=== PATIENT | female | born 2000 | race Caucasian/White ===

== ENCOUNTER → 2024-05-08 | Outpatient (CLI) | payer SELFPAY ==
[2024-05-08 12:16] LABS: Absolute Neutrophil Count 4.8 X10^3/uL (2.0-7.7); Basophil# 0.03 X10^3/uL; Basophil% 0.4 % (0-1); Eosinophil# 0.03 X10^3/uL; Eosinophils% 0.4 % (0-5); Hematocrit 41.7 % (37-47); Hemoglobin 13.8 g/dL (12.0-15.0); Mean Corp Hgb Conc 33.1 g/dL (32-36); Mean Corpuscular Hgb 29.1 pg (27.0-32.0); Mean Corpuscular Volume 87.8 fL (81-99); Mean Platelet Vol. 8.8 fl (6.2-12.0); Monocyte# 0.44 X10^3/uL; Monocyte% 6.5 % (0-10); NRBC Flagged by Analyzer 0 % (0-5); Neutrophil % 70.4 % (47-70); Platelet Count 150 K/mm3 (150-450); RBC Distribution Width SD 38.9 fl (35.1-43.9); Red Blood Count 4.75 M/mm3 (4.2-5.4); White Blood Count 6.8 K/mm3 (4.4-11.0)
[2024-05-08 13:12] LABS: HIV - WCH Non-Reactive (Nonreactive); Hepatitis B Surface Antigen Non-Reactive (Nonreactive); Hepatitis C Antibody Non-Reactive (Nonreactive); Rubella IgG Reactive (Nonreactive); Syphilis Antibodies Non-reactive
[2024-05-12 20:07] LABS: Chlamydia By Nucleic Acid AMP Negative (Negative); Gonococcus By Nucleic Acid AMP Negative (Negative)
[2024-05-16 09:33] LABS: HPV Reflexed? NOT INDICATED
== END | disposition home or self-care (01) ==
PROVIDERS: Referring Provider Advanced Practice Midwife; Visit Provider Advanced Practice Midwife
DX: Z34.00 Encounter for supervision of normal first pregnancy, unspecified trimester (principal)
CPT/HCPCS: 36415; 85025; 86703; 86762; 86780; 86803; 86850; 86900; 86901; 87086; 87340; 87491; 87591; 88175; G0145

== ENCOUNTER → 2024-07-28 | Outpatient (CLI) | payer SELFPAY ==
--- NOTE | 2024-07-28 15:29 | US_ITS ---
PROCEDURE: OB ANATOMY W/ TRANSVAGINAL REASON FOR EXAM: Cervical and/anatomy COMPARISON: None. FINDINGS Number: 1 Position: Breech active during the exam Placental Position: Posterior, grade 0, marginal cord insertion 1.8 cm from the edge Placental Abnormalities: None. DIMENSIONS: Biparietal Diameter: 4.95 cm/21 weeks 0 days Head Circumference: 18.94 cm/21 weeks 2 days Abdominal Circumference: 17.16 cm/22 weeks 1 day Femur Length: 3.32 cm/20 weeks 3 days ESTIMATED WEIGHT: 418 g ESTIMATED WEIGHT PERCENTILE (24+ weeks): 89 % ESTIMATED GESTATIONAL AGE: Baseline: 20 weeks 3 days By Ultrasound: 21 weeks 0 days ESTIMATED DATE OF DELIVERY: Baseline: 12/12/2024 By Ultrasound: 12/08/2024 BIOPHYSICAL ASSESSMENT: Amniotic Fluid Volume: Subjectively normal. Amniotic Fluid Index: (8-24 cm normal range) Cardiac Motion: 138 (average) Trunk and Limb Motion: Present. MATERNAL ANATOMY: Adnexa: Both maternal ovaries are visualized and unremarkable. Cervical Length (if measured): 3.1 cm and closed ANATOMY: Spine: Cervical, thoracic, lumbar and sacrum sub visualized Cerebellum: Visualized. Cisterna Magna: Visualized, 0.42 cm. Lateral Ventricles: Visualized, 0.57 cm Choroid Plexus: Visualized. Face/orbits: Visualized Nose/lip: Visualized Profile: Visualized Heart: Normal four-chamber view, visualized. Stomach: Visualized. Diaphragm: Visualized Abdominal wall: Visualized Kidneys: Visualized. Bladder: Visualized. Cord insertion: Visualized Umbilical Cord: Three vessel cord. Visualized Extremities: Upper and lower visualized US/OB Anatomy w/ Transvaginal IMPRESSION: Single live intrauterine corresponding to 21 weeks 0 days. [facility] ANATOMIC SURVEY. Reading Location: [facility]
== END | disposition home or self-care (01) ==
PROVIDERS: Referring Provider Obstetrics & Gynecology; Visit Provider Obstetrics & Gynecology
DX: Z34.00 Encounter for supervision of normal first pregnancy, unspecified trimester (principal)
CPT/HCPCS: 76805; 76817

== ENCOUNTER → 2024-09-19 | Outpatient (CLI) | payer SELFPAY ==
[2024-09-19 12:16] LABS: Absolute Lymphocyte Count 1.57 X10^3/uL (0.83-4.51); Absolute Neutrophil Count 7.9 X10^3/uL (2.0-7.7); Basophil# 0.03 X10^3/uL; Basophil% 0.3 % (0-1); Eosinophil# 0.04 X10^3/uL; Eosinophils% 0.4 % (0-5); Hematocrit 34.5 % (37-47); Hemoglobin 11.8 g/dL (12.0-15.0); Lymphocyte # 1.57 X10^3/ul (0.83-4.51); Lymphocyte % 15.1 % (19-41); Mean Corp Hgb Conc 34.2 g/dL (32-36); Mean Corpuscular Hgb 32.2 pg (27.0-32.0); Mean Platelet Vol. 9.1 fl (6.2-12.0); Monocyte% 5.8 % (0-10); NRBC Flagged by Analyzer 0 % (0-5); Neutrophil % 75.6 % (47-70); Platelet Count 133 K/mm3 (150-450); RBC Distribution Width CV 12.8 % (11.6-14.6); Red Blood Count 3.67 M/mm3 (4.2-5.4); White Blood Count 10.4 K/mm3 (4.4-11.0)
[2024-09-19 12:59] LABS: Glucose Challenge Gest 1H 50g 81 mg/dL (70-140); HIV Nonreactive (Nonreactive); Syphilis Antibodies Nonreactive (Nonreactive)
== END | disposition home or self-care (01) ==
PROVIDERS: Registered Nurse; Referring Provider Advanced Practice Midwife; Visit Provider Advanced Practice Midwife
DX: Z34.02 Encounter for supervision of normal first pregnancy, second trimester (principal)
CPT/HCPCS: 36415; 82950; 85025; 86703; 86780; 86850; 86900; 86901

== ENCOUNTER → 2024-11-14 | Outpatient (CLI) | payer SELFPAY | END | disposition home or self-care (01) | LOC: LABSPEC 11:25 | PROVIDERS: Referring Provider Obstetrics & Gynecology; Visit Provider Obstetrics & Gynecology | DX: Z34.03 Encounter for supervision of normal first pregnancy, third trimester (principal) | CPT/HCPCS: 87077; 87081; 87186 ==

== ENCOUNTER 2024-11-21 15:28 | Outpatient (CLI) | payer SELFPAY ==
--- NOTE | 2024-11-21 15:34 | US_ITS ---
EXAM: US Second or Third Trimester , Transabdominal CLINICAL INDICATION: SIZE LESS THAN DATES TECHNIQUE: Real-time transabdominal obstetrical ultrasound of the maternal pelvis and a second or third trimester with image documentation. COMPARISON: No relevant prior studies available. FINDINGS: FETUS: 1 HEART RATE: heart rate of 140 beats per minute. PRESENTATION: Cephalic presentation. PLACENTA: Placenta posterior. Grade 1. No abruption. AMNIOTIC FLUID: BRITTANY 11.8 cm. BIOMETRICS GESTATIONAL AGE: Gestational age 37 weeks and 0 days. FLORIDALMA: FLORIDALMA 12/12/2024. EFW: Estimated weight 3073 g. BPD: BPD 9.1 cm. HC: HC 33.1 cm. AC: AC 33.4 cm. FL: FL 7.1 cm. MATERNAL: UTERUS: Unremarkable. No myometrial mass. CERVIX: Unremarkable as visualized. Closed. FREE FLUID: No free fluid. OTHER FINDINGS: OFD 11.7 cm. US/OB Limited With Biometrics IMPRESSION: A single live intrauterine as above. Reading Location: [id number]
[2024-11-21 15:39] VITALS: BP 124/71; PULSE 105; RESP 16; TEMP 37
[2024-11-21 15:44] VITALS: BMI 23.8
--- NOTE | 2024-11-21 21:44 | PCM.PN.BLA ---
Progress Note patient presents through L&D for a growth scan only : EXAM: US Second or Third Trimester , Transabdominal CLINICAL INDICATION: SIZE LESS THAN DATES TECHNIQUE: Real-time transabdominal obstetrical ultrasound of the maternal pelvis and a second or third trimester with image documentation. COMPARISON: No relevant prior studies available. FINDINGS: FETUS: 1 HEART RATE: heart rate of 140 beats per minute. PRESENTATION: Cephalic presentation. PLACENTA: Placenta posterior. Grade 1. No abruption. AMNIOTIC FLUID: BRITTANY 11.8 cm. BIOMETRICS GESTATIONAL AGE: Gestational age 37 weeks and 0 days. FLORIDALMA: FLORIDALMA 12/12/2024. EFW: Estimated weight 3073 g. BPD: BPD 9.1 cm. HC: HC 33.1 cm. AC: AC 33.4 cm. FL: FL 7.1 cm. MATERNAL: UTERUS: Unremarkable. No myometrial mass. CERVIX: Unremarkable as visualized. Closed. FREE FLUID: No free fluid. OTHER FINDINGS: OFD 11.7 cm. US/OB Limited With Biometrics IMPRESSION: A single live intrauterine as above. Reading Location: [facility] AC is 71st% overall 56% Assessment & Plan Assessment/Plan (1) Uterine size-date discrepancy, third trimester: PLAN: normal size and BRITTANY per ultrasound 11/22/24 (2) Positive GBS test: (3) Supervision of normal first : QUALIFIERS: Trimester: third trimester Qualified Code(s): Z34.03 - Encounter for supervision of normal first , third trimester (4) : QUALIFIERS: Weeks of gestation: 36 weeks Qualified Code(s): Z3A.36 - 36 weeks gestation of (5) Rh negative state in antepartum period: PLAN: Plan ok to dc to home as growth and fluid is normal.
== END 2024-11-21 16:45 | disposition home or self-care (01) ==
LOC: WPOUT 15:31 → WP 15:32
PROVIDERS: Referring Provider Obstetrics & Gynecology; Visit Provider Obstetrics & Gynecology
DX: O26.843 Uterine size-date discrepancy, third trimester (principal); Z3A.36 36 weeks gestation of pregnancy
CPT/HCPCS: 76816; 99221; G0378

== ENCOUNTER 2024-11-30 09:59 | Inpatient (IN) | payer SELFPAY ==
[2024-11-30] VITALS (36 sets, daily range): BP systolic 106–145; BP diastolic 66–85; PULSE 79–120; RESP 16–20; TEMP 36.1–37.2; O2SAT 97–103; BMI 24.7
--- OUTSIDE RECORDS SUMMARY | 2024-11-30 04:39 | XMS RPT_ITS | CCD ---
Author Organization [facility] CliniSy[facility]v Care Team Providers Care Dean Of Education Name Role Phone Padmini Vasquez CNM Attending Provider [phone] Padmini Vasquez CNM Referring Provider [phone] Dr. Faith Moreland DO Attending Provider Care Physician, No Primary Primary Care Provider Unavailable Care Physician, No Primary Referring Provider Un available Malina Toro Attending Provider [phone] Dr. Faith Moerland DO Referring Provider Dr. Zulay Ruby MD Attending Provider [phone] Care Physician, No Primary Primary Care Provider Unavailable Care Physician, No Primary Referring Provider Un available Dr. Faith Moreland DO Attending Provider Hilda Hall CNM Attending Provider [phone] Padmini Vasquez CNM Attending Provider [phone] Padmini Vasquez CNM Referring Provider [phone] Care Physician, No Primary Primary Care Provider Unavailable Care Physician, No Primary Referring Provider Un available Malina Toro Attending Provider [phone] Dr. Zulay Ruby MD Referring Provider [phone] Care Physician, No Primary Referring Unava ilable Care Physician, No Primary Primary Care Unava ilable [place] INTERNATIONAL LOGISTICS ANALYSTMalina Attending Unavailable Care Physician, No Primary Primary Care Unava ilable [place] INTERNATIONAL LOGISTICS ANALYSTMalina Attending Unavailable Care Physician, No Primary Referring Unava ilable Faith Moreland Referring Unavailabl e Faith Moreland Attending Unavailabl e Care Physician, No Primary Primary Care Unava ilable Faith Moreland Consulting Unavailabl e Care Physician, No Primary Referring Unava ilable Care Physician, No Primary Primary Care Unava ilable Marcanthony, Zulay Attending Unavailable Care Physician, No Primary Referring Unava ilable Care Physician, No Primary Primary Care Unava ilable Marcanthony, Zulay Attending Unavailable Heather VelFaith lam Attending Unavailabl e Care Physician, No Primary Primary Care Unava ilable Care Physician, No Primary Referring Unava ilable Padmini Vasquez Attending Unavailable Care Physician, No Primary Primary Care Unava ilable Marcanthony, Zulay Referring Unavailable Marcanthony, Zulay Attending Unavailable Care Physician, No Primary Primary Care Unava ilable Care Physician, No Primary Referring Unava ilable Marcanthony, Zulay Attending Unavailable Care Physician, No Primary Primary Care Unava ilable Marcanthony, Zulay Attending Unavailable Care Physician, No Primary Referring Unava ilable Care Physician, No Primary Primary Care Unava ilable Marcanthony, Zulay Admitting Unavailable Marcanthony, Zulay Referring Unavailable Marckamron, Zulay Attending Unavailable Faith Moreland Referring Unavailabl e Faith Moreland Attending Unavailabl e Care Physician, No Primary Primary Care Unava ilable Padmini Vasquez Referring Unavailable Padmini Vasquez Attending Unavailable Care Physician, No Primary Primary Care Unava ilable Padmini Vasquez Referring Unavailable Padmini Vasquez Attending Unavailable Faith Moreland Referring Unavailabl e Faith Moreland Attending Unavailabl e Care Physician, No Primary Primary Care Unava ilable Hilda Hall Attending Unavailable Care Physician, No Primary Primary Care Unava ilable Care Physician, No Primary Referring Unava ilable Hilda Hall Attending Unavailable Care Physician, No Primary Primary Care Unava ilable Care Physician, No Primary Referring Unava ilable Care Physician, No Primary Referring Unava ilable Care Physician, No Primary Primary Care Unava ilable Faith Moreland Attending Unavailabl e Care Physician, No Primary Referring Unava ilable Care Physician, No Primary Primary Care Unava ilable Padmini Vasquez Attending Unavailable Care Physician, No Primary Primary Care Provider Unavailable Dr. Faith Moreland DO Attending Provider Dr. Faith Moreland DO Referring Provider Dr. Faith Moreland DO Other Provider [phone] Medications Current Medications Medication Drug Class(es) Dates Sig (Normalized) Sig (Original) Multivit 88-Ucom-Ssujux 1-Dha (Pnv-Dha) 27 mg iron-1 mg -300 mg capsule (7 sources) Start: 05-02-2024 Multivit 03-Cxuq-Ltwhne 1-Dha (Pnv-Dha) 27 mg iron-1 mg -300 mg capsule Active 1 NMA PO May 02, 2024 1:00am Start: 05-02-2024 Multivit 47-Ir on-Folate 1-Dha (Pnv-Dha) 27 mg iron-1 mg -300 mg capsule Active NMA PO May 02, 2024 1:00am Problems Active Problems Problem Classification Problem Date Documented Da te Episodic/Chronic Bacterial infection; unspecified site (11 sources) Bacteria present; Translations: [Streptococcus, group B, as the cause of diseases classified elsewhere] Onset: 11-21-2024 11-17-2024 Episodic Comment on above: PCN in labor Other complications of (20 sources) RhD negative; Translations: [Other specified related conditions, unspecified trimester] 05-02-2024 Episodic Comment on above: needs rhogam at 28 w eeks and PRN Other complications of (8 sources) Uterine size for dates discrepancy; Translations: [Uterine size-date discrepancy, third trimester] 11-20-2024 Episodic Comment on above: growth US ordered Other complications of (2 sources) Uterine size-date discrepancy, third trimester; Translations: [Uterine size-date discrepancy, third trimester] Onset: 11-25-2024 Episodic Other complications of (2 sources) Other specified related conditions, unspecified trimester; Translations: [Other specified related conditions, unspecified trimester] Onset: 11-21-2024 Episodic Other and delivery including normal (20 sources) Normal ; Translations: [Encounter for supervision of normal first , unspecified trimester] Onset: 08-08-2024 07-09-2024 Episodic Comment on above: PRR , FLORIDALMA 5, Tenzin NIPT & Carrier testi ng - declines. nl anatomy PRR , FLORIDALMA 5, boy Tenzin NIPT, ntd, & Carrier testing - declines. nl anatomy, nl glucose Residual codes; unclassified (2 sources) 36 weeks gestation of ; Translations: [36 weeks gestation of ] Onset: 11-21-2024 Episodic Residual codes; unclassified (2 sources) Unspecified blood type, Rh negative; Translations: [Unspecified blood type, Rh negative] Onset: 11-21-2024 Episodic Residual codes; unclassified (1 source) 32 weeks gestation of ; Translations: [32 weeks gestation of ] Onset: 10-17-2024 Episodic Past or Other Problems Problem Classification Problem Date Documented Da te Episodic/Chronic Residual codes; unclassified (1 source) 22 weeks gestation of ; Translations: [22 weeks gestation of ] Onset: 08-08-2024 Episodic Residual codes; unclassified (1 source) 8 weeks gestation of ; Translations: [8 weeks gestation of ] Onset: 05-08-2024 Episodic Results Test Name Value Interpretation Reference Range Facility OB Limited With Biometricson 11-21-2024 OB Limited With Biometrics [facility] Imaging Services [address] [place] [address] [id number] OB Limited With Biometrics MR#: [id number] Acct: [id number] Name: SEAN MATOS Rep #: [id number] : 2000 F 24 From: Jaime Brantley MD PCP: Care Physician,No Primary Status: DEP CLI Study: OB Limited With Biometrics Date of Exam: 11/21 Exam# [id number] Ordering Dr: Zulay Ruby EXAM: US Second or Third Trimester , Transabdominal CLINICAL INDICATION: SIZE LESS THAN DATES TECHNIQUE: Real-time transabdominal obstetrical ultrasound of the maternal pelvis and a second or third trimester with image documentation. COMPARISON: No relevant prior studies available. FINDINGS: FETUS: 1 HEART RATE: heart rate of 140 beats per minute. PRESENTATION: Cephalic presentation. PLACENTA: Placenta posterior. Grade 1. No abruption. AMNIOTIC FLUID: BRITTANY 11.8 cm. BIOMETRICS GESTATIONAL AGE: Gestational age 37 weeks and 0 days. FLORIDALMA: FLORIDALMA 12/12/2024. EFW: Estimated weight 3073 g. BPD: BPD 9.1 cm. HC: HC 33.1 cm. AC: AC 33.4 cm. FL: FL 7.1 cm. MATERNAL: UTERUS: Unremarkable. No myometrial mass. CERVIX: Unremarkable as visualized. Closed. FREE FLUID: No free fluid. OTHER FINDINGS: OFD 11.7 cm. US/OB Limited With Biometrics IMPRESSION: A single live intrauterine as above. Reading Location: [facility] CC: Dr. Zulay Ruby MD; No Primary Care Physician Clerical Clerk: Signed Normal [facility] - Chemistry and C hemistry - challengeOrdered By: Zulay Ruby on 11-20-2024 Glucose Ql (U) Negative [facility] - UrinalysisOrder ed By: Zulay Ruby on 11-20-2024 Protein Ql (U) Negative [facility] [employer] Office Visit Reporton 11-20-2024 Maritime [facility] Office Visit Report [facility] [address], [address] [place] [address] OFFICE VISIT Date of Service: 11/20/24 MR#: [id number] Acct: [id number] Name: SEAN MATOS Rep #: [id number] : 2000 Provider: Dr. Zulay lehman MD Age/Sex: 24/F [place] [facility] [place] Status: Signed Intake Vital Signs 10/03/24 10:16 11/14/24 08:55 11/20/24 15:37 Height 5 ft 7 in 5 ft 7 in 5 ft 7 in Weight: 156 lb 6 oz BMI 24.5 BP 125/79 H Intake Visit Reasons: 37 wk ob Solution Lead Required: No Is patient in pain?: No Allergies No Known Allergies Allergy (Verified 11/20/24 15:35) Medications ???Medication ???Instructions ???Recorded ???Confirmed ???Type multivitamin no.47-iron fum 27 cap PO 05/02/24 11/20/24 History mg-folate no.1 1 mg-dha 300 mg capsule (PNV-DHA) Last Menstrual Period: 03/07/24 Zika: Zika virus screening: Negative : No PFSH PFSH Family History Father Heart disease, Onset Age: 51 Open heart surgery Sister Seizures, Onset Age: 18 2 seizures- unknown cause Social History adopted: No household members: spouse current occupational status: employed current occupation: [employer] current occupational exposures/hazards: No pets and animals: Yes (Avoid litterbox) pets and animals: cat(s) and dog(s) history of recent travel: Yes ( - February) out of state: Yes out of country: No sexually active: Yes Smoking Status: Never smoker alcohol intake: current alcohol intake frequency: a few times a week details: Not while . substance use type: does not use well-balanced diet: daily or most days caffeine: No eating out: rarely or never during the past year weight has: remained stable what type of physical activity do you participate in: walking and aerobics frequency: 1-2 times per week duration: 15-30 minutes/day vernon/confucianist: Mandaen seatbelt use: always do you feel safe at home: Yes additional social history: [employer]enzin- [employer] History 1 Elective abortions Hx Para 0 Spontaneous abortions Hx # Term Pregnancies Ectopic pregnancies Hx # Pregnancies Multiple births # of living children HPI 37 wk ob Details: SEAN MATOS is a 24 year old who presents for routine OB visit. OB Visit FLORIDALMA Calculator Estimated Delivery Date Method Current WG Current Estimate 12/12/24 LMP (Certain) 36w 6d Other Estimates 12/09/24 Ultrasound #1 37w 2d Expected Delivery Route/Plan Labor Preferences- CB/BF classes: yes labor support person: Tenzin labor intervention preferences: [] pain management options preferred: prefers minimal intervention. open to epidural if medically needed cut cord/dad catch: yes : yes PP control planned: [] discussed possible routes of delivery and associated risks: [] special requests: [] Specific Issue/Plans Covid status: [] Flu vaccine: [] Tdap vaccine: declined Rhogam: obtained 09/19/2024 LARC form signed: done Problem list reviewed and updated with the most current plan of care details and appropriate orders placed. Relevant counseling for the gestational age provided. Continue routine care and follow up unless otherwise noted in visit notes/problem list details Initial Weight: 135 lb Date -???-???-???-???-??? -???-???-???-???-??? -???-???- EGA Weight BP Urine Prot -???-???-???-???-??? -???-???-???-???-??? -???-???- Glucose FHR FuHt Pres Dilation -???-???-???-???-??? -???-???-???-???-??? -???-???- Effaced St Visit Note 05/08/24 -???-???-???-???-??? -???-???-???-???-??? -???-???- 8w 6d 135 lb (+0 oz) 133/80 -???-???-???-???-??? -???-???-???-???-??? -???-???- 176 -???-???-???-???-??? -???-???-???-???-??? -???-???- KW- CRL cons with dates. declines NIPT at this time. 06/11/24 -???-???-???-???-??? -???-???-???-???-??? -???-???- 13w 5d 133 lb 6 oz (-1 lb 10 oz) 129/83 Negative -???-???-???-???-??? -???-???-???-???-??? -???-???- Negative 155 -???-???-???-???-??? -???-???-???-???-??? -???-???- JV- CRL cons istent with dates still. No complaints today. anatomy scan ordered. 07/09/24 -???-???-???-???-??? -???-???-???-???-??? -???-???- 17w 5d 138 lb 4 oz (+3 lb 4 oz) 116/78 Negative -???-???-???-???-??? -???-???-???-???-??? -???-???- Negative 151 -???-???-???-???-??? -???-???-???-???-??? -???-???- MH-No VB. Fe eling movement. US anatomy next week 08/08/24 -???-???-???-???-??? -???-???-???-???-??? -???-???- 22w 0d 141 lb (+6 lb) 110/70 Negative -???-???-???-???-??? -???-???-???-???-??? -???-???- Negative 140 22 -???-???-???-???-??? -???-???-???-???-??? -???-???- SM- no vb lo f good fm no reuglar ctx 04 (more content not included)... Normal [facility] Rule out Beta Strep (Grp. B) on 11-18-2024 QUE Rule out Beta Strep (Grp. B) 11/16 SUB CAMP. Streptococcus group B Amount Growth Growth Streptococcus group B: REACTION Ampicillin Islt HONORIO <=0.25 Cefotaxime Islt HONORIO <=0.12 S cefTRIAXone Islt HONORIO <=0.12 S Clindamycin Islt HONORIO >=1 R Erythromycin Islt HONORIO >=8 R Linezolid Islt HONORIO <=2 S Vancomycin Islt HONORIO 0.5 S Normal [facility] Comment on above: Performed By: #### L 3890.6005, L3890.6300, L3890.6100, L100.0100, BTS, L509.4005, L509.8000 #### [facility] [address] [place], [address] Laboratory - Chemistry and C hemistry - challengeOrdered By: Zulay Ruby on 2024 Glucose Ql (U) Negative [facility] - UrinalysisOrder ed By: Zulay Ruby on 2024 Protein Ql (U) Negative [facility] [employer] Office Visit Reporton 2024 Mar[employer] Office Visit Report [facility] [address], [address] [place] [address] OFFICE VISIT Date of Service: 11/14/24 MR#: [id number] Acct: [id number] Name: SEAN MATOS Rep #: [id number] : 2000 Provider: Dr. Zulay lehman MD Age/Sex: 24/F [place] [facility] [place] Status: Signed Intake Vital Signs 10/03/24 10:16 10/29/24 08:30 11/14/24 08:50 11/14/24 08:55 Height 5 ft 7 in 5 ft 7 in 5 ft 7 in 5 ft 7 in Weight: 155 lb 8 oz BMI 24.3 BP 123/82 H Intake Visit Reasons: 36 wk ob Solution Lead Required: No Is patient in pain?: No Feel stressed/tense/nervo us/anxious/difficult y sleeping: not at all Allergies No Known Allergies Allergy (Verified 11/14/24 08:50) Medications ???Medication ???Instructions ???Recorded ???Confirmed ???Type multivitamin no.47-iron fum 27 cap PO 05/02/24 11/14/24 History mg-folate no.1 1 mg-dha 300 mg capsule (PNV-DHA) Last Menstrual Period: 03/07/24 Zika: Zika virus screening: Negative : No PFSH PFSH Family History Father Heart disease, Onset Age: 51 Open heart surgery Sister Seizures, Onset Age: 18 2 seizures- unknown cause Social History adopted: No household members: spouse current occupational status: employed current occupation: [employer] current occupational exposures/hazards: No pets and animals: Yes (Avoid litterbox) pets and animals: cat(s) and dog(s) history of recent travel: Yes ( - February) out of state: Yes out of country: No sexually active: Yes Smoking Status: Never smoker alcohol intake: current alcohol intake frequency: a few times a week details: Not while . substance use type: does not use well-balanced diet: daily or most days caffeine: No eating out: rarely or never during the past year weight has: remained stable what type of physical activity do you participate in: walking and aerobics frequency: 1-2 times per week duration: 15-30 minutes/day vernon/confucianist: Mandaen seatbelt use: always do you feel safe at home: Yes additional social history: [employer]enzin- [employer] History 1 Elective abortions Hx Para 0 Spontaneous abortions Hx # Term Pregnancies Ectopic pregnancies Hx # Pregnancies Multiple births # of living children HPI 36 wk ob Details: SEAN MATOS is a 24 year old who presents for routine OB visit. OB Visit FLORIDALMA Calculator Estimated Delivery Date Method Current WG Current Estimate 12/12/24 LMP (Certain) 36w 0d Other Estimates 12/09/24 Ultrasound #1 36w 3d Expected Delivery Route/Plan Labor Preferences- CB/BF classes: yes labor support person: Tenzin labor intervention preferences: [] pain management options preferred: prefers minimal intervention. open to epidural if medically needed cut cord/dad catch: yes : yes PP control planned: [] discussed possible routes of delivery and associated risks: [] special requests: [] Specific Issue/Plans Covid status: [] Flu vaccine: [] Tdap vaccine: declined Rhogam: obtained 09/19/2024 LARC form signed: done Problem list reviewed and updated with the most current plan of care details and appropriate orders placed. Relevant counseling for the gestational age provided. Continue routine care and follow up unless otherwise noted in visit notes/problem list details Initial Weight: 135 lb Date -???-???-???-???-??? -???-???-???-???-??? -???-???- EGA Weight BP Urine Prot -???-???-???-???-??? -???-???-???-???-??? -???-???- Glucose FHR FuHt Pres Dilation -???-???-???-???-??? -???-???-???-???-??? -???-???- Effaced St Visit Note 05/08/24 -???-???-???-???-??? -???-???-???-???-??? -???-???- 8w 6d 135 lb (+0 oz) 133/80 -???-???-???-???-??? -???-???-???-???-??? -???-???- 176 -???-???-???-???-??? -???-???-???-???-??? -???-???- KW- CRL cons with dates. declines NIPT at this time. 06/11/24 -???-???-???-???-??? -???-???-???-???-??? -???-???- 13w 5d 133 lb 6 oz (-1 lb 10 oz) 129/83 Negative -???-???-???-???-??? -???-???-???-???-??? -???-???- Negative 155 -???-???-???-???-??? -???-???-???-???-??? -???-???- JV- CRL cons istent with dates still. No complaints today. anatomy scan ordered. 07/09/24 -???-???-???-???-??? -???-???-???-???-??? -???-???- 17w 5d 138 lb 4 oz (+3 lb 4 oz) 116/78 Negative -???-???-???-???-??? -???-???-???-???-??? -???-???- Negative 151 -???-???-???-???-??? -???-???-???-???-??? -???-???- -No VB. Fe eling movement. US anatomy next week 08/08/24 -???-???-???-???-??? -???-???-???-???-??? -???-???- 22w 0d 141 lb (+6 lb) 110/70 Negative -???-???-???-???-??? -???-???-???-???-??? -???-???- Negative 140 22 - (more content not included)... Normal [facility] - Chemistry and C hemistry - challengeOrdered By: Malina Antunez on 10-29-2024 Glucose Ql (U) Negative [facility] - UrinalysisOrder ed By: Malina Antunez on 10-29-2024 Protein Ql (U) Negative [facility] Office Visit Reporton 10-29-2024 Mar[facility] Office Visit Report [address], [address] [place] [address] OFFICE VISIT Date of Service: 10/29/24 MR#: [id number] Acct: [id number] Name: SEAN MATOS Rep #: [id number] : 2000 Provider: JULIAN campos Age/Sex: 23/F [place] [facility] [place] Status: Signed Intake Vital Signs 09/19/24 08:31 10/17/24 10:03 10/29/24 08:30 Height 5 ft 7 in 5 ft 7 in 5 ft 7 in Weight: 151 lb 6 oz BMI 23.7 BP 124/80 H Intake Visit Reasons: 34 wk ob Chief Complaint: 34 Week OB Solution Lead Required: No Is patient in pain?: No Allergies No Known Allergies Allergy (Verified 10/29/24 08:31) Medications ???Medication ???Instructions ???Recorded ???Confirmed ???Type multivitamin no.47-iron fum 27 cap PO 05/02/24 10/29/24 History mg-folate no.1 1 mg-dha 300 mg capsule (PNV-DHA) Last Menstrual Period: 03/07/24 Zika: Zika virus screening: Negative : Yes PFSH PFSH Family History Father Heart disease, Onset Age: 51 Open heart surgery Sister Seizures, Onset Age: 18 2 seizures- unknown cause Social History adopted: No household members: spouse current occupational status: employed current occupation: [employer] current occupational exposures/hazards: No pets and animals: Yes (Avoid litterbox) pets and animals: cat(s) and dog(s) history of recent travel: Yes ( - February) out of state: Yes out of country: No sexually active: Yes Smoking Status: Never smoker alcohol intake: current alcohol intake frequency: a few times a week details: Not while . substance use type: does not use well-balanced diet: daily or most days caffeine: No eating out: rarely or never during the past year weight has: remained stable what type of physical activity do you participate in: walking and aerobics frequency: 1-2 times per week duration: 15-30 minutes/day vernon/confucianist: Mandaen seatbelt use: always do you feel safe at home: Yes additional social history: [employer]enzin- [employer] History 1 Elective abortions Hx Para 0 Spontaneous abortions Hx # Term Pregnancies Ectopic pregnancies Hx # Pregnancies Multiple births # of living children HPI 34 wk ob Details: SEAN MATOS is a 23 year old who presents for routine OB visit. OB Visit FLORIDALMA Calculator Estimated Delivery Date Method Current WG Current Estimate 12/12/24 LMP (Certain) 33w 5d Other Estimates 12/09/24 Ultrasound #1 34w 1d Expected Delivery Route/Plan Labor Preferences- CB/BF classes: yes labor support person: Tenzin labor intervention preferences: [] pain management options preferred: limited cut cord/dad catch: yes : yes PP control planned: [] discussed possible routes of delivery and associated risks: [] special requests: [] Specific Issue/Plans Covid status: [] Flu vaccine: [] Tdap vaccine: declined Rhogam: obtained 09/19/2024 LARC form signed: done Problem list reviewed and updated with the most current plan of care details and appropriate orders placed. Relevant counseling for the gestational age provided. Continue routine care and follow up unless otherwise noted in visit notes/problem list details Initial Weight: 135 lb Date -???-???-???-???-??? -???-???-???-???-??? -???-???- EGA Weight BP Urine Prot -???-???-???-???-??? -???-???-???-???-??? -???-???- Glucose FHR FuHt Pres Dilation -???-???-???-???-??? -???-???-???-???-??? -???-???- Effaced St Visit Note 05/08/24 -???-???-???-???-??? -???-???-???-???-??? -???-???- 8w 6d 135 lb (+0 oz) 133/80 -???-???-???-???-??? -???-???-???-???-??? -???-???- 176 -???-???-???-???-??? -???-???-???-???-??? -???-???- KW- CRL cons with dates. declines NIPT at this time. 06/11/24 -???-???-???-???-??? -???-???-???-???-??? -???-???- 13w 5d 133 lb 6 oz (-1 lb 10 oz) 129/83 Negative -???-???-???-???-??? -???-???-???-???-??? -???-???- Negative 155 -???-???-???-???-??? -???-???-???-???-??? -???-???- JV- CRL cons istent with dates still. No complaints today. anatomy scan ordered. 07/09/24 -???-???-???-???-??? -???-???-???-???-??? -???-???- 17w 5d 138 lb 4 oz (+3 lb 4 oz) 116/78 Negative -???-???-???-???-??? -???-???-???-???-??? -???-???- Negative 151 -???-???-???-???-??? -???-???-???-???-??? -???-???- -No VB. Fe eling movement. US anatomy next week 08/08/24 -???-???-???-???-??? -???-???-???-???-??? -???-???- 22w 0d 141 lb (+6 lb) 110/70 Negative -???-???-???-???-??? -???-???-???-???-??? -???-???- Negative 140 22 -???-???-???-???-??? -???-???-???-???-??? -???-???- SM- no vb lo f good fm no reuglar ctx 09/05/24 -???-???-???-???-??? -? (more content not included)... Normal [facility] - Chemistry and C hemistry - challengeOrdered By: Padmini Vasquez on 10-17-2024 Glucose Ql (U) Negative [facility] - UrinalysisOrder ed By: Padmini Vasquez on 10-17-2024 Protein Ql (U) Negative [facility] [employer] Office Visit Reporton 10-17-2024 Mar[facility] Office Visit Report [facility], [facility] [address] [place] [address] OFFICE VISIT Date of Service: 10/17/24 MR#: [id number] Acct: [id number] Name: SEAN MATOS Rep #: [id number] : 2000 Provider: CRISS Awad [facility] Age/Sex: 23/F [place] [facility] [place] Status: Signed Intake Vital Signs 10/03/24 10:16 10/17/24 10:03 Height 5 ft 7 in 5 ft 7 in Weight: 151 lb 8 oz BMI 23.7 BP 128/77 H Intake Visit Reasons: 32 wk ob Chief Complaint: 32wk OB Solution Lead Required: No Is patient in pain?: No Allergies No Known Allergies Allergy (Verified 10/17/24 10:01) Medications ???Medication ???Instructions ???Recorded ???Confirmed ???Type multivitamin no.47-iron fum 27 cap PO 05/02/24 10/17/24 History mg-folate no.1 1 mg-dha 300 mg capsule (PNV-DHA) Last Menstrual Period: 03/07/24 : No Have you fallen in the past year?: No PFSH PFSH Family History Father Heart disease, Onset Age: 51 Open heart surgery Sister Seizures, Onset Age: 18 2 seizures- unknown cause Social History adopted: No household members: spouse current occupational status: employed current occupation: [employer] current occupational exposures/hazards: No pets and animals: Yes (Avoid litterbox) pets and animals: cat(s) and dog(s) history of recent travel: Yes (February) out of state: Yes out of country: No sexually active: Yes Smoking Status: Never smoker alcohol intake: current alcohol intake frequency: a few times a week details: Not while . substance use type: does not use well-balanced diet: daily or most days caffeine: No eating out: rarely or never during the past year weight has: remained stable what type of physical activity do you participate in: walking and aerobics frequency: 1-2 times per week duration: 15-30 minutes/day vernon/confucianist: Mandaen seatbelt use: always do you feel safe at home: Yes additional social history: Tenzin- [employer] History 1 Elective abortions Hx Para 0 Spontaneous abortions Hx # Term Pregnancies Ectopic pregnancies Hx # Pregnancies Multiple births # of living children HPI 32 wk ob Details: SEAN MATOS is a 23 year old who presents for routine OB visit. OB Visit FLORIDALMA Calculator Estimated Delivery Date Method Current WG Current Estimate 12/12/24 LMP (Certain) 32w 0d Other Estimates 12/09/24 Ultrasound #1 32w 3d Expected Delivery Route/Plan Labor Preferences- CB/BF classes: yes labor support person: Tenzin, potentially having a auto suspension and steering mechanic labor intervention preferences: [] pain management options preferred: [] cut cord/dad catch: [] : yes PP control planned: [] discussed possible routes of delivery and associated risks: [] special requests: [] Specific Issue/Plans Covid status: [] Flu vaccine: [] Tdap vaccine: [] Rhogam: obtained 09/19/2024 LAR form signed: done Problem list reviewed and updated with the most current plan of care details and appropriate orders placed. Relevant counseling for the gestational age provided. Continue routine care and follow up unless otherwise noted in visit notes/problem list details Initial Weight: 135 lb Date -???-???-???-???-??? -???-???-???-???-??? -???-???- EGA Weight BP Urine Prot -???-???-???-???-??? -???-???-???-???-??? -???-???- Glucose FHR FuHt Pres Dilation -???-???-???-???-??? -???-???-???-???-??? -???-???- Effaced St Visit Note 05/08/24 -???-???-???-???-??? -???-???-???-???-??? -???-???- 8w 6d 135 lb (+0 oz) 133/80 -???-???-???-???-??? -???-???-???-???-??? -???-???- 176 -???-???-???-???-??? -???-???-???-???-??? -???-???- KW- CRL cons with dates. declines NIPT at this time. 06/11/24 -???-???-???-???-??? -???-???-???-???-??? -???-???- 13w 5d 133 lb 6 oz (-1 lb 10 oz) 129/83 Negative -???-???-???-???-??? -???-???-???-???-??? -???-???- Negative 155 -???-???-???-???-??? -???-???-???-???-??? -???-???- JV- CRL cons istent with dates still. No complaints today. anatomy scan ordered. 07/09/24 -???-???-???-???-??? -???-???-???-???-??? -???-???- 17w 5d 138 lb 4 oz (+3 lb 4 oz) 116/78 Negative -???-???-???-???-??? -???-???-???-???-??? -???-???- Negative 151 -???-???-???-???-??? -???-???-???-???-??? -???-???- MH-No VB. Fe eling movement. US anatomy next week 08/08/24 -???-???-???-???-??? -???-???-???-???-??? -???-???- 22w 0d 141 lb (+6 lb) 110/70 Negative -???-???-???-???-??? -???-???-???-???-??? -???-???- Negative 140 22 -???-???-???-???-??? -???-???-???-???-??? -???-???- SM- no vb lo f good fm no reuglar ctx 09/05/24 -???-???-???-???-??? -???-???-???-???-??? -???-???- (more content not included)... Normal [facility] - Chemistry and C hemistry - challengeOrdered By: Faith Pagan on 10-03-2024 Glucose Ql (U) Negative [facility] - UrinalysisOrder ed By: Faith Pagan on 10-03-2024 Protein Ql (U) Negative [facility] [employer] Office Visit Reporton 10-03-2024 [facility] Office Visit Report [facility] [address], [address] [place] [address] OFFICE VISIT Date of Service: 10/03/24 MR#: [id number] Acct: [id number] Name: SEAN MATOS Rep #: [id number] : 2000 Provider: Dr. Faith Wood DO Age/Sex: 23/F Location[place] [facility] [place] Status: Signed Intake Vital Signs 09/19/24 08:31 10/03/24 10:16 10/03/24 10:16 Height 5 ft 7 in 5 ft 7 in 5 ft 7 in Weight: 152 lb 6 oz BMI 23.8 BP 131/80 H Intake Visit Reasons: 30 wk ob Solution Lead Required: No Is patient in pain?: No Allergies No Known Allergies Allergy (Verified 10/03/24 10:15) Medications ???Medication ???Instructions ???Recorded ???Confirmed ???Type multivitamin no.47-iron fum 27 cap PO 05/02/24 10/03/24 History mg-folate no.1 1 mg-dha 300 mg capsule (PNV-DHA) Last Menstrual Period: 03/07/24 Zika: Zika virus screening: Negative : No PFSH PFSH Family History Father Heart disease, Onset Age: 51 Open heart surgery Sister Seizures, Onset Age: 18 2 seizures- unknown cause Social History adopted: No household members: spouse current occupational status: employed current occupation: [employer] current occupational exposures/hazards: No pets and animals: Yes (Avoid litterbox) pets and animals: cat(s) and dog(s) history of recent travel: Yes ( - February) out of state: Yes out of country: No sexually active: Yes Smoking Status: Never smoker alcohol intake: current alcohol intake frequency: a few times a week details: Not while . substance use type: does not use well-balanced diet: daily or most days caffeine: No eating out: rarely or never during the past year weight has: remained stable what type of physical activity do you participate in: walking and aerobics frequency: 1-2 times per week duration: 15-30 minutes/day vernon/confucianist: Mandaen seatbelt use: always do you feel safe at home: Yes additional social history: Tenzin- [employer] History 1 Elective abortions Hx Para 0 Spontaneous abortions Hx # Term Pregnancies Ectopic pregnancies Hx # Pregnancies Multiple births # of living children HPI 30 wk ob Details: SEAN MATOS is a 23 year old who presents for routine OB visit. OB Visit FLORIDALMA Calculator Estimated Delivery Date Method Current WG Current Estimate 12/12/24 LMP (Certain) 30w 0d Other Estimates 12/09/24 Ultrasound #1 30w 3d Expected Delivery Route/Plan Labor Preferences- CB/BF classes: yes labor support person: Tenzin, potentially having a hannah labor intervention preferences: [] pain management options preferred: [] cut cord/dad catch: [] : yes PP control planned: [] discussed possible routes of delivery and associated risks: [] special requests: [] Specific Issue/Plans Covid status: [] Flu vaccine: [] Tdap vaccine: [] Rhogam: obtained 09/19/2024 LARC form signed: done Problem list reviewed and updated with the most current plan of care details and appropriate orders placed. Relevant counseling for the gestational age provided. Continue routine care and follow up unless otherwise noted in visit notes/problem list details Initial Weight: 135 lb Date -???-???-???-???-??? -???-???-???-???-??? -???-???- EGA Weight BP Urine Prot -???-???-???-???-??? -???-???-???-???-??? -???-???- Glucose FHR FuHt Pres Dilation -???-???-???-???-??? -???-???-???-???-??? -???-???- Effaced St Visit Note 05/08/24 -???-???-???-???-??? -???-???-???-???-??? -???-???- 8w 6d 135 lb (+0 oz) 133/80 -???-???-???-???-??? -???-???-???-???-??? -???-???- 176 -???-???-???-???-??? -???-???-???-???-??? -???-???- KW- CRL cons with dates. declines NIPT at this time. 06/11/24 -???-???-???-???-??? -???-???-???-???-??? -???-???- 13w 5d 133 lb 6 oz (-1 lb 10 oz) 129/83 Negative -???-???-???-???-??? -???-???-???-???-??? -???-???- Negative 155 -???-???-???-???-??? -???-???-???-???-??? -???-???- JV- CRL cons istent with dates still. No complaints today. anatomy scan ordered. 07/09/24 -???-???-???-???-??? -???-???-???-???-??? -???-???- 17w 5d 138 lb 4 oz (+3 lb 4 oz) 116/78 Negative -???-???-???-???-??? -???-???-???-???-??? -???-???- Negative 151 -???-???-???-???-??? -???-???-???-???-??? -???-???- -No VB. Fe eling movement. US anatomy next week 08/08/24 -???-???-???-???-??? -???-???-???-???-??? -???-???- 22w 0d 141 lb (+6 lb) 110/70 Negative -???-???-???-???-??? -???-???-???-???-??? -???-???- Negative 140 22 -???-???-???-???-??? -???-???-???-???-??? -???-???- SM- no vb lo f good fm no reuglar ctx 09/05/24 -???-???-???-???-??? -???-???-? (more content not included)... Normal [facility] Absolute lymphocyte countOrd ered By: Hilda Hall on 09-19-2024 Lymphocytes Auto (Unsp spec) [#/Vol] 1.57 10*3/uL 0.83-4.51 [facility] Absolute neutrophil countOrd ered By: Hilda Hall on 09-19-2024 Neutrophils (Bld) [#/Vol] 7.9 10*3/uL High 2.0-7.7 [facility] Automated lymphocyte count a s percentage of total leukocytesOrdered By: Hilda Hall on 09-19-2024 Lymphocytes/100 WBC Auto (Unsp spec) 15.1 % Low 19-41 [facility] Basophil percentageOrdered B y: Hilda Hall on 09-19-2024 Basophils/100 WBC (Bld) 0.3 % 0-1 [facility] CBC W/Diff, Automatedon 08-27 Absolute Lymph 1.57 X10 3/uL Normal 0.83-4.51 [facility] Comment on above: Performed By: #### L 501.0250, BTS, L100.0100, L3890.6006, L509.8002 #### [facility] [address] [place], [address] Absolute Neut 7.9 X10 3/uL High 2.0-7.7 [facility] Comment on above: Performed By: #### L 501.0250, BTS, L100.0100, L3890.6006, L509.8002 #### [facility] [address] [place], [address] Basophils/100 WBC (Bld) 0.3 % Normal 0-1 [facility] Comment on above: Performed By: #### L 501.0250, BTS, L100.0100, L3890.6006, L509.8002 #### [facility] [address] [place], [address] Eosinophils/100 WBC (Bld) 0.4 % Normal 0-5 [facility] Comment on above: Performed By: #### L 501.0250, BTS, L100.0100, L3890.6006, L509.8002 #### [facility] [address] [place], [address] Erythrocyte distribution width (RBC) [Ratio] 12.8 % Normal 11.6-14.6 [facility] Comment on above: Performed By: #### L 501.0250, BTS, L100.0100, L3890.6006, L509.8002 #### [facility] [address] [place], [address] Hematocrit (Bld) [Volume fraction] 34.5 % Low 37-47 [facility] Comment on above: Performed By: #### L 501.0250, BTS, L100.0100, L3890.6006, L509.8002 #### [facility] [address] [place], [address] Hemoglobin (Bld) [Mass/Vol] 11.8 g/dL Low 12.0-15.0 [facility] Comment on above: Performed By: #### L 501.0250, BTS, L100.0100, L3890.6006, L509.8002 #### [facility] [address] [place], [address] IG% 2.800 High 0.0-0.9 [facility] Comment on above: Result Comment: IG% - Immature Granulocytes (promyelocytes, myelocytes and metamyelocytes) > 1% indicates that a LEFT SHIFT is Present. Performed By: #### L 501.0250, BTS, L100.0100, L3890.6006, L509.8002 #### [facility] [address] [place], [address] Lymphocytes/100 WBC (Bld) 15.1 % Low 19-41 [facility] Comment on above: Performed By: #### L 501.0250, BTS, L100.0100, L3890.6006, L509.8002 #### [facility] [address] [place], [address] MCH (RBC) [Entitic mass] 32.2 pg High 27.0-32.0 [facility] Comment on above: Performed By: #### L 501.0250, BTS, L100.0100, L3890.6006, L509.8002 #### [facility] [address] [place], [address] MCHC (RBC) [Mass/Vol] 34.2 g/dL Normal 32-36 [facility] Comment on above: Performed By: #### L 501.0250, BTS, L100.0100, L3890.6006, L509.8002 #### [facility] [address] [place], [address] MCV (RBC) [Entitic vol] 94.0 fL Normal 81-99 [facility] Comment on above: Performed By: #### L 501.0250, BTS, L100.0100, L3890.6006, L509.8002 #### [facility] [address] [place], [address] Monocytes/100 WBC (Bld) 5.8 % Normal 0-10 [facility] Comment on above: Performed By: #### L 501.0250, BTS, L100.0100, L3890.6006, L509.8002 #### [facility] [address] [place], [address] Neutrophils/100 WBC (Bld) 75.6 % High 47-70 [facility] Comment on above: Performed By: #### L 501.0250, BTS, L100.0100, L3890.6006, L509.8002 #### [facility] [address] [place], [address] Nucleated RBC (Bld) [#/Vol] 0 10*3/uL Normal 0-5 [facility] Comment on above: Performed By: #### L 501.0250, BTS, L100.0100, L3890.6006, L509.8002 #### [facility] [address] [place], [address] Platelet mean volume (Bld) [Entitic vol] 9.1 fL Normal 6.2-12.0 [facility] Comment on above: Performed By: #### L 501.0250, BTS, L100.0100, L3890.6006, L509.8002 #### [facility] [address] [place], [address] Platelets (Bld) [#/Vol] 133 10*3/uL Low 150-450 [facility] Comment on above: Performed By: #### L 501.0250, BTS, L100.0100, L3890.6006, L509.8002 #### [facility] [address] [place], [address] RBC (Bld) [#/Vol] 3.67 10*6/uL Low 4.2-5.4 [facility] Comment on above: Performed By: #### L 501.0250, BTS, L100.0100, L3890.6006, L509.8002 #### [facility] [address] [place], [address] RDW SD 44.0 fl High 35.1-43.9 [facility] Comment on above: Performed By: #### L 501.0250, BTS, L100.0100, L3890.6006, L509.8002 #### [facility] [address] [place], [address] WBC (Bld) [#/Vol] 10.4 10*3/uL Normal 4.4-11.0 [facility] Comment on above: Performed By: #### L 501.0250, BTS, L100.0100, L3890.6006, L509.8002 #### [facility] [address] [place], [address] Eosinophil percentageOrdered By: Hilda Hall on 09-19-2024 Eosinophils/100 WBC (Bld) 0.4 % 0-5 [facility] Erythrocyte distribution wid th ratioOrdered By: Hilda Hall on 09-19-2024 Erythrocyte distribution width (RBC) [Ratio] 12.8 % 11.6-14.6 [facility] Erythrocyte distribution wid th standard deviationOrdered By: Hilda Hall on 09-19-2024 Erythrocyte distribution width (RBC) [Ratio] 44.0 fl High 35.1-43.9 [facility] Glucose Challenge Gest 1H 50 bessie 09-19-2024 GLU GEST 50g 1H 81 mg/dL Normal 70-140 [facility] Comment on above: Performed By: #### L 501.0250, BTS, L100.0100, L3890.6006, L509.8002 #### [facility] [address] [facility] [place], [address] Glucose measurement at 2 giovany rs post-dose gestational glucose tolerance testOrdered By: Hilda Hall on 09-19-2024 Glucose [Mass/Vol] 81 mg/dL 70-140 [facility] HIVon 09-19-2024 HIV Non-Reactive Normal Nonreactive [facility] Comment on above: Result Comment: Non- Reactive Reactive Repeatedly reactive samples must be confirmed according to CDC recommended confirmatory algorithms. The subresults for either HIVAG or AHIV can be used as an aid in the selection of the confirmation algorithm for reactive samples. Send out specimens with Reactive results to [facility] for confirmation. Order the HIV antibody detection and differentiation: #[id number] Performed By: #### L 3890.6005, L3890.6300, L3890.6100, L100.0100, BTS, L509.4005, L509.8000 #### [facility] [address] [place], [place], [id number] Hematocrit Auto (Bld) [Volum e fraction]Ordered By: Hilda Hall on 09-19-2024 Hematocrit (Bld) [Volume fraction] 34.5 % Low 37-47 [facility] Hemoglobin measurementOrdere d By: Hilda Hall on 09-19-2024 Hemoglobin (Bld) [Mass/Vol] 11.8 g/dL Low 12.0-15.0 [facility] Immature granulocytes/100 WB C Auto (Bld)Ordered By: Hilda Hall on 09-19-2024 Immature granulocytes/100 WBC (Bld) 2.800 % High 0.0-0.9 [facility] Comment on above: IG% - Immature Granu locytes (promyelocytes, myelocytes and metamyelocytes) > 1% indicates that a LEFT SHIFT is Present. Laboratory - Chemistry and C hemistry - challengeOrdered By: Hilda Hall on 09-19-2024 Glucose Ql (U) 100 g/dL [facility] Comment on above: did glucose test thi s morning Laboratory - UrinalysisOrder ed By: Hilda Hall on 09-19-2024 Protein Ql (U) Negative [facility] MCV (mean corpuscular volume ) determinationOrdered By: Hilda Hall on 09-19-2024 MCV (RBC) [Entitic vol] 94.0 fL 81-99 [facility] Mean corpuscular hemoglobin (MCH) determinationOrdered By: Hilda Hall on 09-19-2024 MCH (RBC) [Entitic mass] 32.2 pg High 27.0-32.0 [facility] Mean corpuscular hemoglobin concentration (MCHC) determinationOrdered By: Hlida Hall on 09-19-2024 MCHC (RBC) [Mass/Vol] 34.2 g/dL 32-36 [facility] Mean platelet volume determi nationOrdered By: Hilda Hall on 09-19-2024 Platelet mean volume (Bld) [Entitic vol] 9.1 fL 6.2-12.0 [facility] Monocyte percentageOrdered B y: Hilda Hall on 09-19-2024 Monocytes/100 WBC (Bld) 5.8 % 0-10 [facility] Neutrophil percentageOrdered By: Hilda Hall on 09-19-2024 Neutrophils/100 WBC (Bld) 75.6 % High 47-70 [facility] No Panel InformationOrdered By: Hilda Hall on 09-19-2024 HIV (1&2) Antibody Non-Reactive Nonreactive [facility] Comment on above: Non-ReactiveReactive Repeatedly reactive samples must be confirmed according to CDC recommended confirmatory algorithms. The subresults for either HIVAG or AHIV can be used as an aid in the selection of the confirmation algorithm for reactive samples.Send out specimens with Reactive results to [facility] for confirmation.Order the HIV antibody detection and differentiation: #[id number] Nucleated red blood cell per centageOrdered By: Hilda Hall on 09-19-2024 Nucleated RBC/100 WBC (Bld) [Ratio] 0 % 0-5 [facility] [facility] Visit Reporton 09-19-2024 [facility] Office Visit Report [address], [address] [place] [address] OFFICE VISIT Date of Service: 09/19/24 MR#: [id number] Acct: [id number] Name: SEAN MATOS Rep #: [id number] : 2000 Provider: CRISS fox Age/Sex: 23/F [place] [facility] [place] Status: Signed with Addenda ADDENDUM by Michelle Winslow on 09/19/24 at 0926 Office Procedure Documentation entered by Michelle Winslow 09/19/24 09:26: Injections Is this a patient provided medication?: No Office Meds RhoGAM Ultra-Filtered PLUS 1,500 unit (300 mcg) intramuscular syringe Performing Provider: Hilda Hall CNM Performing Location: [facility] Administered by: Michelle Winslow on 09/19/24 09:24 Dose Route Admin Location Dispensed Lot Number Expiration Date NDC Man ufacturer 1,500 unit IM rt gluteus 1,500 ea [id number] 10/31/26 41903-228-39 [facility] Date cc: * Signed Intake Vital Signs 06/11/24 08:59 09/05/24 15:19 09/19/24 08:31 Height 5 ft 7 in 5 ft 7 in 5 ft 7 in Weight: 148 lb 6 oz BMI 23.2 BP 119/78 Intake Visit Reasons: 28 wk ob/glucose Solution Lead Required: No Is patient in pain?: No Allergies No Known Allergies Allergy (Verified 09/19/24 08:31) Medications ???Medication ???Instructions ???Recorded ???Confirmed ???Type multivitamin no.47-iron fum 27 cap PO 05/02/24 09/19/24 History mg-folate no.1 1 mg-dha 300 mg capsule (PNV-DHA) Last Menstrual Period: 03/07/24 Zika: Zika virus screening: Negative : No Have you fallen in the past year?: No PFSH PFSH Family History Father Heart disease, Onset Age: 51 Open heart surgery Sister Seizures, Onset Age: 18 2 seizures- unknown cause Social History adopted: No household members: spouse current occupational status: employed current occupation: [employer] current occupational exposures/hazards: No pets and animals: Yes (Avoid litterbox) pets and animals: cat(s) and dog(s) history of recent travel: Yes ( - February) out of state: Yes out of country: No sexually active: Yes Smoking Status: Never smoker alcohol intake: current alcohol intake frequency: a few times a week details: Not while . substance use type: does not use well-balanced diet: daily or most days caffeine: No eating out: rarely or never during the past year weight has: remained stable what type of physical activity do you participate in: walking and aerobics frequency: 1-2 times per week duration: 15-30 minutes/day vernon/confucianist: Mandaen seatbelt use: always do you feel safe at home: Yes additional social history: Tenzin- [employer] History 1 Elective abortions Hx Para 0 Spontaneous abortions Hx # Term Pregnancies Ectopic pregnancies Hx # Pregnancies Multiple births # of living children HPI 28 wk ob/glucose Details: SEAN MATOS is a 23 year old who presents for routine OB visit. OB Visit FLORIDALMA Calculator Estimated Delivery Date Method Current WG Current Estimate 12/12/24 LMP (Certain) 28w 0d Other Estimates 12/09/24 Ultrasound #1 28w 3d Expected Delivery Route/Plan Labor Preferences- CB/BF classes: yes labor support person: Tenzin, potentially having a auto suspension and steering mechanic labor intervention preferences: [] pain management options preferred: [] cut cord/dad catch: [] : yes PP control planned: [] discussed possible routes of delivery and associated risks: [] special requests: [] Specific Issue/Plans Covid status: [] Flu vaccine: [] Tdap vaccine: [] Rhogam: obtained 09/19/2024 [facility] form signed: done Problem list reviewed and updated with the most current plan of care details and appropriate orders placed. Relevant counseling for the gestational age provided. Continue routine care and follow up unless otherwise noted in visit notes/problem list details Initial Weight: 135 lb Date -???-???-???-???-??? -???-???-???-???-??? -???-???- EGA Weight BP Urine Prot -???-???-???-???-??? -???-???-???-???-??? -???-???- Glucose FHR FuHt Pres Dilation -???-???-???-???-??? -???-???-???-???-??? -???-???- Effaced St Visit Note 05/08/24 -???-???-???-???-??? -???-???-???-???-??? -???-???- 8w 6d 135 lb (+0 oz) 133/80 -???-???-???-???-??? -???-???-???-???-??? -???-???- 176 -???-???-???-???-??? -???-???-???-???-??? -???-???- KW- CRL cons with dates. declines NIPT at this time. 06/11/24 -???-???-???-???-??? -???-???-???-???-??? -???-???- 13w 5d 133 lb 6 oz (-1 lb 10 oz) 129/83 Negative -???-???-???-???-??? -???-???-???-???-??? -???-???- Negative 155 -???-??? (more content not included)... Normal [facility] Platelet countOrdered By: Ana Hall on 09-19-2024 Platelets (Bld) [#/Vol] 133 10*3/uL Low 150-450 [facility] RBC Auto (Bld) [#/Vol]Ordere d By: Hilda Hall on 09-19-2024 RBC (Bld) [#/Vol] 3.67 10*6/uL Low 4.2-5.4 [facility] Syphilis Antibodieson 2024 Syphilis Abs Non-Reactive Normal Nonreactive [facility] Comment on above: Performed By: #### L 3890.6005, L3890.6300, L3890.6100, L100.0100, BTS, L509.4005, L509.8000 #### [facility] [address] [place], [place], [id number] Type AND Screenon 09-19-2024 Ab SCREEN GEL Negative Normal [facility] Comment on above: Order Comment: PN Performed By: #### L 3890.6005, L3890.6300, L3890.6100, L100.0100, BTS, L509.4005, L509.8000 #### [facility] [address] [place], [address] ABO and Rh group Nom (Bld) Blood group O Rh(D) negative Normal [facility] Comment on above: Order Comment: PN Performed By: #### L 3890.6005, L3890.6300, L3890.6100, L100.0100, BTS, L509.4005, L509.8000 #### [facility] [address] [place], [address] White blood cell (WBC) count Ordered By: Hilda Hall on 09-19-2024 WBC (Bld) [#/Vol] 10.4 10*3/uL 4.4-11.0 [facility] - Chemistry and C hemistry - challengeOrdered By: Hilda Hall on 09-05-2024 Glucose Ql (U) Negative [facility] - UrinalysisOrder ed By: Hilda Hall on 09-05-2024 Protein Ql (U) Negative [facility] Office Visit Reporton 09-05-2024 [facility] [facility] [address], [address] [place] [address] OFFICE VISIT Date of Service: 09/05/24 MR#: [id number] Acct: [id number] Name: SEAN MATOS Rep #: [id number] : 2000 Provider: CRISS fox Age/Sex: 23/F [place] [facility] [place]: Signed Intake Vital Signs 08/08/24 11:03 09/05/24 15:14 09/05/24 15:19 Height 5 ft 7 in 5 ft 7 in 5 ft 7 in Weight: 136 lb 4 oz BMI 21.3 BP 131/81 H Intake Visit Reasons: 26 wk ob Solution Lead Required: No Is patient in pain?: No Allergies No Known Allergies Allergy (Verified 09/05/24 15:14) Medications ???Medication ???Instructions ???Recorded ???Confirmed ???Type multivitamin no.47-iron fum 27 cap PO 05/02/24 09/05/24 History mg-folate no.1 1 mg-dha 300 mg capsule (PNV-DHA) Last Menstrual Period: 03/07/24 : No PFSH PFSH Family History Father Heart disease, Onset Age: 51 Open heart surgery Sister Seizures, Onset Age: 18 2 seizures- unknown cause Social History adopted: No household members: spouse current occupational status: employed current occupation: [employer] current occupational exposures/hazards: No pets and animals: Yes (Avoid litterbox) pets and animals: cat(s) and dog(s) history of recent travel: Yes (February) out of state: Yes out of country: No sexually active: Yes Smoking Status: Never smoker alcohol intake: current alcohol intake frequency: a few times a week details: Not while . substance use type: does not use well-balanced diet: daily or most days caffeine: No eating out: rarely or never during the past year weight has: remained stable what type of physical activity do you participate in: walking and aerobics frequency: 1-2 times per week duration: 15-30 minutes/day vernon/confucianist: Mandaen seatbelt use: always do you feel safe at home: Yes additional social history: [employer]in- [employer] History 1 Elective abortions Hx Para 0 Spontaneous abortions Hx # Term Pregnancies Ectopic pregnancies Hx # Pregnancies Multiple births # of living children HPI 26 wk ob Details: SEAN MATOS is a 23 year old who presents for routine OB visit. OB Visit FLORIDALMA Calculator Estimated Delivery Date Method Current WG Current Estimate 12/12/24 LMP (Certain) 26w 0d Other Estimates 12/09/24 Ultrasound #1 26w 3d Expected Delivery Route/Plan Labor Preferences- CB/BF classes: [] labor support person: [] labor intervention preferences: [] pain management options preferred: [] cut cord/dad catch: [] : [] PP control planned: [] discussed possible routes of delivery and associated risks: [] special requests: [] Specific Issue/Plans Covid status: [] Flu vaccine: [] Tdap vaccine: [] Rhogam: [] LARC form signed: [] Problem list reviewed and updated with the most current plan of care details and appropriate orders placed. Relevant counseling for the gestational age provided. Continue routine care and follow up unless otherwise noted in visit notes/problem list details Initial Weight: 135 lb Date -???-???-???-???-??? -???-???-???-???-??? -???-???- EGA Weight BP Urine Prot -???-???-???-???-??? -???-???-???-???-??? -???-???- Glucose FHR FuHt Pres Dilation -???-???-???-???-??? -???-???-???-???-??? -???-???- Effaced St Visit Note 05/08/24 -???-???-???-???-??? -???-???-???-???-??? -???-???- 8w 6d 135 lb (+0 oz) 133/80 -???-???-???-???-??? -???-???-???-???-??? -???-???- 176 -???-???-???-???-??? -???-???-???-???-??? -???-???- KW- CRL cons with dates. declines NIPT at this time. 06/11/24 -???-???-???-???-??? -???-???-???-???-??? -???-???- 13w 5d 133 lb 6 oz (-1 lb 10 oz) 129/83 Negative -???-???-???-???-??? -???-???-???-???-??? -???-???- Negative 155 -???-???-???-???-??? -???-???-???-???-??? -???-???- JV- CRL cons istent with dates still. No complaints today. anatomy scan ordered. 07/09/24 -???-???-???-???-??? -???-???-???-???-??? -???-???- 17w 5d 138 lb 4 oz (+3 lb 4 oz) 116/78 Negative -???-???-???-???-??? -???-???-???-???-??? -???-???- Negative 151 -???-???-???-???-??? -???-???-???-???-??? -???-???- MH-No VB. Fe eling movement. US anatomy next week 08/08/24 -???-???-???-???-??? -???-???-???-???-??? -???-???- 22w 0d 141 lb (+6 lb) 110/70 Negative -???-???-???-???-??? -???-???-???-???-??? -???-???- Negative 140 22 -???-???-???-???-??? -???-???-???-???-??? -???-???- SM- no vb lo f good fm no reuglar ctx 09/05/24 -???-???-???-???-??? -???-???-???-???-??? -???-???- 26w 0d 136 lb 4 oz (+1 lb 4 oz) 131/81 Negative -???-???-???-???-??? -???-???-???-? (more content not included)... Normal [facility] - Chemistry and C hemistry - challengeOrdered By: Zulay Ruby on 08-08-2024 Glucose Ql (U) Negative [facility] - UrinalysisOrder ed By: Zulay Ruby on 08-08-2024 Protein Ql (U) Negative [facility] Office Visit Reporton 08-08-2024 [facility] Office Visit Report [facility] [address], [address] [place] [address] OFFICE VISIT Date of Service: 08/08/24 MR#: [id number] Acct: [id number] Name: SEAN MATOS Rep #: [id number] : 2000 Provider: Dr. Zulay lehman MD Age/Sex: 23/F [place] [facility] [place] Status: Signed Intake Vital Signs 07/09/24 08:29 08/08/24 10:59 08/08/24 11:03 Height 5 ft 7 in 5 ft 7 in 5 ft 7 in Weight: 141 lb BMI 22.1 BP 110/70 Intake Visit Reasons: 21 wk ob Solution Lead Required: No Is patient in pain?: No Feel stressed/tense/nervo us/anxious/difficult y sleeping: not at all Allergies No Known Allergies Allergy (Verified 08/08/24 10:59) Medications ???Medication ???Instructions ???Recorded ???Confirmed ???Type multivitamin no.47-iron fum 27 cap PO 05/02/24 08/08/24 History mg-folate no.1 1 mg-dha 300 mg capsule (PNV-DHA) Last Menstrual Period: 03/07/24 Zika: Zika virus screening: Negative : No PFSH PFSH Family History Father Heart disease, Onset Age: 51 Open heart surgery Sister Seizures, Onset Age: 18 2 seizures- unknown cause Social History adopted: No household members: spouse current occupational status: employed current occupation: [employer] current occupational exposures/hazards: No pets and animals: Yes (Avoid litterbox) pets and animals: cat(s) and dog(s) history of recent travel: Yes ( - February) out of state: Yes out of country: No sexually active: Yes Smoking Status: Never smoker alcohol intake: current alcohol intake frequency: a few times a week details: Not while . substance use type: does not use well-balanced diet: daily or most days caffeine: No eating out: rarely or never during the past year weight has: remained stable what type of physical activity do you participate in: walking and aerobics frequency: 1-2 times per week duration: 15-30 minutes/day vernon/confucianist: Mandaen seatbelt use: always do you feel safe at home: Yes additional social history: [employer]enzin- [employer] History 1 Elective abortions Hx Para 0 Spontaneous abortions Hx # Term Pregnancies Ectopic pregnancies Hx # Pregnancies Multiple births # of living children HPI 21 wk ob Details: SEAN MATOS is a 23 year old who presents for routine OB visit. OB Visit FLORIDALMA Calculator Estimated Delivery Date Method Current WG Current Estimate 12/12/24 LMP (Certain) 22w 0d Other Estimates 12/09/24 Ultrasound #1 22w 3d Expected Delivery Route/Plan Labor Preferences- CB/BF classes: [] labor support person: [] labor intervention preferences: [] pain management options preferred: [] cut cord/dad catch: [] : [] PP control planned: [] discussed possible routes of delivery and associated risks: [] special requests: [] Specific Issue/Plans Covid status: [] Flu vaccine: [] Tdap vaccine: [] Rhogam: [] LARC form signed: [] Problem list reviewed and updated with the most current plan of care details and appropriate orders placed. Relevant counseling for the gestational age provided. Continue routine care and follow up unless otherwise noted in visit notes/problem list details Initial Weight: 135 lb Date -???-???-???-???-??? -???-???-???-???-??? -???-???- EGA Weight BP Urine Prot -???-???-???-???-??? -???-???-???-???-??? -???-???- Glucose FHR FuHt Pres Dilation -???-???-???-???-??? -???-???-???-???-??? -???-???- Effaced St Visit Note 05/08/24 -???-???-???-???-??? -???-???-???-???-??? -???-???- 8w 6d 135 lb (+0 oz) 133/80 -???-???-???-???-??? -???-???-???-???-??? -???-???- 176 -???-???-???-???-??? -???-???-???-???-??? -???-???- KW- CRL cons with dates. declines NIPT at this time. 06/11/24 -???-???-???-???-??? -???-???-???-???-??? -???-???- 13w 5d 133 lb 6 oz (-1 lb 10 oz) 129/83 Negative -???-???-???-???-??? -???-???-???-???-??? -???-???- Negative 155 -???-???-???-???-??? -???-???-???-???-??? -???-???- JV- CRL cons istent with dates still. No complaints today. anatomy scan ordered. 07/09/24 -???-???-???-???-??? -???-???-???-???-??? -???-???- 17w 5d 138 lb 4 oz (+3 lb 4 oz) 116/78 Negative -???-???-???-???-??? -???-???-???-???-??? -???-???- Negative 151 -???-???-???-???-??? -???-???-???-???-??? -???-???- MH-No VB. Fe eling movement. US anatomy next week 08/08/24 -???-???-???-???-??? -???-???-???-???-??? -???-???- 22w 0d 141 lb (+6 lb) 110/70 Negative -???-???-???-???-??? -???-???-???-???-??? -???-???- Negative 140 22 -???-???-???-???-??? -???-???-???-???-??? -???-???- SM- no vb lo f good fm no reuglar ctx ACOG First Trimester First T (more content not included)... Normal [facility] OB Anatomy w/ Transvaginalon 07-28-2024 OB Anatomy w/ Transvaginal [facility] [address] [place] [address] OB Anatomy w/ Transvaginal MR#: [id number] Acct: [id number] Name: SEAN MATOS Rep #: [id number] : 2000 F 23 From: oRn Madsen MD PCP: Care Physician,No Primary Status: [facility] Study: OB Anatomy w/ Transvaginal Date of Exam: 07/28 Exam# [id number] Ordering Dr: Faith Moreland DO PROCEDURE: OB ANATOMY W/ TRANSVAGINAL REASON FOR EXAM: Cervical and/anatomy COMPARISON: None. FINDINGS Number: 1 Position: Breech active during the exam Placental Position: Posterior, grade 0, marginal cord insertion 1.8 cm from the edge Placental Abnormalities: None. DIMENSIONS: Biparietal Diameter: 4.95 cm/21 weeks 0 days Head Circumference: 18.94 cm/21 weeks 2 days Abdominal Circumference: 17.16 cm/22 weeks 1 day Femur Length: 3.32 cm/20 weeks 3 days ESTIMATED WEIGHT: 418 g ESTIMATED WEIGHT PERCENTILE (24+ weeks): 89 % ESTIMATED GESTATIONAL AGE: Baseline: 20 weeks 3 days By Ultrasound: 21 weeks 0 days ESTIMATED DATE OF DELIVERY: Baseline: 12/12/2024 By Ultrasound: 12/08/2024 BIOPHYSICAL ASSESSMENT: Amniotic Fluid Volume: Subjectively normal. Amniotic Fluid Index: (8-24 cm normal range) Cardiac Motion: 138 (average) Trunk and Limb Motion: Present. MATERNAL ANATOMY: Adnexa: Both maternal ovaries are visualized and unremarkable. Cervical Length (if measured): 3.1 cm and closed ANATOMY: Spine: Cervical, thoracic, lumbar and sacrum sub visualized Cerebellum: Visualized. Cisterna Magna: Visualized, 0.42 cm. Lateral Ventricles: Visualized, 0.57 cm Choroid Plexus: Visualized. Face/orbits: Visualized Nose/lip: Visualized Profile: Visualized Heart: Normal four-chamber view, visualized. Stomach: Visualized. Diaphragm: Visualized Abdominal wall: Visualized Kidneys: Visualized. Bladder: Visualized. Cord insertion: Visualized Umbilical Cord: Three vessel cord. Visualized Extremities: Upper and lower visualized US/OB Anatomy w/ Transvaginal IMPRESSION: Single live intrauterine corresponding to 21 weeks 0 days. UNREMARKABLE ANATOMIC SURVEY. Reading Location: [facility] CC: Dr. Faith Moreland, DO; No Primary Care Physician Clerical Clerk: Signed Normal [facility] - Chemistry and C hemistry - challengeOrdered By: Malina Antunez on 07-09-2024 Glucose Ql (U) Negative [facility] - UrinalysisOrder ed By: Malina Antunez on 07-09-2024 Protein Ql (U) Negative [facility] Office Visit Reporton 07-09-2024 [facility] Office Visit Report [facility] [address], [address] [place] [address] OFFICE VISIT Date of Service: 07/09/24 MR#: [id number] Acct: [id number] Name: SEAN MATOS Rep #: [id number] : 2000 Provider: JULIAN campos Age/Sex: 23/F [place] [facility] [place] Status: Signed Intake Vital Signs 06/11/24 08:59 07/09/24 08:29 Height 5 ft 7 in 5 ft 7 in Weight: 138 lb 4 oz BMI 21.6 BP 116/78 Intake Visit Reasons: 17 wk ob Chief Complaint: 17 Week OB Solution Lead Required: No Is patient in pain?: No Allergies No Known Allergies Allergy (Verified 07/09/24 08:28) Medications ???Medication ???Instructions ???Recorded ???Confirmed ???Type multivitamin no.47-iron fum 27 cap PO 05/02/24 07/09/24 History mg-folate no.1 1 mg-dha 300 mg capsule (PNV-DHA) Last Menstrual Period: 03/07/24 Zika: Zika virus screening: Negative : No PFSH PFSH Family History Father Heart disease, Onset Age: 51 Open heart surgery Sister Seizures, Onset Age: 18 2 seizures- unknown cause Social History adopted: No household members: spouse current occupational status: employed current occupation: [employer] current occupational exposures/hazards: No pets and animals: Yes (Avoid litterbox) pets and animals: cat(s) and dog(s) history of recent travel: Yes ( - February) out of state: Yes out of country: No sexually active: Yes Smoking Status: Never smoker alcohol intake: current alcohol intake frequency: a few times a week details: Not while . substance use type: does not use well-balanced diet: daily or most days caffeine: No eating out: rarely or never during the past year weight has: remained stable what type of physical activity do you participate in: walking and aerobics frequency: 1-2 times per week duration: 15-30 minutes/day vernon/confucianist: Mandaen seatbelt use: always do you feel safe at home: Yes additional social history: [employer]enzin- [employer] History 1 Elective abortions Hx Para 0 Spontaneous abortions Hx # Term Pregnancies Ectopic pregnancies Hx # Pregnancies Multiple births # of living children HPI 17 wk ob Details: SEAN KILDUFF is a 23 year old who presents for routine OB visit. OB Visit FLORIDALMA Calculator Estimated Delivery Date Method Current WG Current Estimate 12/12/24 LMP (Certain) 17w 5d Other Estimates 12/09/24 Ultrasound #1 18w 1d Expected Delivery Route/Plan Labor Preferences- CB/BF classes: [] labor support person: [] labor intervention preferences: [] pain management options preferred: [] cut cord/dad catch: [] : [] PP control planned: [] discussed possible routes of delivery and associated risks: [] special requests: [] Specific Issue/Plans Covid status: [] Flu vaccine: [] Tdap vaccine: [] Rhogam: [] LARC form signed: [] Problem list reviewed and updated with the most current plan of care details and appropriate orders placed. Relevant counseling for the gestational age provided. Continue routine care and follow up unless otherwise noted in visit notes/problem list details Initial Weight: 135 lb Date -???-???-???-???-??? -???-???-???-???-??? -???-???- EGA Weight BP Urine Prot -???-???-???-???-??? -???-???-???-???-??? -???-???- Glucose FHR FuHt Pres Dilation -???-???-???-???-??? -???-???-???-???-??? -???-???- Effaced St Visit Note 05/08/24 -???-???-???-???-??? -???-???-???-???-??? -???-???- 8w 6d 135 lb (+0 oz) 133/80 -???-???-???-???-??? -???-???-???-???-??? -???-???- 176 -???-???-???-???-??? -???-???-???-???-??? -???-???- KW- CRL cons with dates. declines NIPT at this time. 06/11/24 -???-???-???-???-??? -???-???-???-???-??? -???-???- 13w 5d 133 lb 6 oz (-1 lb 10 oz) 129/83 Negative -???-???-???-???-??? -???-???-???-???-??? -???-???- Negative 155 -???-???-???-???-??? -???-???-???-???-??? -???-???- JV- CRL cons istent with dates still. No complaints today. anatomy scan ordered. 07/09/24 -???-???-???-???-??? -???-???-???-???-??? -???-???- 17w 5d 138 lb 4 oz (+3 lb 4 oz) 116/78 Negative -???-???-???-???-??? -???-???-???-???-??? -???-???- Negative 151 -???-???-???-???-??? -???-???-???-???-??? -???-???- -No ROMY. Kamille jacques. US anatomy next week ACOG First Trimester First Trimester: Discussed Second Trimester Second Trimester: Signs and Symptoms of Labor, Selecting a care provider, Reproductive Life Planning Contreception, Care Planning, Depression/Anxiety and Intimate Partner Violence; Discussed Tobacco Cessation Third Trimester Third Trimester: Pain M (more content not included)... Normal [facility] - Chemistry and C hemistry - challengeon 06-11-2024 Glucose Ql (U) Negative [facility] - Urinalysison Protein Ql (U) Negative [facility] Office Visit Reporton 06-11-2024 Mar[facility] Office Visit Report [facility] [address], [address] [place] [address] OFFICE VISIT Date of Service: 06/11/24 MR#: [id number] Acct: [id number] Name: SEAN MATOS Rep #: [id number] : 2000 Provider: Dr. Faith Wood DO Age/Sex: 23/F [place] [facility] [place] Status: Signed Intake Vital Signs 06/11/24 08:59 Height 5 ft 7 in Weight: 133 lb 6 oz BMI 20.9 BP 129/83 H Intake Visit Reasons: 13wk OB Solution Lead Required: No Is patient in pain?: No Allergies No Known Allergies Allergy (Verified 06/11/24 08:51) Medications ???Medication ???Instructions ???Recorded ???Confirmed ???Type multivitamin no.47-iron fum 27 cap PO 05/02/24 06/11/24 History mg-folate no.1 1 mg-dha 300 mg capsule (PNV-DHA) Last Menstrual Period: 03/07/24 Zika: Zika virus screening: Negative : No PFSH PFSH Family History Father Heart disease, Onset Age: 51 Open heart surgery Sister Seizures, Onset Age: 18 2 seizures- unknown cause Social History adopted: No household members: spouse current occupational status: employed current occupation: [employer] current occupational exposures/hazards: No pets and animals: Yes (Avoid litterbox) pets and animals: cat(s) and dog(s) history of recent travel: Yes ( - February) out of state: Yes out of country: No sexually active: Yes Smoking Status: Never smoker alcohol intake: current alcohol intake frequency: a few times a week details: Not while . substance use type: does not use well-balanced diet: daily or most days caffeine: No eating out: rarely or never during the past year weight has: remained stable what type of physical activity do you participate in: walking and aerobics frequency: 1-2 times per week duration: 15-30 minutes/day vernon/confucianist: Mandaen seatbelt use: always do you feel safe at home: Yes additional social history: [employer]enzin- [employer] History 1 Elective abortions Hx Para 0 Spontaneous abortions Hx # Term Pregnancies Ectopic pregnancies Hx # Pregnancies Multiple births # of living children HPI 13wk OB Details: SEAN MATOS is a 23 year old who presents for routine OB visit. OB Visit FLORIDALMA Calculator Estimated Delivery Date Method Current WG Current Estimate 12/12/24 LMP (Certain) 13w 5d Other Estimates 12/09/24 Ultrasound #1 14w 1d Expected Delivery Route/Plan Labor Preferences- CB/BF classes: [] labor support person: [] labor intervention preferences: [] pain management options preferred: [] cut cord/dad catch: [] : [] PP control planned: [] discussed possible routes of delivery and associated risks: [] special requests: [] Specific Issue/Plans Covid status: [] Flu vaccine: [] Tdap vaccine: [] Rhogam: [] LARC form signed: [] Problem list reviewed and updated with the most current plan of care details and appropriate orders placed. Relevant counseling for the gestational age provided. Continue routine care and follow up unless otherwise noted in visit notes/problem list details Initial Weight: 135 lb Date -???-???-???-???-??? -???-???-???-???-??? -???-???- EGA Weight BP Urine Prot -???-???-???-???-??? -???-???-???-???-??? -???-???- Glucose FHR FuHt Pres Dilation -???-???-???-???-??? -???-???-???-???-??? -???-???- Effaced St Visit Note 05/08/24 -???-???-???-???-??? -???-???-???-???-??? -???-???- 8w 6d 135 lb (+0 oz) 133/80 -???-???-???-???-??? -???-???-???-???-??? -???-???- 176 -???-???-???-???-??? -???-???-???-???-??? -???-???- KW- CRL cons with dates. declines NIPT at this time. 06/11/24 -???-???-???-???-??? -???-???-???-???-??? -???-???- 13w 5d 133 lb 6 oz (-1 lb 10 oz) 129/83 Negative -???-???-???-???-??? -???-???-???-???-??? -???-???- Negative 155 -???-???-???-???-??? -???-???-???-???-??? -???-???- JV- CRL cons istent with dates still. No complaints today. anatomy scan ordered. ACOG First Trimester First Trimester: Discussed Second Trimester Second Trimester: Signs and Symptoms of Labor, Selecting a care provider, Reproductive Life Planning Contreception, Care Planning, Depression/Anxiety and Intimate Partner Violence; Discussed Tobacco Cessation Third Trimester Third Trimester: Pain Management Plans, Labor support person(s), Immediate Larc, Signs and Symptoms of Preeclampsia, Feeding No , Education and Family Medical Leave or Disability Forms Results POC Urinalysis 2 Dip (Clinic) Office Urine Glucose Negative Last Edit by Rosana Escobar on 06/11/24 09:03 O (more content not included)... Normal [facility] PAP I-G w/rfx hrHPV-Aptimaon 05-15-2024 ADEQ Comment Normal . [facility] Comment on above: Order Comment: Reaso n for Exam: Result Comment: Sati sfactory for evaluation. No endocervical component is identified. An endocervical component is not commonly seen in the patient. Performed By: #### L 3890.6005, L3890.6300, L3890.6100, L100.0100, BTS, L509.4005, L509.8000 #### [facility] [address] [place], [place], [id number] COMM . Normal . [facility] Comment on above: Order Comment: Reaso n for Exam: Performed By: #### L 3890.6005, L3890.6300, L3890.6100, L100.0100, BTS, L509.4005, L509.8000 #### [facility] [address] [place], [place], [id number] COMMENT Comment Normal . [facility] Comment on above: Order Comment: Reaso n for Exam: Result Comment: This liquid based ThinPrep(R) pap test was screened with the use of an image guided system. Performed By: #### L 3890.6005, L3890.6300, L3890.6100, L100.0100, BTS, L509.4005, L509.8000 #### [facility] [address] [place], [address] DIAG Comment Normal . [facility] Comment on above: Order Comment: Reaso n for Exam: Result Comment: NEGA TIVE FOR INTRAEPITHELIAL LESION OR MALIGNANCY. Performed By: #### L 3890.6005, L3890.6300, L3890.6100, L100.0100, BTS, L509.4005, L509.8000 #### [facility] [address] [place], [address] HPV RFLX Comment Normal . [facility] Comment on above: Order Comment: Reaso n for Exam: Result Comment: The HPV DNA reflex criteria were not met with this specimen result therefore, no HPV testing was performed. Performed at: [address] [place] [id number] Scroll Machine Operator: Lisandra Crews MD, Phone: [phone] Performed By: #### L 3890.6005, L3890.6300, L3890.6100, L100.0100, BTS, L509.4005, L509.8000 #### [facility] [address] [place], [address] PAPSMR Comment Normal . [facility] Comment on above: Order Comment: Reaso n for Exam: Result Comment: The Pap smear is a screening test designed to aid in the detection of premalignant and malignant conditions of the uterine cervix. It is not a diagnostic procedure and should not be used as the sole means of detecting cervical cancer. Both false-positive and false-negative reports do occur. Performed By: #### L 3890.6005, L3890.6300, L3890.6100, L100.0100, BTS, L509.4005, L509.8000 #### [facility] [address] [place], [address] PERFORM Comment Normal . [facility] Comment on above: Order Comment: Reaso n for Exam: Result Comment: Carmen Castellanos, National Park Ranger (ASCP) Performed By: #### L 3890.6005, L3890.6300, L3890.6100, L100.0100, BTS, L509.4005, L509.8000 #### [facility] [address] [place], [address] Chlamydia/GC SYED aptimaon CHLAMY,NUC ACID Negative Normal Negative [facility] Comment on above: Performed By: #### L 3890.6005, L3890.6300, L3890.6100, L100.0100, BTS, L509.4005, L509.8000 #### [facility] [address] [place], [place], [id number] GC BY NUC ACID Negative Normal Negative [facility] Comment on above: Result Comment: Perf ormed at: =G - [facility] [address] [place], [place] [id number] Scroll Machine Operator: Lisandra Crews MD, Phone: [phone] Performed By: #### L 3890.6005, L3890.6300, L3890.6100, L100.0100, BTS, L509.4005, L509.8000 #### [facility] [address] [place], [place], [id number] Urine Cultureon 05-09-2024 URC Culture exhibits no growth. Normal [facility] Comment on above: Performed By: #### L 3890.6005, L3890.6300, L3890.6100, L100.0100, BTS, L509.4005, L509.8000 #### [facility] [address] [place], [place], [id number] Absolute neutrophil countOrd ered By: Padmini Vasquez on 05-08-2024 Neutrophils (Bld) [#/Vol] 4.8 10*3/uL 2.0-7.7 [facility] Basophil percentageOrdered B y: Padmini Vasquez on 05-08-2024 Basophils/100 WBC (Bld) 0.4 % 0-1 [facility] C. trachomatis rRNA SYED+prob e Ql (Unsp spec)Ordered By: Padmini Vasquez on 05-08-2024 Chlamydia DNA (SYED) Negative Negative [facility] CBC W/Diff, Automatedon 04-27 Absolute Lymph 1.50 X10 3/uL Normal 0.83-4.51 [facility] Comment on above: Performed By: #### L 3890.6005, L3890.6300, L3890.6100, L100.0100, BTS, L509.4005, L509.8000 #### [facility] [address] [place], [address] Absolute Neut 4.8 X10 3/uL Normal 2.0-7.7 [facility] Comment on above: Performed By: #### L 3890.6005, L3890.6300, L3890.6100, L100.0100, BTS, L509.4005, L509.8000 #### [facility] [address] [place], [address] Basophils/100 WBC (Bld) 0.4 % Normal 0-1 [facility] Comment on above: Performed By: #### L 3890.6005, L3890.6300, L3890.6100, L100.0100, BTS, L509.4005, L509.8000 #### [facility] [address] [place], [address] Eosinophils/100 WBC (Bld) 0.4 % Normal 0-5 [facility] Comment on above: Performed By: #### L 3890.6005, L3890.6300, L3890.6100, L100.0100, BTS, L509.4005, L509.8000 #### [facility] [address] [place], [address] Erythrocyte distribution width (RBC) [Ratio] 12.0 % Normal 11.6-14.6 [facility] Comment on above: Performed By: #### L 3890.6005, L3890.6300, L3890.6100, L100.0100, BTS, L509.4005, L509.8000 #### [facility] [address] [place], [address] Hematocrit (Bld) [Volume fraction] 41.7 % Normal 37-47 [facility] Comment on above: Performed By: #### L 3890.6005, L3890.6300, L3890.6100, L100.0100, BTS, L509.4005, L509.8000 #### [facility] [address] [place], [address] Hemoglobin (Bld) [Mass/Vol] 13.8 g/dL Normal 12.0-15.0 [facility] Comment on above: Performed By: #### L 3890.6005, L3890.6300, L3890.6100, L100.0100, BTS, L509.4005, L509.8000 #### [facility] [address] [place], [address] IG% 0.300 Normal 0.0-0.9 [facility] Comment on above: Result Comment: IG% - Immature Granulocytes (promyelocytes, myelocytes and metamyelocytes) > 1% indicates that a LEFT SHIFT is Present. Performed By: #### L 3890.6005, L3890.6300, L3890.6100, L100.0100, BTS, L509.4005, L509.8000 #### [facility] [address] [place], [address] Lymphocytes/100 WBC (Bld) 22.0 % Normal 19-41 [facility] Comment on above: Performed By: #### L 3890.6005, L3890.6300, L3890.6100, L100.0100, BTS, L509.4005, L509.8000 #### [facility] [address] [place], [address] MCH (RBC) [Entitic mass] 29.1 pg Normal 27.0-32.0 [facility] Comment on above: Performed By: #### L 3890.6005, L3890.6300, L3890.6100, L100.0100, BTS, L509.4005, L509.8000 #### [facility] [address] [place], [address] MCHC (RBC) [Mass/Vol] 33.1 g/dL Normal 32-36 [facility] Comment on above: Performed By: #### L 3890.6005, L3890.6300, L3890.6100, L100.0100, BTS, L509.4005, L509.8000 #### [facility] [address] [place], [address] MCV (RBC) [Entitic vol] 87.8 fL Normal 81-99 [facility] Comment on above: Performed By: #### L 3890.6005, L3890.6300, L3890.6100, L100.0100, BTS, L509.4005, L509.8000 #### [facility] [address] [place], [address] Monocytes/100 WBC (Bld) 6.5 % Normal 0-10 [facility] Comment on above: Performed By: #### L 3890.6005, L3890.6300, L3890.6100, L100.0100, BTS, L509.4005, L509.8000 #### [facility] [address] [place], [address] Neutrophils/100 WBC (Bld) 70.4 % High 47-70 [facility] Comment on above: Performed By: #### L 3890.6005, L3890.6300, L3890.6100, L100.0100, BTS, L509.4005, L509.8000 #### [facility] [address] [place], [address] Nucleated RBC (Bld) [#/Vol] 0 10*3/uL Normal 0-5 [facility] Comment on above: Performed By: #### L 3890.6005, L3890.6300, L3890.6100, L100.0100, BTS, L509.4005, L509.8000 #### [facility] [address] [place], [address] Platelet mean volume (Bld) [Entitic vol] 8.8 fL Normal 6.2-12.0 [facility] Comment on above: Performed By: #### L 3890.6005, L3890.6300, L3890.6100, L100.0100, BTS, L509.4005, L509.8000 #### [facility] [address] [place], [address] Platelets (Bld) [#/Vol] 150 10*3/uL Normal 150-450 [facility] Comment on above: Performed By: #### L 3890.6005, L3890.6300, L3890.6100, L100.0100, BTS, L509.4005, L509.8000 #### [facility] [address] [place], [address] RBC (Bld) [#/Vol] 4.75 10*6/uL Normal 4.2-5.4 [facility] Comment on above: Performed By: #### L 3890.6005, L3890.6300, L3890.6100, L100.0100, BTS, L509.4005, L509.8000 #### [facility] [address] [place], [address] RDW SD 38.9 fl Normal 35.1-43.9 [facility] Comment on above: Performed By: #### L 3890.6005, L3890.6300, L3890.6100, L100.0100, BTS, L509.4005, L509.8000 #### [facility] [address] [place], [address] WBC (Bld) [#/Vol] 6.8 10*3/uL Normal 4.4-11.0 [facility] Comment on above: Performed By: #### L 3890.6005, L3890.6300, L3890.6100, L100.0100, BTS, L509.4005, L509.8000 #### [facility] [address] [place], [address] Hand Ornament Maker Cyto stain Nom (C vx/Vag) [ID]Ordered By: Padmini Vasquez on 05-08-2024 Pap Smear Performed By Comment . [facility] Comment on above: Joslyn Castellanos, Cytot echnologist (ASCP) Cytology report Cyto stain D oc (Cvx/Vag)Ordered By: Padmini Vasquez on 05-08-2024 Thin Prep Pap Smear Comment . [facility] Comment on above: The Pap smear is a s creening test designed to aid in thedetection of premalignant and malignant conditions of theuterine cervix. It is not a diagnostic procedure andshould not be used as the sole means of detecting cervicalcancer. Both false-positive and false-negative reports dooccur. Eosinophil percentageOrdered By: Padmini Vasquez on 05-08-2024 Eosinophils/100 WBC (Bld) 0.4 % 0-5 [facility] Erythrocyte distribution wid th ratioOrdered By: Padmini Vasquez on 05-08-2024 Erythrocyte distribution width (RBC) [Ratio] 12.0 % 11.6-14.6 [facility] Erythrocyte distribution wid th standard deviationOrdered By: Padmini Vasquez on 05-08-2024 Erythrocyte distribution width (RBC) [Entitic vol] 38.9 fL 35.1-43.9 [facility] HIV - WCHon 05-08-2024 HIV Non-Reactive Normal Nonreactive [facility] Comment on above: Order Comment: Reaso n for Exam: Performed By: #### L 3890.6005, L3890.6300, L3890.6100, L100.0100, BTS, L509.4005, L509.8000 #### [facility] [address] [place], [address] HIV 1+2 Ab+HIV1 p24 Ag IA Ql Ordered By: Padmini Vasquez on 05-08-2024 HIV (1&2) Antibody Non-Reactive Nonreactive [facility] Hematocrit Auto (Bld) [Volum e fraction]Ordered By: Padmini Vasquez on 05-08-2024 Hematocrit (Bld) [Volume fraction] 41.7 % 37-47 [facility] Hemoglobin measurementOrdere d By: Padmini Vasquez on 05-08-2024 Hemoglobin (Bld) [Mass/Vol] 13.8 g/dL 12.0-15.0 [facility] Hepatitis B Surface Antigeno n 05-08-2024 HEP B Surf Ag Non-Reactive Normal Nonreactive [facility] Comment on above: Order Comment: Reaso n for Exam: Performed By: #### L 3890.6005, L3890.6300, L3890.6100, L100.0100, BTS, L509.4005, L509.8000 #### [facility] [address] [facility] [place], [place], [id number] Hepatitis B surface antigen detectionOrdered By: Padmini Vasquez on 05-08-2024 Hepatitis B Surface Antigen Non-Reactive Nonreactive [facility] Hepatitis C Antibodyon 05-08 Hepatitis C AB [facility]-Reactive [facility] Comment on above: Order Comment: Reaso n for Exam: Result Comment: Non Reactive: < 0.8 Equivocal: >/= 0.8 to < 1.0 Reactive: >/= 1.0 The [facility] requires that a reactive/equivocal HCV antibody result be sent out for confirmation. HCV Quant by PCR testing. Performed By: #### L 3890.6005, L3890.6300, L3890.6100, L100.0100, BTS, L509.4005, L509.8000 #### [facility] [address] [place], [address] Hepatitis C virus antibody a ssayOrdered By: Padmini Vasquez on 05-08-2024 Hepatitis C Antibody Non-Reactive Nonreactive [facility] Comment on above: Non Reactive: < 0.8 Equivocal: >/= 0.8 to < 1.0 Reactive: >/= 1.0The CDC requires that a reactive/equivocal HCV antibody result be sent out for confirmation. HCV Quant by PCR testing. Image-guided ThinPrep PapOrd ered By: Padmini Vasquez on 05-08-2024 Pap Smear Note Comment . [facility] Comment on above: This liquid based Th inPrep(R) pap test was screened withthe use of an image guided system. Image-guided liquid-based Pa pOrdered By: Padmini Vasquez on 05-08-2024 Pap Smear Diagnosis Comment . [facility] Comment on above: NEGATIVE FOR INTRAEP ITHELIAL LESION OR MALIGNANCY. Image-guided liquid-based ce rvical Pap w high-risk HPV+reflex to HPV 16+18Ordered By: Padmini Vasquez on 05-08-2024 Human Papillomavirus Screen Comment . [facility] Comment on above: The HPV DNA reflex c riteria were not met with this specimenresult therefore, no HPV testing was performed.Performed at: [facility] - [facility] [id number] Director: Lisandra Crews MD, Phone: [phone] Immature granulocytes/100 WB C Auto (Bld)Ordered By: Padmini Vasquez on 05-08-2024 Immature granulocytes/100 WBC (Bld) 0.300 % 0.0-0.9 [facility] Comment on above: IG% - Immature Granu locytes (promyelocytes, myelocytes and metamyelocytes) > 1% indicates that a LEFT SHIFT is Present. L509.8000on 05-08-2024 Syphilis Abs Non-Reactive Normal [facility] Comment on above: Order Comment: Reaso n for Exam: Performed By: #### L 3890.6005, L3890.6300, L3890.6100, L100.0100, BTS, L509.4005, L509.8000 #### [facility] [address] [place], [place], [id number] Lymphocytes Auto (Unsp spec) [#/Vol]Ordered By: Padmini Vasquez on 05-08-2024 Lymphocytes (Bld) [#/Vol] 1.50 10*3/uL 0.83-4.51 [facility] Lymphocytes/100 WBC Auto (Un sp spec)Ordered By: Padmini Vasquez on 05-08-2024 Lymphocytes/100 WBC (Bld) 22.0 % 19-41 [facility] MCV (mean corpuscular volume ) determinationOrdered By: Padmini Vasquez on 05-08-2024 MCV (RBC) [Entitic vol] 87.8 fL 81-99 [facility] Mean corpuscular hemoglobin (MCH) determinationOrdered By: Padmini Vasquez on 05-08-2024 MCH (RBC) [Entitic mass] 29.1 pg 27.0-32.0 [facility] Mean corpuscular hemoglobin concentration (MCHC) determinationOrdered By: Padmini Vasquez on 05-08-2024 MCHC (RBC) [Mass/Vol] 33.1 g/dL 32-36 [facility] Mean platelet volume determi nationOrdered By: Padmini Vasquez on 05-08-2024 Platelet mean volume (Bld) [Entitic vol] 8.8 fL 6.2-12.0 [facility] Monocyte percentageOrdered B y: Padmini Vasquez on 05-08-2024 Monocytes/100 WBC (Bld) 6.5 % 0-10 [facility] Neisseria gonorrhoeae nuclei c acid detection by amplified probe techniqueOrdered By: Padmini Vasquez on 05-08-2024 N. gonorrhoeae DNA SYED+probe Ql (Unsp spec) Negative Negative [facility] Comment on above: Performed at: =[address] [id number] Director: Lisandra Crews MD, Phone: [phone] Neutrophil percentageOrdered By: Padmini Vasquez on 05-08-2024 Neutrophils/100 WBC (Bld) 70.4 % High 47-70 [facility] Nucleated red blood cell per centageOrdered By: Padmini Vasquez on 05-08-2024 Nucleated RBC/100 WBC (Bld) [Ratio] 0 % 0-5 [facility] [employer] Office Visit Reporton 05-08-2024 [employer] Office Visit Report [facility], [address] [place] [address] OFFICE VISIT Date of Service: 05/08/24 MR#: [id number] Acct: [id number] Name: SEAN MATOS Rep #: [id number] : 2000 Provider: CRISS Awad [facility] Age/Sex: 23/F [place] [facility] [place] Status: Signed Intake Vital Signs 05/08/24 11:31 05/08/24 11:39 Weight: 135 lb BP 133/80 H Intake Visit Reasons: NEW OB Solution Lead Required: No Is patient in pain?: No Allergies No Known Allergies Allergy (Unverified 05/08/24 11:08) Medications ???Medication ???Instructions ???Recorded ???Confirmed ???Type multivitamin no.47-iron fum 27 cap PO 05/02/24 05/08/24 History mg-folate no.1 1 mg-dha 300 mg capsule (PNV-DHA) Last Menstrual Period: 03/07/24 Zika: Zika virus screening: Negative : Yes Have you fallen in the past year?: No PFSH PFSH Family History Father Heart disease, Onset Age: 51 Open heart surgery Sister Seizures, Onset Age: 18 2 seizures- unknown cause Social History adopted: No household members: spouse service: No current occupational status: employed current occupation: [employer] current occupational exposures/hazards: No pets and animals: Yes (Avoid litterbox) pets and animals: cat(s) and dog(s) history of recent travel: Yes (February) out of state: Yes out of country: No sexually active: Yes Smoking Status: Never smoker alcohol intake: current alcohol intake frequency: a few times a week details: Not while . substance use type: does not use well-balanced diet: daily or most days caffeine: No eating out: rarely or never during the past year weight has: remained stable what type of physical activity do you participate in: walking and aerobics frequency: 1-2 times per week duration: 15-30 minutes/day vernon/confucianist: Mandaen seatbelt use: always do you feel safe at home: Yes additional social history: [employer] History 1 Elective abortions Hx Para 0 Spontaneous abortions Hx # Term Pregnancies Ectopic pregnancies Hx # Pregnancies Multiple births # of living children HPI NEW OB Details: SEAN MATOS is a 23 year old who presents for New OB visit. OB Visit FLORIDALMA Calculator Estimated Delivery Date Method Current WG Current Estimate 12/12/24 LMP (Certain) 8w 6d Other Estimates 12/09/24 Ultrasound #1 9w 2d Comments: HIV: Urine Culture: Sequential Screen: NIPT Screen: Estimated Due Date: 12/12/24 Expected Delivery Route/Plan Labor Preferences- CB/BF classes: [] labor support person: [] labor intervention preferences: [] pain management options preferred: [] cut cord/dad catch: [] : [] PP control planned: [] discussed possible routes of delivery and associated risks: [] special requests: [] Specific Issue/Plans Covid status: [] Flu vaccine: [] Tdap vaccine: [] Rhogam: [] LARC form signed: [] Problem list reviewed and updated with the most current plan of care details and appropriate orders placed. Relevant counseling for the gestational age provided. Continue routine care and follow up unless otherwise noted in visit notes/problem list details Initial Weight: 135 lb Date -???-???-???-???-??? -???-???-???-???-??? -???-???- EGA Weight BP Urine Prot -???-???-???-???-??? -???-???-???-???-??? -???-???- Glucose FHR FuHt Pres Dilation -???-???-???-???-??? -???-???-???-???-??? -???-???- Effaced St Visit Note 05/08/24 -???-???-???-???-??? -???-???-???-???-??? -???-???- 8w 6d 135 lb (+0 oz) 133/80 -???-???-???-???-??? -???-???-???-???-??? -???-???- 176 -???-???-???-???-??? -???-???-???-???-??? -???-???- KW- CRL cons with dates. declines NIPT at this time. Menstrual History Last Menstrual Period: 03/07/24 Reported LMP: definite Normal amount/duration: Yes Frequency in days: 27-31 On hormonal BC at conception: No hCG+: 04/02/24 Antepartum Record Genetic Screening: Congenital Heart Defect: Other, Neural Tube Defect: Other, Hemoglobinopathy Or Carrier: Other, Cystic Fibrosis: Other, Chromosome Abnormality: Other, Alphonse-Sachs: Other, Hemophilia: Other, Intellectual Disability/Autism: Other, Recurrent Loss/Stillbirth: Other, Other Structural Defect: Other, Other Genetic Disease: Other and Maternal Metabolic Disorder: Other Infection History: Live with someone with TB or Exposed to TB: No, Patient or Partner has history of Genital Herpes: No, Rash or Viral illness since last mentrual period: No, Prior GBS-Infected child: No, History of STD: No, HIV Infection: No, History of Hepatitis: No, Recent travel outside of [place]: No, (more content not included)... Normal [facility] Platelet countOrdered By: Osmany Vasquez on 05-08-2024 Platelets (Bld) [#/Vol] 150 10*3/uL 150-450 [facility] RBC Auto (Bld) [#/Vol]Ordere d By: Padmini Vasquez on 05-08-2024 RBC (Bld) [#/Vol] 4.75 10*6/uL 4.2-5.4 [facility] Rubella IgGon 05-08-2024 Rubella IgG Reactive Normal Nonreactive [facility] Comment on above: Order Comment: Reaso n for Exam: Result Comment: Anti body Results Interpretation of Immune Status Non Reactive Presumed Non-Immune Equivocal Equivocal Reactive Presumed Immune Performed By: #### L 3890.6005, L3890.6300, L3890.6100, L100.0100, BTS, L509.4005, L509.8000 #### [facility] [address] [place], [address] Rubella immune status IgGOrd ered By: Padmini Vasquez on 05-08-2024 Rubella IgG Antibody Reactive Nonreactive [facility] Comment on above: Antibody Results Int erpretation of Immune Status Non Reactive Presumed Non-Immune Equivocal Equivocal Reactive Presumed Immune Service comment (Unsp spec) [Interp]Ordered By: Padmini Vasquez on 05-08-2024 Pap Smear Comment (3) . . [facility] Treponema sp Ab Ql (S)Ordere d By: Padmini Vasquez on 05-08-2024 Syphilis Total Antibody Non-Reactive [facility] Type AND Screenon 05-08-2024 Ab SCREEN GEL Negative Normal [facility] Comment on above: Order Comment: PN Performed By: #### L 3890.6005, L3890.6300, L3890.6100, L100.0100, BTS, L509.4005, L509.8000 #### [facility] [address] [place], [address] Urine cultureOrdered By: Peter Vasquez on 05-08-2024 Bacteria identified Cx Nom (U) Culture exhibits no growth. [facility] White blood cell (WBC) count Ordered By: Padmini Vasquez on 05-08-2024 WBC (Bld) [#/Vol] 6.8 10*3/uL 4.4-11.0 [facility] Vital Signs Date Time Vital Sign Value Performing Clinician Nicholei omega 11-27-2024 14:49-0400 Body height 172.72 cm No Primary Care Physician [facility] 11-27-2024 14:46-0400 Body mass index (BMI) [Ratio] 23.8 kg/m2 No Primary Care Physician [facility] 11-27-2024 14:46-0400 Body weight 71.21 kg No Primary Care Physician [facility] 11-27-2024 14:46-0400 Diastolic blood pressure 76 mm[Hg] No Primary Care Physician [facility] 11-27-2024 14:46-0400 Systolic blood pressure 108 mm[Hg] No Primary Care Physician [facility] 11-21-2024 15:44-0400 Body height 172.72 cm No Primary Care Physician [facility] 11-21-2024 15:44-0400 Body mass index (BMI) [Ratio] 23.8 kg/m2 No Primary Care Physician [facility] 11-21-2024 15:44-0400 Body weight 71.21 kg No Primary Care Physician [facility] 11-21-2024 15:39-0400 Body temperature 98.6 [degF] No Primary Care Physician [facility] 11-21-2024 15:39-0400 Diastolic blood pressure 71 mm[Hg] No Primary Care Physician [facility] 11-21-2024 15:39-0400 Heart rate 105 /min No Primary Care Physician [facility] 11-21-2024 15:39-0400 Respiratory rate 16 /min No Primary Care Physician [facility] 11-21-2024 15:39-0400 Systolic blood pressure 124 mm[Hg] No Primary Care Physician [facility] 11-20-2024 15:37-0400 Body height 170.18 cm No Primary Care Physician [facility] 11-20-2024 15:37-0400 Body mass index (BMI) [Ratio] 24.5 kg/m2 No Primary Care Physician [facility] 11-20-2024 15:37-0400 Body weight 70.93 kg No Primary Care Physician [facility] 11-20-2024 15:37-0400 Diastolic blood pressure 79 mm[Hg] No Primary Care Physician [facility] 11-20-2024 15:37-0400 Systolic blood pressure 125 mm[Hg] No Primary Care Physician [facility] 2024 08:55-0400 Body height 170.18 cm No Primary Care Physician [facility] 2024 08:50-0400 Body mass index (BMI) [Ratio] 24.3 kg/m2 No Primary Care Physician [facility] 2024 08:50-0400 Body weight 70.53 kg No Primary Care Physician [facility] 2024 08:50-0400 Diastolic blood pressure 82 mm[Hg] No Primary Care Physician [facility] 2024 08:50-0400 Systolic blood pressure 123 mm[Hg] No Primary Care Physician [facility] 10-29-2024 08:30-0400 Body height 170.18 cm No Primary Care Physician [facility] 10-29-2024 08:30-0400 Body mass index (BMI) [Ratio] 23.7 kg/m2 No Primary Care Physician [facility] 10-29-2024 08:30-0400 Body weight 68.66 kg No Primary Care Physician [facility] 10-29-2024 08:30-0400 Diastolic blood pressure 80 mm[Hg] No Primary Care Physician [facility] 10-29-2024 08:30-0400 Systolic blood pressure 124 mm[Hg] No Primary Care Physician [facility] 10-17-2024 10:03-0400 Body mass index (BMI) [Ratio] 23.7 kg/m2 No Primary Care Physician [facility] 10-17-2024 10:03-0400 Body weight 68.71 kg No Primary Care Physician [facility] 10-17-2024 10:03-0400 Diastolic blood pressure 77 mm[Hg] No Primary Care Physician [facility] 10-17-2024 10:03-0400 Systolic blood pressure 128 mm[Hg] No Primary Care Physician [facility] 10-03-2024 10:16-0400 Body mass index (BMI) [Ratio] 23.8 kg/m2 No Primary Care Physician [facility] 10-03-2024 10:16-0400 Body weight 69.11 kg No Primary Care Physician [facility] 10-03-2024 10:16-0400 Diastolic blood pressure 80 mm[Hg] No Primary Care Physician [facility] 10-03-2024 10:16-0400 Systolic blood pressure 131 mm[Hg] No Primary Care Physician [facility] 09-19-2024 08:31-0400 Body mass index (BMI) [Ratio] 23.2 kg/m2 No Primary Care Physician [facility] 09-19-2024 08:31-0400 Body weight 67.3 kg No Primary Care Physician [facility] 09-19-2024 08:31-0400 Diastolic blood pressure 78 mm[Hg] No Primary Care Physician [facility] 09-19-2024 08:31-0400 Systolic blood pressure 119 mm[Hg] No Primary Care Physician [facility] 09-05-2024 15:14-0400 Body mass index (BMI) [Ratio] 21.3 kg/m2 No Primary Care Physician [facility] 09-05-2024 15:14-0400 Body weight 61.8 kg No Primary Care Physician [facility] 09-05-2024 15:14-0400 Diastolic blood pressure 81 mm[Hg] No Primary Care Physician [facility] 09-05-2024 15:14-0400 Systolic blood pressure 131 mm[Hg] No Primary Care Physician [facility] 08-08-2024 11:03-0400 Body height 170.18 cm Padmini OAKESM Work Phone: [facility] 08-08-2024 10:59-0400 Body mass index (BMI) [Ratio] 22.1 kg/m2 Padmini Vasquez CNM Work Phone: [facility] 08-08-2024 10:59-0400 Body weight 63.95 kg Padmini Vasquez CNM Work Phone: [facility] 08-08-2024 10:59-0400 Diastolic blood pressure 70 mm[Hg] Padmini Vasquez CNM Work Phone: [facility] 08-08-2024 10:59-0400 Systolic blood pressure 110 mm[Hg] Padmini Vasquez CNM Work Phone: [facility] 07-09-2024 08:29-0500 Body mass index (BMI) [Ratio] 21.6 kg/m2 Padmini OAKESM Work Phone: [facility] 07-09-2024 08:29-0500 Body weight 62.7 kg Padmini Vasquez CNM Work Phone: [facility] 07-09-2024 08:29-0500 Diastolic blood pressure 78 mm[Hg] Padmini Vasquez CNM Work Phone: [facility] 07-09-2024 08:29-0500 Systolic blood pressure 116 mm[Hg] Padmini OAKESM Work Phone: [facility] 06-11-2024 08:59-0500 Body mass index (BMI) [Ratio] 20.9 kg/m2 Padmini OAKESM Work Phone: [facility] 06-11-2024 08:59-0500 Body weight 60.49 kg Padmini Vasquez CNM Work Phone: [facility] 06-11-2024 08:59-0500 Diastolic blood pressure 83 mm[Hg] Padmini Vasquez CNM Work Phone: [facility] 06-11-2024 08:59-0500 Systolic blood pressure 129 mm[Hg] Padmini Vasquez CNM Work Phone: [facility] 05-08-2024 11:39-0500 Body weight 61.23 kg Padmini Vasquez CNM Work Phone: [facility] 05-08-2024 11:31-0500 Diastolic blood pressure 80 mm[Hg] Padmini Vasquez CNM Work Phone: [facility] 05-08-2024 11:31-0500 Systolic blood pressure 133 mm[Hg] Padmini Vasquez CNM Work Phone: [facility] Encounters Encounter Date Encounter Type Care Provider Facility Start: 12-12-2024 ambulatory No Primary Car e Physician Facility:[facility] Start: 11-27-2024 End: 11-27-[address] Zulay Ruby MD -[facility] Work Phone: Start: 11-27-2024 End: 11-27-2024 ambulatory No [place] Care Phys[place] [place]: 11-21-2024 ambulatory Faith Dias cility:[facility] Start: 11-21-2024 Non-patient / Non-visit Dr. Faith Moreland DO -[facility] Start: 11-21-2024 End: 11-21-2024 ambulatory No Primary Care Physician -[facility] Start: 11-21-2024 End: 11-21-[address] Faith Moreland DO -[facility] Work Phone: Start: 11-20-2024 End: 11-20-[address] Zulay Ruby MD -[facility] Work Phone: Start: 11-20-2024 End: 11-20-2024 ambulatory No Primary Care Physician [facility] Work Phone: Start: 2024 End: 2024 ambulatory No Primary Care Physician [facility] Work Phone: Start: 2024 End: [address] Zulay Ruby MD -[facility] Work Phone: Start: 2024 End: [address] Zulay Ruby MD -[facility] Work Phone: Start: 2024 End: 2024 ambulatory No Primary Care Physician [facility] Work Phone: Start: 2024 End: 2024 ambulatory No Primary Care Physician Facility:[facility] Start: 10-29-2024 End: 10-29-2024 Patient encounter procedure Malina JORDAN -[facility] Work Phone: Start: 10-29-2024 End: 10-29-2024 ambulatory No Primary Care Physician [facility] Work Phone: Start: 10-17-2024 End: 10-17-2024 Patient encounter procedure Padmini OAKES -[facility] Work Phone: Start: 10-17-2024 End: 10-17-2024 ambulatory No Primary Care Physician Facility[place] Start: 10-03-2024 End: 10-03-[address] Faith Moreland DO -[facility] Work Phone: Start: 10-03-2024 End: 10-03-2024 ambulatory No Primary Care Physician Facility[place] Start: 09-19-2024 End: 09-19-2024 Patient encounter procedure Hilda Hall CNM -[facility] Work Phone: Start: 09-19-2024 End: 09-19-2024 ambulatory Hilda Hall Facility[place] Start: 09-19-2024 End: 09-19-2024 ambulatory No Primary Care Physician Facility:[facility] Start: 09-05-2024 End: 09-05-2024 Patient encounter procedure Hilda Hall VIOLETTEM -[facility] Work Phone: Start: 09-05-2024 End: 09-05-2024 ambulatory Hilda Hall Facility:[facility] Start: 08-08-2024 End: 08-08-[address] Zulay Ruby MD -[facility] Work Phone: Start: 08-08-2024 End: 08-08-2024 ambulatory No Primary Care Physician Facility:[facility] Start: 07-28-2024 End: 07-28-2024 ambulatory Padmini Vasquez CNM Work Phone: [facility] Work Phone: Start: 07-28-2024 End: 07-28-[address] Faith Moreland DO -[facility] Work Phone: Start: 07-28-2024 End: 07-28-2024 ambulatory Faith Moreland Facility:[facility] Start: 07-09-2024 End: 07-09-2024 Patient encounter procedure Malina JORDAN -[facility] Work Phone: Start: 07-09-2024 End: 07-09-2024 ambulatory No Primary Care Physician Facility:[facility] Start: 06-11-2024 End: 06-11-[address] Faith Moreland DO -[facility] Work Phone: Start: 06-11-2024 End: 06-11-2024 ambulatory Faith Moreland Facility:[facility] Start: 05-08-2024 End: 05-08-2024 Patient encounter procedure Padmini Vasquez CNM -Lab, [facility] Start: 05-08-2024 End: 05-08-2024 Patient encounter procedure Padmini Vasquez CNM -[facility] Work Phone: Start: 05-08-2024 End: 05-08-2024 ambulatory Padmini Vasquez Facility:[facility] Start: 05-08-2024 End: 05-08-2024 ambulatory Padmini Vasquez Facility:[facility] Procedures Date Procedure Procedure Detail Performing Clinician Start: 11-21-2024 Ultrasound scan for growth No Primary Care Physician Start: 2024 End: 2024 Beta-hemolytic Streptococcus culture No Primary Care Physician Start: 09-19-2024 Serologic test for syphilis No Primary Care Physician Start: 07-28-2024 Ultrasonography in f irst trimester Padmini Vasquez CNM Work Phone: Start: 05-08-2024 Urine culture Padmini daly CNM Work Phone: Plan of Treatment Date Care Activity Detail Author Start: 11-21-2024 Ultrasound scan for growth [facility] Start: 11-21-2024 [facility] Start: 11-21-2024 Vital signs measurements [facility] Start: 11-21-2024 Patient discharge [facility] Patient Education [facility] ED False Labor OB Triage: Return to Hospital or Notify Physician if you Experience: [facility] Work Phone: Streptococcus agalac tiae [Presence] in Unspecified specimen by Organism specific culture [facility] Ultrasound scan for growth [facility] Payers Date Payer Category Payer Unknown 0 [id number] 2024 Unknown [id number] 2024 Self-pay Unknown [id number] 2.16.8 [id number] Unknown [id number] 2.16.8 [id number] Unknown [id number] 2.16.8 40.1.679965.3.579.2.462 Unknown [id number] 2.16.8 40.1.046270.3.579.2.462 Unknown [id number] 2.16.8 40.1.132787.3.579.2.462 Unknown [id number] 2.16.8 40.1.984588.3.579.2.462 Unknown [id number] 2.16.8 40.1.694816.3.579.2.462 Unknown [id number] 2.16.8 40.1.272631.3.579.2.462 Unknown [id number] 2.16.8 40.1.192736.3.579.2.462 Unknown [id number] 2.16.8 40.1.296588.3.579.2.462 Unknown [id number] 2.16.8 40.1.323345.3.579.2.462 Unknown [id number] 2.16.8 40.1.449871.3.579.2.462 Unknown [id number] 2.16.8 40.1.588498.3.579.2.462 Unknown [id number] 2.16.8 40.1.340721.3.579.2.462 Unknown [id number] 2.16.8 40.1.070592.3.579.2.462 Unknown [id number] 2.16.8 40.1.092515.3.579.2.462 Unknown [id number] 2.16.8 40.1.246118.3.579.2.462 Unknown [id number] 2.16.8 40.1.600109.3.579.2.462 Unknown [id number] 2.16.8 40.1.184233.3.579.2.462 Social History Date Type Detail Facility Start: [facility]-02-[facility]24 [facility] Start: 08-08-2024 Sex Female (finding) [facility] Start: 2000 Sex Assigned At Female W [facility] Clinical Notes 05-08-2024 to 11-27-2024 Note Date & Type Note Facility 11-27-2024 Progress note [facility] 11-27-2024 Progress note Note Date/Time November 27, 2024 3:10pm [facility] [address] [place] [address], [address] [place] [address] OFFICE VISIT Date of Service: 11/27/24 MR#: [id number] Acct: [id number] Name: SEAN MATOS Rep #: [id number] : 2000 Provider: Dr. Narayan Ruby MD Age/Sex: 24/F Location[place] [facility] [place] Status: Signed Intake Vital Signs 10/17/24 10:03 11/21/24 15:44 11/27/24 14:46 11/27/24 14:49 Height 5 ft 7 in 5 ft 8 in 5 ft 8 in 5 ft 8 in Weight: 157 lb BMI 23.8 BP 108/76 Intake Visit Reasons: 38 wk ob Solution Lead Required: No Is patient in pain?: No Feel stressed/tense/nervous/anxious/difficul ty sleeping: not at all Allergies No Known Allergies Allergy (Verified 11/27/24 14:45) Medications ?Medication ?Instructions ?Recorded ?Confirmed ?Type multivitamin no.47-iron fum 27 1 cap PO 05/02/2411/27 History mg-folate no.1 1 mg-dha 300 mg capsule (PNV-DHA) Last Menstrual Period: 03/07/24 Zika: Zika virus screening: Negative : No PFSH PFSH Family History Father Heart disease, Onset Age: 51 Open heart surgery Sister Seizures, Onset Age: 18 2 seizures- unknown cause Social History adopted: No household members: spouse current occupational status: employed current occupation: [employer] current occupational exposures/hazards: No pets and animals: Yes (Avoid litterbox) pets and animals: cat(s) and dog(s) history of recent travel: Yes ( - February) out of state: Yes out of country: No sexually active: Yes Smoking Status: Never smoker alcohol intake: current alcohol intake frequency: a few times a week details: Not while . substance use type: does not use well-balanced diet: daily or most days caffeine: No eating out: rarely or never during the past year weight has: remained stable what type of physical activity do you participate in: walking and aerobics frequency: 1-2 times per week duration: 15-30 minutes/day vernon/confucianist: Mandaen seatbelt use: always do you feel safe at home: Yes additional social history: Tenzin- [employer] History 1 Elective abortions Hx Para 0 Spontaneous abortions Hx # Term Pregnancies Ectopic pregnancies Hx # Pregnancies Multiple births # of living children HPI 38 wk ob Details: SEAN MATOS is a 24 year old who presents for routine OB visit. OB Visit FLORIDALMA Calculator Estimated Delivery Date Method Current WG Current Estimate 12/12/24 LMP (Certain) 37w 6d Other Estimates 12/09/24 Ultrasound #1 38w 2d Expected Delivery Route/Plan Labor Preferences- CB/BF classes: yes labor support person: Tenzin labor intervention preferences: [] pain management options preferred: prefers minimal intervention. open to epidural if medically needed cut cord/dad catch: yes : yes PP control planned: [] discussed possible routes of delivery and associated risks: [] special requests: [] Specific Issue/Plans Covid status: [] Flu vaccine: [] Tdap vaccine: declined Rhogam: obtained 09/19/2024 LARC form signed: done Problem list reviewed and updated with the most current plan of care details and appropriate orders placed. Relevant counseling for the gestational age provided. Continue routine care and follow up unless otherwise noted in visit notes/problem list details Initial Weight: 135 lb Date -?-?-?-?-?-?-?-?-?-?-?-?- EGA Weight BP Urine Prot -?-?-?-?-?-?-?-?-?-?-?-?- Glucose FHR FuHt Pres Dilation -?-?-?-?-?-?-?-?-?-?-?-?- Effaced St Visit Note 05/08/24 -?-?-?-?-?-?-?-?-?-?-?-?- 8w 6d 135 lb (+0 oz) 133/80 -?-?--?-?-?-?-?-?-?-?-?-?- 176 -?-?-?-?-?-?-?-?-?-?-?-?- KW- CRL cons wit h dates. declines NIPT at this time. 06/11/24 -?-?-?-?-?-?-?-?-?-?-?-?- 13w 5d 133 lb 6 oz (-1 lb 10 oz) 129/83 Negative -?-?-?-?-?-?-?-?-?-?-?-?- Negative 155 -?-?-?-?-?-?-?-?-?-?-?-?- JV- CRL consiste nt with dates still. No complaints today. anatomy scan ordered. 07/09/24 -?-?-?-?-?-?-?-?-?-?-?-?- 17w 5d 138 lb 4 oz (+3 lb 4 oz) 116/78 Negative -?-?-?-?-?-?-?-?-?-?-?-?- Negative 151 -?-?-?-?-?-?-?-?-?-?-?-?- MH-No VB. Greg ag movement. US anatomy next week 08/08/24 -?-?--?-?-?-?-?-?-?-?-?-?- 22w 0d 141 lb (+6 lb) 110/70 Negative -?-?-?-?-?-?-?-?-?-?-?-?- Negative 140 22 -?-?-?-?-?-?-?-?-?-?-?-?- SM- no vb lof go od fm no reuglar ctx 09/05/24 -?-?-?-?-?-?-?-?-?-?-?-?- 26w 0d 136 lb 4 oz (+1 lb 4 oz) 131/81 Negative -?-?--?-?-?-?-?-?-?-?-?-?- Negative 145 26 -?-?-?-?-?-?-?-?-?-?-?-?- LC- no vb/ctx/lo f. good fm. 28 week labs ordered. 09/19/24 -?-?-?-?-?-?-?-?-?-?-?-?- 28w 0d 148 lb 6 oz (+13 lb 6 oz) 119/78 Negative -?-?-?-?-?-?-?-?-?-?-?-?- 100 g/dL 135 27 -?-?-?-?-?-?-?-?-?-?-?-?- LC- no vb/ctx/lo f. good fm. labs pending. questions answered on CBE, pedi, labor standards 10/03/24 -?-?-?-?-?-?-?-?-?-?-?-?- 30w 0d 152 lb 6 oz (+17 lb 6 oz) 131/80 Negative -?-?-?-?-?-?-?-?-?-?-?-?- Negative 141 29 -?-?-?-?-?-?-?-?-?-?-?-?- JV- no lof, vagi nal bleeding, or dec fm. no complaints today. no proteinuria. asymptomatic. JV- no lof, vaginal bleeding , or dec fm. no complaints today. no proteinuria. asymptomatic. undecided about tdap. 10/17/24 -?-?-?-?-?-?-?-?-?-?-?-?- 32w 0d 151 lb 8 oz (+16 lb 8 oz) 128/77 Negative -?-?-?-?-?-?-?-?-?-?-?-?- Negative 145 31 -?-?-?-?-?-?-?-?-?-?-?-?- KW- no vb/lof/ct x. good fm. 10/29/24 -?-?-?-?-?-?-?-?-?-?-?-?- 33w 5d 151 lb 6 oz (+16 lb 6 oz) 124/80 Negative -?-?-?-?-?-?-?-?-?-?-?-?- Negative 142 32 -?-?-?-?-?-?-?-?-?-?-?-?- MH-No VB, LOF. G ood FM 11/14/24 -?-?-?-?-?-?-?-?-?-?-?-?- 36w 0d 155 lb 8 oz (+20 lb 8 oz) 123/82 Negative -?-?-?-?-?-?-?-?-?-?-?-?- Negative 140 35 Cephalic -?-?-?-?-?-?-?-?-?-?-?-?- SM- no vb lof go od fm no regular ctx gbs today laborprefereences reviewed 11/20/24 -?-?-?-?-?-?-?-?-?-?-?-?- 36w 6d 156 lb 6 oz (+21 lb 6 oz) 125/79 Negative -?-?-?-?--?-?-?-?-?-?-?-?- Negative 140 34 Cephalic -?-?-?-?-?-?-?-?-?-?-?-?- SM- gbs discusse d no vb lof good fm no regular ctx uter size date discrepancy US ordered. 11/27/24 -?-?-?-?-?-?-?-?-?-?-?-?- 37w 6d 157 lb (+22 lb) 108/76 Negative -?-?-?-?-?-?-?-?-?-?-?-?- Negative 140 36 Cephalic 1 .5 -?-?-?-?-?-?-?-?-?-?-?-?- 70 -2 SM- no vb lof good fm no reuglar ctx ACOG First Trimester First Trimester: Discussed Second Trimester Second Trimester: Signs and Symptoms of Labor, Selecting a care provider, Reproductive Life Planning & Contreception, Care Planning, Depression/Anxiety and Intimate Partner Violence; Discussed Tobacco Cessation Third Trimester Third Trimester: Pain Management Plans, Labor support person(s), Immediate Larc, Circumcision preference, Signs and Symptoms of Preeclampsia, Infant Feeding No , Education, Family Medical Leave or Disability Forms and Intimate Partner Violence Results POC Urinalysis 2 Dip (Clinic) Office Urine Glucose Negative Last Edit by Malina Harrell on 11/27/24 14:51 Office Urine Protein Negative Last Edit by Malina Harrell on 11/27/24 14:51 Coding Level of Care Code OB Routine Diagnoses Uterine size-date discrepancy, third trimester O26.843 Positive GBS test B95.1 Encounter for supervision of normal first in third trimester Z34.03 Trimester: third trimester Rh negative state in antepartum period O26.899; Z67.91 37 weeks gestation of Z3A.37 Weeks of gestation: 37 weeks Assessment and Plan Assessment and Plan (1) Uterine size-date discrepancy, third trimester: Status: Acute Comment: growth US ordered (2) Positive GBS test: Status: Acute Comment: PCN in labor (3) Supervision of normal first : Status: Acute Qualifiers: Trimester: third trimester Qualified Code(s): Z34.03 - Encounter for supervision of normal first , third trimester Comment: PRR , FLORIDALMA 12/12/24, boy Tenzin (4) Rh negative state in antepartum period: Status: Acute Comment: needs rhogam at 28 weeks and PRN (5) : Status: Acute Qualifiers: Weeks of gestation: 37 weeks Qualified Code(s): Z3A.37 - 37 weeks gestation of Comment: NIPT, ntd, & Carrier testing - declines. nl anatomy, nl glucose Orders: Orders POC Urinalysis 2 Dip (Clinic) Today 11/27/24 1510 <Electronically signed by Zulay haile MD> Date _ Zulay Ruby MD Cosigner Signature: Date (if applicable) CC: ~ [facility] Work Phone: 1(398) 512-659006-26-2025 Progress [facility] [address] [place] [address], [address] [place] [address] OFFICE VISIT Date of Service: 11/20/24 MR#: [id number] Acct: [id number] Name: CARLOSEAN Rep #: [id number] : 2000 Provider: Dr. Narayan Ruby MD Age/Sex: 24/F [place] [facility] [place] Status: Signed Intake Vital Signs 10/03/24 10:16 11/14/24 08:55 11/20/24 15:37 Height 5 ft 7 in 5 ft 7 in 5 ft 7 in Weight: 156 lb 6 oz BMI 24.5 BP 125/79 H Intake Visit Reasons: 37 wk ob Solution Lead Required: No Is patient in pain?: No Allergies No Known Allergies Allergy (Verified 11/20/24 15:35) Medications ?Medication ?Instructions ?Recorded ?Confirmed ?Type multivitamin no.47-iron fum 27 cap PO 05/02/24 5 History mg-folate no.1 1 mg-dha 300 mg capsule (PNV-DHA) Last Menstrual Period: 03/07/24 Zika: Zika virus screening: Negative : No PFSH PFSH Family History Father Heart disease, Onset Age: 51 Open heart surgery Sister Seizures, Onset Age: 18 2 seizures- unknown cause Social History adopted: No household members: spouse current occupational status: employed current occupation: [employer] current occupational exposures/hazards: No pets and animals: Yes (Avoid litterbox) pets and animals: cat(s) and dog(s) history of recent travel: Yes ( - February) out of state: Yes out of country: No sexually active: Yes Smoking Status: Never smoker alcohol intake: current alcohol intake frequency: a few times a week details: Not while . substance use type: does not use well-balanced diet: daily or most days caffeine: No eating out: rarely or never during the past year weight has: remained stable what type of physical activity do you participate in: walking and aerobics frequency: 1-2 times per week duration: 15-30 minutes/day vernon/confucianist: Mandaen seatbelt use: always do you feel safe at home: Yes additional social history: Tenzin- [employer] History 1 Elective abortions Hx Para 0 Spontaneous abortions Hx # Term Pregnancies Ectopic pregnancies Hx # Pregnancies Multiple births # of living children HPI 37 wk ob Details: SEAN MATOS is a 24 year old who presents for routine OB visit. OB Visit FLORIDALMA Calculator Estimated Delivery Date Method Current WG Current Estimate 12/12/24 LMP (Certain) 36w 6d Other Estimates 12/09/24 Ultrasound #1 37w 2d Expected Delivery Route/Plan Labor Preferences- CB/BF classes: yes labor support person: Tenzin labor intervention preferences: [] pain management options preferred: prefers minimal intervention. open to epidural if medically needed cut cord/dad catch: yes : yes PP control planned: [] discussed possible routes of delivery and associated risks: [] special requests: [] Specific Issue/Plans Covid status: [] Flu vaccine: [] Tdap vaccine: declined Rhogam: obtained 09/19/2024 LARC form signed: done Problem list reviewed and updated with the most current plan of care details and appropriate ordersplaced. Relevant counseling for the gestational age provided. Continue routine care and follow up unless otherwise noted in visit notes/problem list details Initial Weight: 135 lb Date -?-?-?-?-?-?-?-?-?-?-?-?- EGA Weight BP Urine Prot -?-?-?-?-?-?-?-?-?-?-?-?- Glucose FHR FuHt Pres Dilation -?-?-?-?-?-?-?-?-?-?-?-?- Effaced St Visit Note 05/08/24 -?-?-?-?-?-?-?-?-?-?-?-?- 8w 6d 135 lb (+0 oz) 133/80 -?-?-?-?-?-?-?-?-?-?-?-?- 176 -?-?-?-?-?-?-?-?-?-?-?-?- KW- CRL cons wit h dates. declines NIPT at this time. 06/11/24 -?-?-?-?-?-?-?-?-?-?-?-?- 13w 5d 133 lb 6 oz (-1 lb 10 oz) 129/83 Negative -?-?-?-?-?-?-?-?-?-?-?-?- Negative 155 -?-?-?-?-?-?-?-?-?-?-?-?- JV- CRL consiste nt with dates still. No complaints today. anatomy scan ordered. 07/09/24 -?-?-?-?-?-?-?-?-?-?-?-?- 17w 5d 138 lb 4 oz (+3 lb 4 oz) 116/78 Negative -?-?-?-?-?-?-?-?-?-?-?-?- Negative 151 -?-?-?-?-?-?-?-?-?-?-?-?- MH-No VB. Greg g movement. anatomy next week 08/08/24 -?-?-?-?-?-?-?-?-?-?-?-?- 22w 0d 141 lb (+6 lb) 110/70 Negative -?-?-?-?-?-?-?-?-?-?-?-?- Negative 140 22 -?-?-?-?-?-?-?-?-?-?-?-?- SM- no vb lof go od fm no reuglar ctx 09/05/24 -?-?-?-?-?-?-?-?-?-?-?-?- 26w 0d 136 lb 4 oz (+1 lb 4 oz) 131/81 Negative -?-?-?-?-?-?-?-?-?-?-?-?- Negative 145 26 -?-?-?-?-?-?-?-?-?-?-?-?- LC- no vb/ctx/lo f. good fm. 28 week labs ordered. 09/19/24 -?-?-?-?-?-?-?-?-?-?-?-?- 28w 0d 148 lb 6 oz (+13 lb 6 oz) 119/78 Negative -?-?-?-?-?-?-?-?-?-?-?-?- 100 g/dL 135 27 -?-?-?-?-?-?-?-?-?-?-?-?- LC- no vb/ctx/lo f. good fm. labs pending. questions answered on CBE, pedi, labor standards 10/03/24 -?-?-?-?-?-?-?-?-?-?--?-?- 30w 0d 152 lb 6 oz (+17 lb 6 oz) 131/80 Negative -?-?-?-?-?-?-?-?-?-?-?-?- Negative 141 29 -?-?-?-?-?-?-?-?-?-?-?-?- JV- no lof, vagi nal bleeding, or dec fm. no complaints today. no proteinuria. asymptomatic. JV- no lof, vaginal bleeding , or dec fm. no complaints today. no proteinuria. asymptomatic. undecided about tdap. 10/17/24 -?-?-?-?-?-?-?-?-?-?-?-?- 32w 0d 151 lb 8 oz (+16 lb 8 oz) 128/77 Negative -?-?-?-?-?-?-?-?-?-?-?-?- Negative 145 31 -?-?-?-?-?-?-?-?-?-?-?-?- KW- no vb/lof/ct x. good fm. 10/29/24 -?-?-?-?-?-?-?-?-?-?-?-?- 33w 5d 151 lb 6 oz (+16 lb 6 oz) 124/80 Negative -?-?-?-?-?-?-?-?-?-?-?-?- Negative 142 32 -?-?-?-?-?-?-?-?-?-?-?-?- MH-No VB, LOF. G ood FM 11/14/24 -?-?-?-?-?-?-?-?-?-?-?-?- 36w 0d 155 lb 8 oz (+20 lb 8 oz) 123/82 Negative -?-?-?-?-?-?-?-?-?-?-?-?- Negative 140 35 Cephalic -?-?-?-?-?-?-?-?-?-?-?-?- SM- no vb lof go od fm no regular ctx gbs today laborprefereences reviewed 11/20/24 -?-?-?-?-?-?-?-?-?-?-?-?- 36w 6d 156 lb 6 oz (+21 lb 6 oz) 125/79 Negative -?-?-?-?-?-?-?-?-?-?-?-?- Negative 140 34 Cephalic -?-?-?-?-?-?-?-?-?-?-?-?- SM- gbs discusse d no vb lof good fm no regular ctx uter size date discrepancy US ordered. ACOG First Trimester First Trimester: Discussed Second Trimester Second Trimester: Signs and Symptoms of Labor, Selecting a care provider, Reproductive Life Planning & Contreception, Care Planning, Depression/Anxiety and Intimate Partner Violence; Discussed Tobacco Cessation Third Trimester Third Trimester: Pain Management Plans, Labor support person(s), Immediate Larc, Circumcision preference, Signs and Symptoms of Preeclampsia, Feeding No , [place] Education, Family Medical Leave or Disability Forms and Intimate Partner Violence Results POC Urinalysis 2 Dip (Clinic) Office Urine Glucose Negative Last Edit by Malina Harrell on 11/20/24 15:39 Office Urine Protein Negative Last Edit by Malina Harrell on 11/20/24 15:39 Coding Level of Care Code OB Routine Diagnoses Positive GBS test B95.1 Encounter for supervision of normal first in third trimester Z34.03 Trimester: third trimester 36 weeks gestation of Z3A.36 Weeks of gestation: 36 weeks Rh negative state in antepartum period O26.899; Z67.91 Uterine size-date discrepancy, third trimester O26.843 Assessment and Plan Assessment and Plan (1) Positive GBS test: Status: Acute Comment: PCN in labor (2) Supervision of normal first : Status: Acute Qualifiers: Trimester: third trimester Qualified Code(s): Z34.03 - Encounter for supervision of normal first , third trimester Comment: PRR , FLORIDALMA 12/12/24, boy Tenzin (3) : Status: Acute Qualifiers: Weeks of gestation: 36 weeks Qualified Code(s): Z3A.36 - 36 weeks gestation of Comment: NIPT, ntd, & Carrier testing - declines. nl anatomy, nl glucose (4) Rh negative state in antepartum period: Status: Acute Comment: needs rhogam at 28 weeks and PRN (5) Uterine size-date discrepancy, third trimester: Status: Acute Comment: growth US ordered Orders: Orders POC Urinalysis 2 Dip (Clinic) Today 11/20/24 1610 mic BULL> Date _ Zulay Ruby MD Cosigner Signature: Date (if applicable) CC: ~ [place] [facility]06-26-2025 Progress note Author Zulay Ruby [facility] Note Date/Time November 20, 2024 4:10 pm [facility] [address] [place] [address], [address] [place] [address] OFFICE VISIT Date of Service: 11/20/24 MR#: [id number] Acct: [id number] Name: SEAN MATOS Rep #: [id number] : 2000 Provider: Dr. Narayan Ruby MD Age/Sex: 24/F Location[place] [facility] [place] Status: Signed Intake Vital Signs 10/03/24 10:16 11/14/24 08:55 11/20/24 15:37 Height 5 ft 7 in 5 ft 7 in 5 ft 7 in Weight: 156 lb 6 oz BMI 24.5 BP 125/79 H Intake Visit Reasons: 37 wk ob Solution Lead Required: No Is patient in pain?: No Allergies No Known Allergies Allergy (Verified 11/20/24 15:35) Medications ?Medication ?Instructions ?Recorded ?Confirmed ?Type multivitamin no.47-iron fum 27 cap PO 05/02/24 5 History mg-folate no.1 1 mg-dha 300 mg capsule (PNV-DHA) Last Menstrual Period: 03/07/24 Zika: Zika virus screening: Negative : No PFSH PFSH Family History Father Heart disease, Onset Age: 51 Open heart surgery Sister Seizures, Onset Age: 18 2 seizures- unknown cause Social History adopted: No household members: spouse current occupational status: employed current occupation: [employer] current occupational exposures/hazards: No pets and animals: Yes (Avoid litterbox) pets and animals: cat(s) and dog(s) history of recent travel: Yes ( - February) out of state: Yes out of country: No sexually active: Yes Smoking Status: Never smoker alcohol intake: current alcohol intake frequency: a few times a week details: Not while . substance use type: does not use well-balanced diet: daily or most days caffeine: No eating out: rarely or never during the past year weight has: remained stable what type of physical activity do you participate in: walking and aerobics frequency: 1-2 times per week duration: 15-30 minutes/day vernon/confucianist: Mandaen seatbelt use: always do you feel safe at home: Yes additional social history: Tenzin- [employer] History 1 Elective abortions Hx Para 0 Spontaneous abortions Hx # Term Pregnancies Ectopic pregnancies Hx # Pregnancies Multiple births # of living children HPI 37 wk ob Details: SEAN MATOS is a 24 year old who presents for routine OB visit. OB Visit FLORIDALMA Calculator Estimated Delivery Date Method Current WG Current Estimate 12/12/24 LMP (Certain) 36w 6d Other Estimates 12/09/24 Ultrasound #1 37w 2d Expected Delivery Route/Plan Labor Preferences- CB/BF classes: yes labor support person: Tenzin labor intervention preferences: [] pain management options preferred: prefers minimal intervention. open to epidural if medically needed cut cord/dad catch: yes : yes PP control planned: [] discussed possible routes of delivery and associated risks: [] special requests: [] Specific Issue/Plans Covid status: [] Flu vaccine: [] Tdap vaccine: declined Rhogam: obtained 09/19/2024 LARC form signed: done Problem list reviewed and updated with the most current plan of care details and appropriate orders placed. Relevant counseling for the gestational age provided. Continue routine care and follow up unless otherwise noted in visit notes/problem list details Initial Weight: 135 lb Date -?-?-?-?-?-?-?-?-?-?-?-?- EGA Weight BP Urine Prot -?-?-?-?-?-?-?-?-?-?-?-?- Glucose FHR FuHt Pres Dilation -?-?-?-?-?-?-?-?-?-?-?-?- Effaced St Visit Note 05/08/24 -?-?-?-?-?-?-?-?-?-?-?-?- 8w 6d 135 lb (+0 oz) 133/80 -?-?-?-?-?-?-?-?-?-?-?-?- 176 -?-?-?-?-?-?-?-?-?-?-?-?- KW- CRL cons wit h dates. declines NIPT at this time. 06/11/24 -?-?-?-?-?-?-?-?-?-?-?-?- 13w 5d 133 lb 6 oz (-1 lb 10 oz) 129/83 Negative -?-?-?-?-?-?-?-?-?-?-?-?- Negative 155 -?-?-?-?-?-?-?-?-?-?-?-?- JV- CRL consiste nt with dates still. No complaints today. anatomy scan ordered. 07/09/24 -?-?-?-?-?-?-?-?-?-?-?-?- 17w 5d 138 lb 4 oz (+3 lb 4 oz) 116/78 Negative -?-?-?-?-?-?-?-?-?-?-?-?- Negative 151 -?-?-?-?-?-?-?-?-?-?-?-?- MH-No VB. Greg ag movement. US anatomy next week 08/08/24 -?-?-?-?-?-?-?-?-?-?-?-?- 22w 0d 141 lb (+6 lb) 110/70 Negative -?-?-?-?-?-?-?-?-?-?-?-?- Negative 140 22 -?-?-?-?-?-?-?-?-?-?-?-?- SM- no vb lof go od fm no reuglar ctx 09/05/24 -?-?-?-?-?-?-?-?-?-?-?-?- 26w 0d 136 lb 4 oz (+1 lb 4 oz) 131/81 Negative -?-?-?-?-?-?-?-?-?-?-?-?- Negative 145 26 -?-?-?-?-?-?-?-?-?-?-?-?- LC- no vb/ctx/lo f. good fm. 28 week labs ordered. 09/19/24 -?-?-?-?-?-?-?-?-?-?-?-?- 28w 0d 148 lb 6 oz (+13 lb 6 oz) 119/78 Negative -?-?-?-?-?-?-?-?-?-?-?-?- 100 g/dL 135 27 -?-?-?-?-?-?-?-?-?-?-?-?- LC- no vb/ctx/lo f. good fm. labs pending. questions answered on CBE, pedi, labor standards 10/03/24 -?-?-?-?-?-?-?-?-?-?--?-?- 30w 0d 152 lb 6 oz (+17 lb 6 oz) 131/80 Negative -?-?-?-?-?-?-?-?-?-?-?-?- Negative 141 29 -?-?-?-?-?-?-?-?-?-?-?-?- JV- no lof, vagi nal bleeding, or dec fm. no complaints today. no proteinuria. asymptomatic. JV- no lof, vaginal bleeding , or dec fm. no complaints today. no proteinuria. asymptomatic. undecided about tdap. 10/17/24 -?-?-?-?-?-?-?-?-?-?-?-?- 32w 0d 151 lb 8 oz (+16 lb 8 oz) 128/77 Negative -?-?-?-?-?-?-?-?-?-?-?-?- Negative 145 31 -?-?-?-?-?-?-?-?-?-?-?-?- KW- no vb/lof/ct x. good fm. 10/29/24 -?-?-?-?-?-?-?-?-?-?-?-?- 33w 5d 151 lb 6 oz (+16 lb 6 oz) 124/80 Negative -?-?-?-?-?-?-?-?-?-?-?-?- Negative 142 32 -?-?-?-?-?-?-?-?-?-?-?-?- MH-No VB, LOF. G ood FM 11/14/24 -?-?-?-?-?-?-?-?-?-?-?-?- 36w 0d 155 lb 8 oz (+20 lb 8 oz) 123/82 Negative -?-?-?-?-?-?-?-?-?-?-?-?- Negative 140 35 Cephalic -?-?-?-?-?-?-?-?-?-?-?-?- SM- no vb lof go od fm no regular ctx gbs today laborprefereences reviewed 11/20/24 -?-?-?-?-?-?-?-?-?-?-?-?- 36w 6d 156 lb 6 oz (+21 lb 6 oz) 125/79 Negative -?-?-?-?-?-?-?-?-?-?-?-?- Negative 140 34 Cephalic -?-?-?-?-?-?-?-?-?-?-?-?- SM- gbs discusse d no vb lof good fm no regular ctx uter size date discrepancy US ordered. ACOG First Trimester First Trimester: Discussed Second Trimester Second Trimester: Signs and Symptoms of Labor, Selecting a care provider, Reproductive Life Planning & Contreception, Care Planning, Depression/Anxiety and Intimate Partner Violence; Discussed Tobacco Cessation Third Trimester Third Trimester: Pain Management Plans, Labor support person(s), Immediate Larc, Circumcision preference, Signs and Symptoms of Preeclampsia, Infant Feeding No , Education, Family Medical Leave or Disability Forms and Intimate Partner Violence Results POC Urinalysis 2 Dip (Clinic) Office Urine Glucose Negative Last Edit by Malina Harrell on 11/20/24 15:39 Office Urine Protein Negative Last Edit by Malina Harrell on 11/20/24 15:39 Coding Level of Care Code OB Routine Diagnoses Positive GBS test B95.1 Encounter for supervision of normal first in third trimester Z34.03 Trimester: third trimester 36 weeks gestation of Z3A.36 Weeks of gestation: 36 weeks Rh negative state in antepartum period O26.899; Z67.91 Uterine size-date discrepancy, third trimester O26.843 Assessment and Plan Assessment and Plan (1) Positive GBS test: Status: Acute Comment: PCN in labor (2) Supervision of normal first : Status: Acute Qualifiers: Trimester: third trimester Qualified Code(s): Z34.03 - Encounter for supervision of normal first , third trimester Comment: PRR , FLORIDALMA 12/12/24, boy Tenzin (3) : Status: Acute Qualifiers: Weeks of gestation: 36 weeks Qualified Code(s): Z3A.36 - 36 weeks gestation of Comment: NIPT, ntd, & Carrier testing - declines. nl anatomy, nl glucose (4) Rh negative state in antepartum period: Status: Acute Comment: needs rhogam at 28 weeks and PRN (5) Uterine size-date discrepancy, third trimester: Status: Acute Comment: growth US ordered Orders: Orders POC Urinalysis 2 Dip (Clinic) Today 11/20/24 1610 <Electronically signed by Zulay haile MD> Date _ Zulay Ruby MD Cosigner Signature: Date (if applicable) CC: ~ [facility] Work Phone: 1(421) 367-983806-20-2025 [facility] [address] [place] [address], [address] [place] [address] OFFICE VISIT Date of Service: 11/14/24 MR#: [id number] Acct: [id number] Name: SEAN MATOS Rep #: [id number] : 2000 Provider: Dr. Narayan Ruby MD Age/Sex: 24/F [place] [facility] [place] Status: Signed Intake Vital Signs 10/03/24 10:16 10/29/24 08:30 11/14/24 08:50 11/14/24 08:55 Height 5 ft 7 in 5 ft 7 in 5 ft 7 in 5 ft 7 in Weight: 155 lb 8 oz BMI 24.3 BP 123/82 H Intake Visit Reasons: 36 wk ob Solution Lead Required: No Is patient in pain?: No Feel stressed/tense/nervous/anxious/difficulty sleeping: not at all Allergies No Known Allergies Allergy (Verified 11/14/24 08:50) Medications ?Medication ?Instructions ?Recorded ?Confirmed ?Type multivitamin no.47-iron fum 27 cap PO 05/02/24 5 History mg-folate no.1 1 mg-dha 300 mg capsule (PNV-DHA) Last Menstrual Period: 03/07/24 Zika: Zika virus screening: Negative : No PFSH PFSH Family History Father Heart disease, Onset Age: 51 Open heart surgery Sister Seizures, Onset Age: 18 2 seizures- unknown cause Social History adopted: No household members: spouse current occupational status: employed current occupation: [employer] current occupational exposures/hazards: No pets and animals: Yes (Avoid litterbox) pets and animals: cat(s) and dog(s) history of recent travel: Yes ( - February) out of state: Yes out of country: No sexually active: Yes Smoking Status: Never smoker alcohol intake: current alcohol intake frequency: a few times a week details: Not while . substance use type: does not use well-balanced diet: daily or most days caffeine: No eating out: rarely or never during the past year weight has: remained stable what type of physical activity do you participate in: walking and aerobics frequency: 1-2 times per week duration: 15-30 minutes/day vernon/confucianist: Mandaen seatbelt use: always do you feel safe at home: Yes additional social history: Tenzin- [employer] History 1 Elective abortions Hx Para 0 Spontaneous abortions Hx # Term Pregnancies Ectopic pregnancies Hx # Pregnancies Multiple births # of living children HPI 36 wk ob Details: SEAN MATOS is a 24 year old who presents for routine OB visit. OB Visit FLORIDALMA Calculator Estimated Delivery Date Method Current WG Current Estimate 12/12/24 LMP (Certain) 36w 0d Other Estimates 12/09/24 Ultrasound #1 36w 3d Expected Delivery Route/Plan Labor Preferences- CB/BF classes: yes labor support person: Tenzin labor intervention preferences: [] pain management options preferred: prefers minimal intervention. open to epidural if medically needed cut cord/dad catch: yes : yes PP control planned: [] discussed possible routes of delivery and associated risks: [] special requests: [] Specific Issue/Plans Covid status: [] Flu vaccine: [] Tdap vaccine: declined Rhogam: obtained 09/19/2024 LARC form signed: done Problem list reviewed and updated with the most current plan of care details and appropriate ordersplaced. Relevant counseling for the gestational age provided. Continue routine care and follow up unless otherwise noted in visit notes/problem list details Initial Weight: 135 lb Date -?-?-?-?-?-?-?-?-?--?-?-?- EGA Weight BP Urine Prot -?-?-?-?-?-?-?-?-?-?-?-?- Glucose FHR FuHt Pres Dilation -?-?-?-?-?-?-?-?-?-?-?-?- Effaced St Visit Note 05/08/24 -?-?-?-?-?-?-?-?-?-?-?-?- 8w 6d 135 lb (+0 oz) 133/80 -?-?-?-?-?-?-?-?-?-?-?-?- 176 -?-?-?-?-?-?-?-?-?-?-?-?- KW- CRL cons wit h dates. declines NIPT at this time. 06/11/24 -?-?-?-?-?-?-?-?-?-?-?-?- 13w 5d 133 lb 6 oz (-1 lb 10 oz) 129/83 Negative -?-?-?-?-?-?-?-?-?-?-?-?- Negative 155 -?-?-?-?-?-?-?-?-?-?-?-?- JV- CRL consiste nt with dates still. No complaints today. anatomy scan ordered. 07/09/24 -?-?-?-?-?-?-?-?-?-?-?-?- 17w 5d 138 lb 4 oz (+3 lb 4 oz) 116/78 Negative -?-?-?-?-?-?-?-?-?-?-?-?- Negative 151 -?-?-?-?-?-?-?-?-?-?-?-?- MH-No VB. Greg jacques. US anatomy next week 08/08/24 -?-?-?-?-?-?-?-?-?-?-?-?- 22w 0d 141 lb (+6 lb) 110/70 Negative -?-?-?-?-?-?-?-?-?-?-?-?- Negative 140 22 -?-?-?-?-?-?-?-?-?-?-?-?- SM- no vb lof go od fm no reuglar ctx 09/05/24 -?-?-?-?-?-?-?-?-?-?-?-?- 26w 0d 136 lb 4 oz (+1 lb 4 oz) 131/81 Negative -?-?-?-?-?-?-?-?-?-?-?-?- Negative 145 26 -?-?-?-?-?-?-?-?-?-?-?-?- LC- no vb/ctx/lo f. good fm. 28 week labs ordered. 09/19/24 -?-?-?-?-?-?-?-?-?-?-?-?- 28w 0d 148 lb 6 oz (+13 lb 6 oz) 119/78 Negative -?-?-?-?-?-?-?-?-?-?-?-?- 100 g/dL 135 27 -?-?-?-?-?-?-?-?-?-?-?-?- LC- no vb/ctx/lo f. good fm. labs pending. questions answered on CBE, pedi, labor standards 10/03/24 -?-?-?-?-?-?-?-?-?-?-?-?- 30w 0d 152 lb 6 oz (+17 lb 6 oz) 131/80 Negative -?-?-?-?-?-?-?-?-?-?-?-?- Negative 141 29 -?-?-?-?-?-?-?-?-?-?-?-?- JV- no lof, vagi nal bleeding, or dec fm. no complaints today. no proteinuria. asymptomatic. JV- no lof, vaginal bleeding , or dec fm. no complaints today. no proteinuria. asymptomatic. undecided about tdap. 10/17/24 -?-?-?-?-?-?-?-?-?-?-?-?- 32w 0d 151 lb 8 oz (+16 lb 8 oz) 128/77 Negative -?-?-?-?-?-?-?-?-?-?-?-?- Negative 145 31 -?-?-?-?-?-?-?-?-?-?-?-?- KW- no vb/lof/ct x. good fm. 10/29/24 -?-?-?-?-?-?-?-?-?-?-?-?- 33w 5d 151 lb 6 oz (+16 lb 6 oz) 124/80 Negative -?-?-?-?-?-?-?-?-?--?-?-?- Negative 142 32 -?-?-?-?-?-?-?-?-?-?-?-?- MH-No VB, LOF. G ood FM 11/14/24 -?-?-?-?-?-?-?-?-?-?-?-?- 36w 0d 155 lb 8 oz (+20 lb 8 oz) 123/82 Negative -?-?-?-?-?-?-?-?-?-?-?-?- Negative 140 35 Cephalic -?-?-?-?-?-?-?-?-?-?-?-?- SM- no vb lof go od fm no regular ctx gbs today laborprefereences reviewed ACOG First Trimester First Trimester: Discussed Second Trimester Second Trimester: Signs and Symptoms of Labor, Selecting a care provider, Reproductive Life Planning & Contreception, Care Planning, Depression/Anxiety and Intimate Partner Violence; Discussed Tobacco Cessation Third Trimester Third Trimester: Pain Management Plans, Labor support person(s), Immediate Larc, Circumcision preference, Signs and Symptoms of Preeclampsia, Feeding No , [place] Education, Family Medical Leave or Disability Forms and Intimate Partner Violence Results POC Urinalysis 2 Dip (Clinic) Office Urine Glucose Negative Last Edit by Malina Harrell on 11/14/24 09:07 Office Urine Protein Negative Last Edit by Malina Harrell on 11/14/24 09:07 Coding Level of Care Code OB Routine Diagnoses Encounter for supervision of normal first in third trimester Z34.03 Trimester: third trimester 36 weeks gestation of Z3A.36 Weeks of gestation: 36 weeks Rh negative state in antepartum period O26.899; Z67.91 Assessment and Plan Assessment and Plan (1) Supervision of normal first : Status: Acute Qualifiers: Trimester: third trimester Qualified Code(s): Z34.03 - Encounter for supervision of normal first , third trimester Comment: PRR , FLORIDALMA 12/12/24, boy Tenzin (2) : Status: Acute Qualifiers: Weeks of gestation: 36 weeks Qualified Code(s): Z3A.36 - 36 weeks gestation of Comment: NIPT, ntd, & Carrier testing - declines. nl anatomy, nl glucose (3) Rh negative state in antepartum period: Status: Acute Comment: needs rhogam at 28 weeks and PRN Orders: Orders POC Urinalysis 2 Dip (Clinic) Today Culture, Group B Streptococcus Today Z34.03 - Encounter for supervision of normal first , third trimester 11/14/24 0932 mic BULL> Date _ Zulay Ruby MD Cosigner Signature: Date (if applicable) CC: ~ [facility]03-14-2025 Evaluation note* Diagnosis Onset Date Resolution Status Admit Date acute August 08 10:54am Rh negative state in antepar roger period acute August 08, 2024 10:54am Supervision of normal first acute August 08, 2024 10:54am acute September 05 3:07pm Rh negative state in antepar roger period acute September 05, 2024 3:07pm Supervision of normal first acute September 05, 2024 3:07pm acute September 19 8:24am Rh negative state in antepar roger period acute September 19, 2024 8:24am Supervision of normal first acute September 19, 2024 8:24am acute October 03, 2024 10:05am Rh negative state in antepar roger period acute October 03, 2024 10 :05am Supervision of normal first acute October 03, 2024 10 :05am acute October 17, 2024 10:00am Rh negative state in antepar roger period acute October 17, 2024 1 0:00am Supervision of normal first acute October 17, 2024 1 0:00am acute October 29, 2024 8:26am Rh negative state in antepar roger period acute October 29, 2024 8 :26am Supervision of normal first acute October 29, 2024 8 :26am acute November 14 8:48am Rh negative state in antepar roger period acute 2024 8:48am Supervision of normal first acute 2024 8:48am [facility] Work Phone: 1(284) 393-483903-14-2025 Evaluation note* Diagnosis Onset Date Resolution Status Admit Date acute August 08 10:54am Rh negative state in antepar roger period acute August 08, 2024 10:54am Supervision of normal first acute August 08, 2024 10:54am acute September 05 3:07pm Rh negative state in antepar roger period acute September 05, 2024 3:07pm Supervision of normal first acute September 05, 2024 3:07pm acute September 19 8:24am Rh negative state in antepar roger period acute September 19, 2024 8:24am Supervision of normal first acute September 19, 2024 8:24am acute October 03, 2024 10:05am Rh negative state in antepar roger period acute October 03, 2024 10 :05am Supervision of normal first acute October 03, 2024 10 :05am acute October 17, 2024 10:00am Rh negative state in antepar roger period acute October 17, 2024 1 0:00am Supervision of normal first acute October 17, 2024 1 0:00am acute October 29, 2024 8:26am Rh negative state in antepar roger period acute October 29, 2024 8 :26am Supervision of normal first acute October 29, 2024 8 :26am acute November 14 8:48am Rh negative state in antepar roger period acute 2024 8:48am Supervision of normal first acute 2024 8:48am Positive GBS test acute November 202024 3:30pm acute November 20 3:30pm Rh negative state in antepar roger period acute November 20, 2024 3:30pm Supervision of normal first acute November 20, 2024 3:30pm Uterine size-date discrepanc y, third trimester acute November 20, 2024 3:30pm [facility] Work Phone: 1(259) 856-443303-14-2025 Evaluation note* Diagnosis Onset Date Resolution Status Admit Date acute August 08 10:54am Rh negative state in antepar roger period acute August 08, 2024 10:54am Supervision of normal first acute August 08, 2024 10:54am acute September 05 3:07pm Rh negative state in antepar roger period acute September 05, 2024 3:07pm Supervision of normal first acute September 05, 2024 3:07pm acute September 19 8:24am Rh negative state in antepar roger period acute September 19, 2024 8:24am Supervision of normal first acute September 19, 2024 8:24am acute October 03, 2024 10:05am Rh negative state in antepar roger period acute October 03, 2024 10 :05am Supervision of normal first acute October 03, 2024 10 :05am acute October 17, 2024 10:00am Rh negative state in antepar roger period acute October 17, 2024 1 0:00am Supervision of normal first acute October 17, 2024 1 0:00am acute October 29, 2024 8:26am Rh negative state in antepar roger period acute October 29, 2024 8 :26am Supervision of normal first acute October 29, 2024 8 :26am acute November 14 8:48am Rh negative state in antepar roger period acute 2024 8:48am Supervision of normal first acute 2024 8:48am Positive GBS test acute November 202024 3:30pm acute November 20 3:30pm Rh negative state in antepar roger period acute November 20, 2024 3:30pm Supervision of normal first acute November 20, 2024 3:30pm Uterine size-date discrepanc y, third trimester acute November 20, 2024 3:30pm Positive GBS test acute November 212024 3:28pm acute November 21 3:28pm Rh negative state in antepar roger period acute November 21, 2024 3:28pm Supervision of normal first acute November 21, 2024 3:28pm Uterine size-date discrepanc y, third trimester acute November 21, 2024 3:28pm Positive GBS test acute November 2:42pm acute November 27, 2024 2:42pm Rh negative state in antepar roger period acute November 27, 2024 2 :42pm Supervision of normal first acute November 27, 2024 2 :42pm Uterine size-date discrepanc y, third trimester acute November 27, 2024 2 :42pm [facility] Work Phone: 1(237) 793-109903-03-2025 Radiology Diagnostic study note [facility] Imaging Services [address] [place] [address] OB Anatomy w/ Transvaginal MR#: [id number] Acct: [id number] Name: SEAN MATOS Rep #: [id number] : 2000 F 23 From: Ekta Madsen MD PCP: Care Physician,No Primary Status: REG CLI Study:OB Anatomy w/ Transvaginal Date of Exam : 07/28/24 Exam# [id number] Ordering Dr: Faith Lui DO PROCEDURE: OB ANATOMY W/ TRANSVAGINAL REASON FOR EXAM: Cervical and/anatomy COMPARISON: None. FINDINGS Number: 1 Position: Breech active during the exam Placental Position: Posterior, grade 0, marginal cord insertion 1.8 cm from the edge Placental Abnormalities: None. DIMENSIONS: Biparietal Diameter: 4.95 cm/21 weeks 0 days Head Circumference: 18.94 cm/21 weeks 2 days Abdominal Circumference: 17.16 cm/22 weeks 1 day Femur Length: 3.32 cm/20 weeks 3 days ESTIMATED WEIGHT: 418 g ESTIMATED WEIGHT PERCENTILE (24+ weeks): 89 % ESTIMATED GESTATIONAL AGE: Baseline: 20 weeks 3 days By Ultrasound: 21 weeks 0 days ESTIMATED DATE OF DELIVERY: Baseline: 12/12/2024 By Ultrasound: 12/08/2024 BIOPHYSICAL ASSESSMENT: Amniotic Fluid Volume: Subjectively normal. Amniotic Fluid Index: (8-24 cm normal range) Cardiac Motion: 138 (average) Trunk and Limb Motion: Present. MATERNAL ANATOMY: Adnexa: Both maternal ovaries are visualized and unremarkable. Cervical Length (if measured): 3.1 cm and closed ANATOMY: Spine: Cervical, thoracic, lumbar and sacrum sub visualized Cerebellum: Visualized. Cisterna Magna: Visualized, 0.42 cm. Lateral Ventricles: Visualized, 0.57 cm Choroid Plexus: Visualized. Face/orbits: Visualized Nose/lip: Visualized Profile: Visualized Heart: Normal four-chamber view, visualized. Stomach: Visualized. Diaphragm: Visualized Abdominal wall: Visualized Kidneys: Visualized. Bladder: Visualized. Cord insertion: Visualized Umbilical Cord: Three vessel cord. Visualized Extremities: Upper and lower visualized US/OB Anatomy w/ Transvaginal IMPRESSION: Single live intrauterine corresponding to 21 weeks 0 days. UNREMARKABLE ANATOMIC SURVEY. Reading Location: [facility] CC: Dr. Faith Moreland, DO; No Primary Care Physician ~ Clerical Clerk: Signed [facility]02-12-2025 Evaluation note* Diagnosis Onset Date Resolution Status Admit Date acute July 09, 2024 8:26am Rh negative state in antepartum period acute July 09, 2024 8:26am Supervision of normal first acute July 09 8:26am acute August 08 10:54am Rh negative state in antepartum period acute August 08 10:54am Supervision of normal first acute August 08, 2024 10:54am acute September 05 3:07pm Rh negative state in antepartum period acute September 05 3:07pm Supervision of normal first acute September 05, 2024 3:07pm acute September 19 8:24am Rh negative state in antepartum period acute September 19 8:24am Supervision of normal first acute September 19, 2024 8:24am acute October 03, 2024 10:05am Rh negative state in antepartum period acute October 03, 2024 10:05am Supervision of normal first acute October 03, 2024 10 :05am acute October 17, 2024 10:00am Rh negative state in antepartum period acute October 17, 2024 10:00am Supervision of normal first acute October 17, 2024 1 0:00am acute October 29, 2024 8:26am Rh negative state in antepartum period acute October 29, 2024 8:26am Supervision of normal first acute October 29, 2024 8 :26am [facility] Work Phone: 1(261) 252-730512-12-2024 NotePap Smear Specimen AdequacyDecember 2023 12:59amComment.Satisfactory for evaluation. No endocervical component is identified.An endocervical component is not commonly seen in the patient.[facility] A#[id number] Health Fairfield HospitalComment on above: Satisfactory for evaluation. No endocervical component is identified.An endocervical component is not commonly seen in the patient.05-08-2024 Evaluation note* Diagnosis Onset Date Resolution Status Admit Date acute May 08, 2024 11:00am Rh negative state in antepartum period acute May 08, 2024 11:00am Supervision of normal first acute May 08, 024 11:00am acute June 11, 2024 8:44am Rh negative state in antepartum period acute June 11, 2024 8:44am Supervision of normal first acute June 11 8:44am acute July 09, 2024 8:26am Rh negative state in antepartum period acute July 09, 2024 8:26am Supervision of normal first acute July 09 025 8:26am acute August 08 10:54am Rh negative state in antepartum period acute August 08 10:54am Supervision of normal first acute August 08, 2024 10:54am [facility] Work Phone: Progress note Author Zulay Ruby [facility] Note Date/Time 2024 9:32 am [facility] [address] [place] [address], [address] [place] [address] OFFICE VISIT Date of Service: 11/14/24 MR#: [id number] Acct: [id number] Name: SEAN MATOS Rep #: [id number] : 2000 Provider: Dr. Narayan Ruby MD Age/Sex: 24/F [place] [facility] [place] Status: Signed Intake Vital Signs 10/03/24 10:16 10/29/24 08:30 11/14/24 08:50 11/14/24 08:55 Height 5 ft 7 in 5 ft 7 in 5 ft 7 in 5 ft 7 in Weight: 155 lb 8 oz BMI 24.3 BP 123/82 H Intake Visit Reasons: 36 wk ob Solution Lead Required: No Is patient in pain?: No Feel stressed/tense/nervous/anxious/difficulty sleeping: not at all Allergies No Known Allergies Allergy (Verified 11/14/24 08:50) Medications ?Medication ?Instructions ?Recorded ?Confirmed ?Type multivitamin no.47-iron fum 27 cap PO 05/02/24 5 History mg-folate no.1 1 mg-dha 300 mg capsule (PNV-DHA) Last Menstrual Period: 03/07/24 Zika: Zika virus screening: Negative : No PFSH PFSH Family History Father Heart disease, Onset Age: 51 Open heart surgery Sister Seizures, Onset Age: 18 2 seizures- unknown cause Social History adopted: No household members: spouse current occupational status: employed current occupation: [employer] current occupational exposures/hazards: No pets and animals: Yes (Avoid litterbox) pets and animals: cat(s) and dog(s) history of recent travel: Yes ( - February) out of state: Yes out of country: No sexually active: Yes Smoking Status: Never smoker alcohol intake: current alcohol intake frequency: a few times a week details: Not while . substance use type: does not use well-balanced diet: daily or most days caffeine: No eating out: rarely or never during the past year weight has: remained stable what type of physical activity do you participate in: walking and aerobics frequency: 1-2 times per week duration: 15-30 minutes/day vernon/confucianist: Mandaen seatbelt use: always do you feel safe at home: Yes additional social history: Tenzin- [employer] History 1 Elective abortions Hx Para 0 Spontaneous abortions Hx # Term Pregnancies Ectopic pregnancies Hx # Pregnancies Multiple births # of living children HPI 36 wk ob Details: SEAN MATOS is a 24 year old who presents for routine OB visit. OB Visit FLORIDALMA Calculator Estimated Delivery Date Method Current WG Current Estimate 12/12/24 LMP (Certain) 36w 0d Other Estimates 12/09/24 Ultrasound #1 36w 3d Expected Delivery Route/Plan Labor Preferences- CB/BF classes: yes labor support person: Tenzin labor intervention preferences: [] pain management options preferred: prefers minimal intervention. open to epidural if medically needed cut cord/dad catch: yes : yes PP control planned: [] discussed possible routes of delivery and associated risks: [] special requests: [] Specific Issue/Plans Covid status: [] Flu vaccine: [] Tdap vaccine: declined Rhogam: obtained 09/19/2024 LARC form signed: done Problem list reviewed and updated with the most current plan of care details and appropriate orders placed. Relevant counseling for the gestational age provided. Continue routine care and follow up unless otherwise noted in visit notes/problem list details Initial Weight: 135 lb Date -?-?-?-?-?-?-?-?-?--?-?-?- EGA Weight BP Urine Prot -?-?-?-?-?-?-?-?-?-?-?-?- Glucose FHR FuHt Pres Dilation -?-?-?-?-?-?-?-?-?-?-?-?- Effaced St Visit Note 05/08/24 -?-?-?-?-?-?-?-?-?-?-?-?- 8w 6d 135 lb (+0 oz) 133/80 -?-?-?-?-?-?-?-?-?-?-?-?- 176 -?-?-?-?-?-?-?-?-?-?-?-?- KW- CRL cons wit h dates. declines NIPT at this time. 06/11/24 -?-?-?-?-?-?-?-?-?-?-?-?- 13w 5d 133 lb 6 oz (-1 lb 10 oz) 129/83 Negative -?-?-?-?-?-?-?-?-?-?-?-?- Negative 155 -?-?-?-?-?-?-?-?-?-?-?-?- JV- CRL consiste nt with dates still. No complaints today. anatomy scan ordered. 07/09/24 -?-?-?-?-?-?-?-?-?-?-?-?- 17w 5d 138 lb 4 oz (+3 lb 4 oz) 116/78 Negative -?-?-?-?-?-?-?-?-?-?-?-?- Negative 151 -?-?-?-?-?-?-?-?-?-?-?-?- MH-No VB. Benignoin g movement. US anatomy next week 08/08/24 -?-?-?-?-?-?-?-?-?-?-?-?- 22w 0d 141 lb (+6 lb) 110/70 Negative -?-?-?-?-?-?-?-?-?-?-?-?- Negative 140 22 -?-?-?-?-?-?-?-?-?-?-?-?- SM- no vb lof go od fm no reuglar ctx 09/05/24 -?-?-?-?-?-?-?-?-?-?-?-?- 26w 0d 136 lb 4 oz (+1 lb 4 oz) 131/81 Negative -?-?-?-?-?-?-?-?-?-?-?-?- Negative 145 26 -?-?-?-?-?-?-?-?-?-?-?-?- LC- no vb/ctx/lo f. good fm. 28 week labs ordered. 09/19/24 -?-?-?-?-?-?-?-?-?-?-?-?- 28w 0d 148 lb 6 oz (+13 lb 6 oz) 119/78 Negative -?-?-?-?-?-?-?-?-?-?-?-?- 100 g/dL 135 27 -?-?-?-?-?-?-?-?-?-?-?-?- LC- no vb/ctx/lo f. good fm. labs pending. questions answered on CBE, pedi, labor standards 10/03/24 -?-?-?-?-?-?-?-?-?-?-?-?- 30w 0d 152 lb 6 oz (+17 lb 6 oz) 131/80 Negative -?-?-?-?-?-?-?-?-?-?-?-?- Negative 141 29 -?-?-?-?-?-?-?-?-?-?-?-?- JV- no lof, vagi nal bleeding, or dec fm. no complaints today. no proteinuria. asymptomatic. JV- no lof, vaginal bleeding , or dec fm. no complaints today. no proteinuria. asymptomatic. undecided about tdap. 10/17/24 -?-?-?-?-?-?-?-?-?-?-?-?- 32w 0d 151 lb 8 oz (+16 lb 8 oz) 128/77 Negative -?-?-?-?-?-?-?-?-?-?-?-?- Negative 145 31 -?-?-?-?-?-?-?-?-?-?-?-?- KW- no vb/lof/ct x. good fm. 10/29/24 -?-?-?-?-?-?-?-?-?-?-?-?- 33w 5d 151 lb 6 oz (+16 lb 6 oz) 124/80 Negative -?-?-?-?-?-?-?-?-?--?-?-?- Negative 142 32 -?-?-?-?-?-?-?-?-?-?-?-?- MH-No VB, LOF. G ood FM 11/14/24 -?-?-?-?-?-?-?-?-?-?-?-?- 36w 0d 155 lb 8 oz (+20 lb 8 oz) 123/82 Negative -?-?-?-?-?-?-?-?-?-?-?-?- Negative 140 35 Cephalic -?-?-?-?-?-?-?-?-?-?-?-?- SM- no vb lof go od fm no regular ctx gbs today laborprefereences reviewed ACOG First Trimester First Trimester: Discussed Second Trimester Second Trimester: Signs and Symptoms of Labor, Selecting a care provider, Reproductive Life Planning & Contreception, Care Planning, Depression/Anxiety and Intimate Partner Violence; Discussed Tobacco Cessation Third Trimester Third Trimester: Pain Management Plans, Labor support person(s), Immediate Larc, Circumcision preference, Signs and Symptoms of Preeclampsia, Feeding No , Education, Family Medical Leave or Disability Forms and Intimate Partner Violence Results POC Urinalysis 2 Dip (Clinic) Office Urine Glucose Negative Last Edit by Malina Harrell on 11/14/24 09:07 Office Urine Protein Negative Last Edit by Malina Harrell on 11/14/24 09:07 Coding Level of Care Code OB Routine Diagnoses Encounter for supervision of normal first in third trimester Z34.03 Trimester: third trimester 36 weeks gestation of Z3A.36 Weeks of gestation: 36 weeks Rh negative state in antepartum period O26.899; Z67.91 Assessment and Plan Assessment and Plan (1) Supervision of normal first : Status: Acute Qualifiers: Trimester: third trimester Qualified Code(s): Z34.03 - Encounter for supervision of normal first , third trimester Comment: PRR , FLORIDALMA 12/12/24, boy Tenzin (2) : Status: Acute Qualifiers: Weeks of gestation: 36 weeks Qualified Code(s): Z3A.36 - 36 weeks gestation of Comment: NIPT, ntd, & Carrier testing - declines. nl anatomy, nl glucose (3) Rh negative state in antepartum period: Status: Acute Comment: needs rhogam at 28 weeks and PRN Orders: Orders POC Urinalysis 2 Dip (Clinic) Today Culture, Group B Streptococcus Today Z34.03 - Encounter for supervision of normal first , third trimester 11/14/24 0932 <Electronically signed by Zulay haile MD> Date _ Zulay Ruby MD Cosigner Signature: Date (if applicable) CC: ~ [facility] Work Phone: Reason for referral (narrative)No reason for referral information [facility]WMer[facility] Work Phone: Chief Complaint and Reason for Visit Chief Complaint Admit Date NEW OB May 08, 2024 11:00am 13wk OB June 11, 2024 8 :44am 17 wk ob July 09, 2024 8:26am CERVICAL LENGTH, ANATOMY July 28, 2024 3:22pm 21 wk ob August 08, 2024 10: 54am Reason for Visit Admit Date May 08, 2024 11:00am Rh negative state in antepartum period D ecember 2023 11:00am Supervision of normal first De cember 2023 11:00am June 11, 2024 8 :44am Rh negative state in antepartum period J anuary 2024 8:44am Supervision of normal first Ja nuary 2024 8:44am July 09, 2024 8:26am Rh negative state in antepartum period F [facility] 2024 8:26am Supervision of normal first Fe [place] 2024 8:26am August 08, 2024 10: 54am Rh negative state in antepartum period [facility] 2024 10:54am Supervision of normal first [facility] 2024 10:54am Chief Complaint Admit Date 17 wk ob July 09, 2024 8:26am CERVICAL LENGTH, ANATOMY July 28, 2024 3:22pm 21 wk ob August 08, 2024 10: 54am 26 wk ob September 05, 2024 3:0 7pm 28 wk ob/glucose September 19, 2024 8:2 4am 30 wk ob October 03, 2024 10:05a m 32 wk ob October 17, 2024 10:00 am 34 wk ob October 29, 2024 8:26a m Reason for Visit Admit Date July 09, 2024 8:26am Rh negative state in antepartum period F [facility] 2024 8:26am Supervision of normal first Fe bruary 2024 8:26am August 08, 2024 10: 54am Rh negative state in antepartum period [facility] 2024 10:54am Supervision of normal first [facility] 2024 10:54am September 05, 2024 3:0 7pm Rh negative state in antepartum period A pril 2024 3:07pm Supervision of normal first Ap ril 2024 3:07pm September 19, 2024 8:2 4am Rh negative state in antepartum period A pri2024 8:24am Supervision of normal first Ap ril 2024 8:24am October 03, 2024 10:05a m Rh negative state in antepartum period M ay 2024 10:05am Supervision of normal first Ma y 2024 10:05am October 17, 2024 10:00 am Rh negative state in antepartum period M ay 2024 10:00am Supervision of normal first Ma y 2024 10:00am October 29, 2024 8:26a m Rh negative state in antepartum period J une 2024 8:26am Supervision of normal first Ju ne 2024 8:26am Chief Complaint Admit Date CERVICAL LENGTH, ANATOMY July 28, 2024 3:22pm 21 wk ob August 08, 2024 10: 54am 26 wk ob September 05, 2024 3:0 7pm 28 wk ob/glucose September 19, 2024 8:2 4am 30 wk ob October 03, 2024 10:05a m 32 wk ob October 17, 2024 10:00 am 34 wk ob October 29, 2024 8:26a m 36 wk ob 2024 8:48 am Reason for Visit Admit Date August 08, 2024 10: 54am Rh negative state in antepartum period M arch 2024 10:54am Supervision of normal first Ma rch 2024 10:54am September 05, 2024 3:0 7pm Rh negative state in antepartum period A pril 2024 3:07pm Supervision of normal first Ap ril 2024 3:07pm September 19, 2024 8:2 4am Rh negative state in antepartum period A pril 2024 8:24am Supervision of normal first Ap ril 2024 8:24am October 03, 2024 10:05a m Rh negative state in antepartum period M ay 2024 10:05am Supervision of normal first Ma y 2024 10:05am October 17, 2024 10:00 am Rh negative state in antepartum period M ay 2024 10:00am Supervision of normal first Ma y 2024 10:00am October 29, 2024 8:26a m Rh negative state in antepartum period J une 2024 8:26am Supervision of normal first Ju ne 2024 8:26am 2024 8:48 am Rh negative state in antepartum period J une 2024 8:48am Supervision of normal first Ju ne 2024 8:48am Chief Complaint Admit Date CERVICAL LENGTH, ANATOMY July 28, 2024 3:22pm 21 wk ob August 08, 2024 10: 54am 26 wk ob September 05, 2024 3:0 7pm 28 wk ob/glucose September 19, 2024 8:2 4am 30 wk ob October 03, 2024 10:05a m 32 wk ob October 17, 2024 10:00 am 34 wk ob October 29, 2024 8:26a m 36 wk ob 2024 8:48 am 37 wk ob November 20, 2024 3:30 pm Reason for Visit Admit Date August 08, 2024 10: 54am Rh negative state in antepartum period M arch 2024 10:54am Supervision of normal first Ma [facility] 2024 10:54am September 05, 2024 3:0 7pm Rh negative state in antepartum period A pril 2024 3:07pm Supervision of normal first Ap ril 2024 3:07pm September 19, 2024 8:2 4am Rh negative state in antepartum period A pril 2024 8:24am Supervision of normal first Ap ril 2024 8:24am October 03, 2024 10:05a m Rh negative state in antepartum period M ay 2024 10:05am Supervision of normal first Ma y 2024 10:05am October 17, 2024 10:00 am Rh negative state in antepartum period M ay 2024 10:00am Supervision of normal first Ma y 2024 10:00am October 29, 2024 8:26a m Rh negative state in antepartum period J [facility] 2024 8:26am Supervision of normal first Ju ne 2024 8:26am 2024 8:48 am Rh negative state in antepartum period J [facility] 2024 8:48am Supervision of normal first Ju nm 2024 8:48am Positive GBS test November 20, 2024 3:30 pm November 20, 2024 3:30 pm Rh negative state in antepartum period J [facility] 2024 3:30pm Supervision of normal first Ju nm 2024 3:30pm Uterine size-date discrepancy, third tri mester November 20, 2024 3:30pm Chief Complaint Admit Date CERVICAL LENGTH, ANATOMY July 28, 2024 3:22pm 21 wk ob August 08, 2024 10: 54am 26 wk ob September 05, 2024 3:0 7pm 28 wk ob/glucose September 19, 2024 8:2 4am 30 wk ob October 03, 2024 10:05a m 32 wk ob October 17, 2024 10:00 am 34 wk ob October 29, 2024 8:26a m 36 wk ob 2024 8:48 am 37 wk ob November 20, 2024 3:30 pm BPP November 21, 2024 3:28 pm Chief Complaint Admit Date 21 wk ob August 08, 2024 10: 54am 26 wk ob September 05, 2024 3:0 7pm 28 wk ob/glucose September 19, 2024 8:2 4am 30 wk ob October 03, 2024 10:05a m 32 wk ob October 17, 2024 10:00 am 34 wk ob October 29, 2024 8:26a m 36 wk ob 2024 8:48 am 37 wk ob November 20, 2024 3:30 pm BPP November 21, 2024 3:28 pm BPP November 21, 2024 9:44 pm 38 wk ob November 27, 2024 2:42p m Reason for Visit Admit Date August 08, 2024 10: 54am Rh negative state in antepartum period [facility] 2024 10:54am Supervision of normal first [facility] 2024 10:54am September 05, 2024 3:0 7pm Rh negative state in antepartum period A pril 2024 3:07pm Supervision of normal first Ap ril 2024 3:07pm September 19, 2024 8:2 4am Rh negative state in antepartum period A pril 2024 8:24am Supervision of normal first Ap ril 2024 8:24am October 03, 2024 10:05a m Rh negative state in antepartum period M ay 2024 10:05am Supervision of normal first Ma y 2024 10:05am October 17, 2024 10:00 am Rh negative state in antepartum period M ay 2024 10:00am Supervision of normal first Ma y 2024 10:00am October 29, 2024 8:26a m Rh negative state in antepartum period J [facility] 2024 8:26am Supervision of normal first Ju ne 2024 8:26am 2024 8:48 am Rh negative state in antepartum period J [facility] 2024 8:48am Supervision of normal first Ju ne 2024 8:48am Positive GBS test November 20, 2024 3:30 pm November 20, 2024 3:30 pm Rh negative state in antepartum period J [facility] 2024 3:30pm Supervision of normal first Ju ne 2024 3:30pm Uterine size-date discrepancy, third tri mester November 20, 2024 3:30pm Positive GBS test November 21, 2024 3:28 pm November 21, 2024 3:28 pm Rh negative state in antepartum period J [facility] 2024 3:28pm Supervision of normal first Ju ne 2024 3:28pm Uterine size-date discrepancy, third tri mester November 21, 2024 3:28pm Positive GBS test November 27, 2024 2:42p m November 27, 2024 2:42p m Rh negative state in antepartum period J hany 2024 2:42pm Supervision of normal first Ju 2024 2:42pm Uterine size-date discrepancy, third tri mester November 27, 2024 2:42pm Family History Relationship Condition Age at Onset Recorded Date/T ward father Cardiac disease 51 sister Seizure 18 Summary Purpose Advance Directives No Advanced Directives Records Found Additional Source Comments Care Teams (unrecognized sec tion and content) Team Status: Active Member Role Status Dates No Primary Care Physician Primary Care Provider Active Team Status: Inactive Member Role Status Dates Padmini Vasquez CNM Attending Provider Active S tart: May 08, 2024 End: May 08, 2024 Team Status: Inactive Member Role Status Dates Padmini Vasquez CNM Attending Provider Active S tart: May 08, 2024 End: May 08, 2024 Padmini Vasquez CNM Referring Provider Active S tart: May 08, 2024 End: May 08, 2024 Team Status: Inactive Member Role Status Dates Dr. Faith Moreland DO Attending Provider Activ e Start: June 11, 2024 End: June 11, 2024 No Primary Care Physician Primary Care Provider Active Start: June 11, 2024 End: June 11, 2024 No Primary Care Physician Referring Provider Active Start: June 11, 2024 End: June 11, 2024 Team Status: Inactive Member Role Status Dates Malina Antunez INTERNATIONAL LOGISTICS ANALYST, INTERNATIONAL LOGISTICS ANALYST-C Attending Provider Active Start: July 09, 2024 End: July 09, 2024 No Primary Care Physician Primary Care Provider Active Start: July 09, 2024 End: July 09, 2024 No Primary Care Physician Referring Provider Active Start: July 09, 2024 End: July 09, 2024 Team Status: Inactive Member Role Status Dates No Primary Care Physician Primary Care Provider Active Start: July 28, 2024 End: July 28, 2024 Dr. Faith Moreland DO Attending Provider Activ e Start: July 28, 2024 End: July 28, 2024 Dr. Faith Moreland DO Referring Provider Activ e Start: July 28, 2024 End: July 28, 2024 Team Status: Active Member Role Status Dates Dr. Zulay Ruby MD Attending Provider Active Start: August 08, 2024 No Primary Care Physician Primary Care Provider Active Start: August 08, 2024 Team Status: Inactive Member Role Status Dates Dr. Zulay Ruby MD Attending Provider Active Start: August 08, 2024 End: August 08, 2024 No Primary Care Physician Primary Care Provider Active Start: August 08, 2024 End: August 08, 2024 No Primary Care Physician Referring Provider Active Start: August 08, 2024 End: August 08, 2024 Team Status: Inactive Member Role Status Dates Hilda Hall CNM Attending Provider Active Start: September 05, 2024 End: September 05, 2024 No Primary Care Physician Primary Care Provider Active Start: September 05, 2024 End: September 05, 2024 No Primary Care Physician Referring Provider Active Start: September 05, 2024 End: September 05, 2024 Team Status: Inactive Member Role Status Dates Hilda Hall CNM Attending Provider Active Start: September 19, 2024 End: September 19, 2024 No Primary Care Physician Primary Care Provider Active Start: September 19, 2024 End: September 19, 2024 No Primary Care Physician Referring Provider Active Start: September 19, 2024 End: September 19, 2024 Team Status: Inactive Member Role Status Dates No Primary Care Physician Primary Care Provider Active Start: September 19, 2024 End: September 19, 2024 Padmini Vasquez CNM Attending Provider Active S tart: September 19, 2024 End: September 19, 2024 Padmini Vasquez CNM Referring Provider Active S tart: September 19, 2024 End: September 19, 2024 Team Status: Inactive Member Role Status Dates Dr. Faith Moreland DO Attending Provider Activ e Start: October 03, 2024 End: October 03, 2024 No Primary Care Physician Primary Care Provider Active Start: October 03, 2024 End: October 03, 2024 No Primary Care Physician Referring Provider Active Start: October 03, 2024 End: October 03, 2024 Team Status: Inactive Member Role Status Dates Padmini Vasquez CNM Attending Provider Active S tart: October 17, 2024 End: October 17, 2024 No Primary Care Physician Primary Care Provider Active Start: October 17, 2024 End: October 17, 2024 No Primary Care Physician Referring Provider Active Start: October 17, 2024 End: October 17, 2024 Team Status: Inactive Member Role Status Dates No Primary Care Physician Primary Care Provider Active Start: October 29, 2024 End: October 29, 2024 No Primary Care Physician Referring Provider Active Start: October 29, 2024 End: October 29, 2024 Malina Antunez NP, INTERNATIONAL LOGISTICS ANALYST-C Attending Provider Active Start: October 29, 2024 End: October 29, 2024 Team Status: Inactive Member Role Status Dates No Primary Care Physician Primary Care Provider Active Start: 2024 End: 2024 No Primary Care Physician Referring Provider Active Start: 2024 End: 2024 Dr. Zulay Ruby MD Attending Provider Active Start: 2024 End: 2024 Team Status: Inactive Member Role Status Dates No Primary Care Physician Primary Care Provider Active Start: 2024 End: 2024 Dr. Zulay Ruby MD Attending Provider Active Start: 2024 End: 2024 Dr. Zulay Rbuy MD Referring Provider Active Start: 2024 End: 2024 Team Status: Inactive Member Role Status Dates No Primary Care Physician Primary Care Provider Active Start: November 20, 2024 End: November 20, 2024 No Primary Care Physician Referring Provider Active Start: November 20, 2024 End: November 20, 2024 Dr. Zulay Ruby MD Attending Provider Active Start: November 20, 2024 End: November 20, 2024 Team Status: Active Member Role/Relationship Status Dates No Primary Care Physician Primary Care Provider Active Team Status: Inactive Member Role/Relationship Status Dates No Primary Care Physician Primary Care Provider Active Start: July 28, 2024 End: July 28, 2024 Dr. Faith Moreland DO Attending Provider Activ e Start: July 28, 2024 End: July 28, 2024 Dr. Faith Moreland DO Referring Provider Activ e Start: July 28, 2024 End: July 28, 2024 Team Status: Inactive Member Role/Relationship Status Dates Dr. Zulay Ruby MD Attending Provider Active Start: August 08, 2024 End: August 08, 2024 No Primary Care Physician Primary Care Provider Active Start: August 08, 2024 End: August 08, 2024 No Primary Care Physician Referring Provider Active Start: August 08, 2024 End: August 08, 2024 Team Status: Inactive Member Role/Relationship Status Dates Hilda Hall CNM Attending Provider Active Start: September 05, 2024 End: September 05, 2024 No Primary Care Physician Primary Care Provider Active Start: September 05, 2024 End: September 05, 2024 No Primary Care Physician Referring Provider Active Start: September 05, 2024 End: September 05, 2024 Team Status: Inactive Member Role/Relationship Status Dates Hilda Hall CNM Attending Provider Active Start: September 19, 2024 End: September 19, 2024 No Primary Care Physician Primary Care Provider Active Start: September 19, 2024 End: September 19, 2024 No Primary Care Physician Referring Provider Active Start: September 19, 2024 End: September 19, 2024 Team Status: Inactive Member Role/Relationship Status Dates No Primary Care Physician Primary Care Provider Active Start: September 19, 2024 End: September 19, 2024 Padmini Vasquez CNM Attending Provider Active S tart: September 19, 2024 End: September 19, 2024 Padmini Vasquez CNM Referring Provider Active S tart: September 19, 2024 End: September 19, 2024 Team Status: Inactive Member Role/Relationship Status Dates Dr. Faith Moreland DO Attending Provider Activ e Start: October 03, 2024 End: October 03, 2024 No Primary Care Physician Primary Care Provider Active Start: October 03, 2024 End: October 03, 2024 No Primary Care Physician Referring Provider Active Start: October 03, 2024 End: October 03, 2024 Team Status: Inactive Member Role/Relationship Status Dates Padmini Vasquez CNM Attending Provider Active S tart: October 17, 2024 End: October 17, 2024 No Primary Care Physician Primary Care Provider Active Start: October 17, 2024 End: October 17, 2024 No Primary Care Physician Referring Provider Active Start: October 17, 2024 End: October 17, 2024 Team Status: Inactive Member Role/Relationship Status Dates No Primary Care Physician Primary Care Provider Active Start: October 29, 2024 End: October 29, 2024 No Primary Care Physician Referring Provider Active Start: October 29, 2024 End: October 29, 2024 Malina Antunez NP, INTERNATIONAL LOGISTICS ANALYST-C Attending Provider Active Start: October 29, 2024 End: October 29, 2024 Team Status: Inactive Member Role/Relationship Status Dates No Primary Care Physician Primary Care Provider Active Start: 2024 End: 2024 No Primary Care Physician Referring Provider Active Start: 2024 End: 2024 Dr. Zulay Ruby MD Attending Provider Active Start: 2024 End: 2024 Team Status: Inactive Member Role/Relationship Status Dates No Primary Care Physician Primary Care Provider Active Start: 2024 End: 2024 Dr. Zulay Ruby MD Attending Provider Active Start: 2024 End: 2024 Dr. Zulay Ruby MD Referring Provider Active Start: 2024 End: 2024 Team Status: Inactive Member Role/Relationship Status Dates No Primary Care Physician Primary Care Provider Active Start: November 20, 2024 End: November 20, 2024 No Primary Care Physician Referring Provider Active Start: November 20, 2024 End: November 20, 2024 Dr. Zulay Ruby MD Attending Provider Active Start: November 20, 2024 End: November 20, 2024 Team Status: Inactive Member Role/Relationship Status Dates No Primary Care Physician Primary Care Provider Active Start: November 21, 2024 End: November 21, 2024 Dr. Faith Moreland DO Attending Provider Activ e Start: November 21, 2024 End: November 21, 2024 Dr. Faith Moreland DO Referring Provider Activ e Start: November 21, 2024 End: November 21, 2024 Team Status: Inactive Member Role/Relationship Status Dates Dr. Zulay Ruby MD Attending Provider Active Start: August 08, 2024 End: August 08, 2024 No Primary Care Physician Primary Care Provider Active Start: August 08, 2024 End: August 08, 2024 No Primary Care Physician Referring Provider Active Start: August 08, 2024 End: August 08, 2024 Team Status: Inactive Member Role/Relationship Status Dates Hilda Hall CNM Attending Provider Active Start: September 05, 2024 End: September 05, 2024 No Primary Care Physician Primary Care Provider Active Start: September 05, 2024 End: September 05, 2024 No Primary Care Physician Referring Provider Active Start: September 05, 2024 End: September 05, 2024 Team Status: Inactive Member Role/Relationship Status Dates Hilda Hall CNM Attending Provider Active Start: September 19, 2024 End: September 19, 2024 No Primary Care Physician Primary Care Provider Active Start: September 19, 2024 End: September 19, 2024 No Primary Care Physician Referring Provider Active Start: September 19, 2024 End: September 19, 2024 Team Status: Inactive Member Role/Relationship Status Dates No Primary Care Physician Primary Care Provider Active Start: September 19, 2024 End: September 19, 2024 Padmini Vasquez CNM Attending Provider Active S tart: September 19, 2024 End: September 19, 2024 Padmini Vasquez CNM Referring Provider Active S tart: September 19, 2024 End: September 19, 2024 Team Status: Inactive Member Role/Relationship Status Dates Dr. Faith Moreland DO Attending Provider Activ e Start: October 03, 2024 End: October 03, 2024 No Primary Care Physician Primary Care Provider Active Start: October 03, 2024 End: October 03, 2024 No Primary Care Physician Referring Provider Active Start: October 03, 2024 End: October 03, 2024 Team Status: Inactive Member Role/Relationship Status Dates Padmini Vasquez CNM Attending Provider Active S tart: October 17, 2024 End: October 17, 2024 No Primary Care Physician Primary Care Provider Active Start: October 17, 2024 End: October 17, 2024 No Primary Care Physician Referring Provider Active Start: October 17, 2024 End: October 17, 2024 Team Status: Inactive Member Role/Relationship Status Dates No Primary Care Physician Primary Care Provider Active Start: October 29, 2024 End: October 29, 2024 No Primary Care Physician Referring Provider Active Start: October 29, 2024 End: October 29, 2024 Malina Antunez NP, INTERNATIONAL LOGISTICS ANALYST-C Attending Provider Active Start: October 29, 2024 End: October 29, 2024 Team Status: Inactive Member Role/Relationship Status Dates No Primary Care Physician Primary Care Provider Active Start: 2024 End: 2024 No Primary Care Physician Referring Provider Active Start: 2024 End: 2024 Dr. Zulay Ruby MD Attending Provider Active Start: 2024 End: 2024 Team Status: Inactive Member Role/Relationship Status Dates No Primary Care Physician Primary Care Provider Active Start: 2024 End: 2024 Dr. Zulay Ruby MD Attending Provider Active Start: 2024 End: 2024 Dr. Zulay Ruby MD Referring Provider Active Start: 2024 End: 2024 Team Status: Inactive Member Role/Relationship Status Dates No Primary Care Physician Primary Care Provider Active Start: November 20, 2024 End: November 20, 2024 No Primary Care Physician Referring Provider Active Start: November 20, 2024 End: November 20, 2024 Dr. Zulay Ruby MD Attending Provider Active Start: November 20, 2024 End: November 20, 2024 Team Status: Inactive Member Role/Relationship Status Dates No Primary Care Physician Primary Care Provider Active Start: November 21, 2024 End: November 21, 2024 Dr. Faith Moreland DO Attending Provider Activ e Start: November 21, 2024 End: November 21, 2024 Dr. Faith Moreland DO Referring Provider Activ e Start: November 21, 2024 End: November 21, 2024 Team Status: Active Member Role/Relationship Status Dates No Primary Care Physician Primary Care Provider Active Start: November 21, 2024 Dr. Faith Moreland DO Attending Provider Activ e Start: November 21, 2024 Dr. Faith Moreland DO Referring Provider Activ e Start: November 21, 2024 Dr. Faith Moreland DO Other Provider Active Start: November 21, 2024 Team Status: Inactive Member Role/Relationship Status Dates No Primary Care Physician Primary Care Provider Active Start: November 27, 2024 End: November 27, 2024 No Primary Care Physician Referring Provider Active Start: November 27, 2024 End: November 27, 2024 Dr. Zulay Ruby MD Attending Provider Active Start: November 27, 2024 End: November 27, 2024 Goals (unrecognized section and content) Goals may be documented in a n alternate sectionGoals may be documented in an alternate sectionGoals may be documented in an alternate sectionGoals may be documented in an alternate sectionGoals may be documented in an alternate sectionGoals may be documented in an alternate sectionGoals may be documented in an alternate section INFORMATION SOURCE (unrecogn ized section and content) DATE CREATED AUTHOR 11/27/2024 [facility] FOR RECORDS PERTAINING TO PATIENTS WHO ARE OR HAVE BEEN ENROLLED IN A CHEMICAL DEPENDENCY/SUBSTANCEABUSE PROGRAM, SOME INFORMATION MAY BE OMITTED. This clinical summary was aggregated from multiple sources. Caution should be exercised in using it in the provision of clinical care. This summary normalizes information from multiple sources, and as a consequence, information in this document may materially change the coding, format and clinical context of patient data. In addition, data may be omitted in some cases. CLINICAL DECISIONS SHOULD BE BASED ON THE PRIMARY CLINICAL RECORDS. [employer] [facility]. provides no warranty or guarantee of the accuracy or completeness of information in this document.
--- NOTE | 2024-11-30 09:34 | HP.PCM.OB_ITS ---
HPI - General HPI Narrative SEAN MATOS, is a 24 F who presents Maternal Data Information FLORIDALMA Calculator Estimated Delivery Date Method Current WG Current Estimate 12/12/24 LMP (Certain) 38w 2d Other Estimates 12/09/24 Ultrasound #1 38w 5d PFSH PFSH Home Medications ?Medication ?Instructions ?Recorded ?Last Taken ?Type multivitamin no.47-iron fum 27 1 cap PO DAILY 05/02/24 11/28/24 History mg-folate no.1 1 mg-dha 300 mg capsule (PNV-DHA) Allergy/AdvReac Type Severity Reaction Status Date / Time No Known Allergies Allergy Verified 11/30/24 05:08 Family History Father Heart disease, Onset Age: 51 Open heart surgery Sister Seizures, Onset Age: 18 2 seizures- unknown cause Social History adopted: No household members: spouse current occupational status: employed current occupation: [employer] current occupational exposures/hazards: No pets and animals: Yes (Avoid litterbox) pets and animals: cat(s) and dog(s) history of recent travel: Yes ( - February) out of state: Yes out of country: No sexually active: Yes Smoking Status: Never smoker alcohol intake: current alcohol intake frequency: a few times a week details: Not while . 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 open to epidural if medically needed cut cord/dad catch: yes : yes PP control planned: [] discussed possible routes of delivery and associated risks: [] special requests: [] Plans Covid status: [] Flu vaccine: [] Tdap vaccine: declined Rhogam: obtained 09/19/2024 LARC form signed: done Problem list reviewed and updated with the most current plan of care details and appropriate orders placed. Relevant counseling for the gestational age provided. Continue routine care and follow up unless otherwise noted in visit notes/problem list details OB Flowsheet Initial Weight: 135 lb Date -?-?-?-?-?-?-?-?-?-?-?-?- EGA Weight BP Urine Prot -?-?-?-?-?-?-?-?-?-?-?-?- Glucose FHR FuHt Pres Dilation -?-?-?-?-?-?-?-?-?-?-?-?- Effaced St Visit Note 05/08/24 -?-?-?-?-?-?-?-?-?-?-?-?- 8w 6d 135 lb (+0 oz) 133/80 -?-?-?-?-?-?-?--?-?-?-?-?- 176 -?-?-?-?-?-?-?-?-?-?-?-?- KW- CRL cons wit h dates. declines NIPT at this time. 06/11/24 -?-?-?-?-?-?-?-?-?-?-?-?- 13w 5d 133 lb 6 oz (-1 lb 10 oz) 129/83 Negative -?-?-?-?-?-?-?-?-?-?-?-?- Negative 155 -?-?-?-?-?-?-?-?-?-?-?-?- JV- CRL consiste nt with dates still. No complaints today. anatomy scan ordered. 07/09/24 -?-?-?-?-?-?-?-?-?-?-?-?- 17w 5d 138 lb 4 oz (+3 lb 4 oz) 116/78 Negative -?-?-?-?-?-?-?-?-?-?-?-?- Negative 151 -?-?-?-?-?-?-?-?-?-?-?-?- MH-No VB. Feelin g movement. US anatomy next week 08/08/24 -?-?-?-?-?-?-?--?-?-?-?-?- 22w 0d 141 lb (+6 lb) 110/70 Negative -?-?-?-?-?-?-?-?-?-?-?-?- Negative 140 22 -?-?-?-?-?-?-?-?-?-?-?-?- SM- no vb lof go od fm no reuglar ctx 09/05/24 -?-?-?-?-?-?-?-?-?-?-?-?- 26w 0d 136 lb 4 oz (+1 lb 4 oz) 131/81 Negative -?-?-?-?-?-?-?--?-?-?-?-?- Negative 145 26 -?-?-?-?-?-?-?-?-?-?-?-?- LC- no vb/ctx/lo f. good fm. 28 week labs ordered. 09/19/24 -?-?-?-?-?-?-?-?-?-?-?-?- 28w 0d 148 lb 6 oz (+13 lb 6 oz) 119/78 Negative -?-?-?-?-?-?-?-?-?-?-?-?- 100 g/dL 135 27 -?-?-?-?-?-?-?-?-?-?-?-?- LC- no vb/ctx/lo f. good fm. labs pending. questions answered on CBE, pedi, labor standards 10/03/24 -?-?-?-?-?-?-?-?-?-?-?-?- 30w 0d 152 lb 6 oz (+17 lb 6 oz) 131/80 Negative -?-?-?-?-?-?-?-?-?-?-?-?- Negative 141 29 -?-?-?-?-?-?-?-?-?-?-?-?- JV- no lof, vagi nal bleeding, or dec fm. no complaints today. no proteinuria. asymptomatic. JV- no lof, vaginal bleeding , or dec fm. no complaints today. no proteinuria. asymptomatic. undecided about tdap. 10/17/24 -?-?-?-?-?-?-?-?-?-?-?-?- 32w 0d 151 lb 8 oz (+16 lb 8 oz) 128/77 Negative -?-?-?-?-?-?-?-?-?-?-?-?- Negative 145 31 -?-?-?-?-?-?-?-?-?-?-?-?- KW- no vb/lof/ct x. good fm. 10/29/24 -?-?-?-?-?-?-?-?-?-?-?-?- 33w 5d 151 lb 6 oz (+16 lb 6 oz) 124/80 Negative -?-?-?-?-?-?-?-?-?-?-?-?- Negative 142 32 -?-?-?-?-?-?-?-?-?-?-?-?- MH-No VB, LOF. G ood FM 11/14/24 -?-?-?-?-?-?-?-?-?-?-?-?- 36w 0d 155 lb 8 oz (+20 lb 8 oz) 123/82 Negative -?-?-?-?-?-?-?-?-?-?-?-?- Negative 140 35 Cephalic -?-?-?-?-?-?-?-?-?-?-?-?- SM- no vb lof go od fm no regular ctx gbs today laborprefereences reviewed 11/20/24 -?-?-?-?-?-?-?-?-?-?-?-?- 36w 6d 156 lb 6 oz (+21 lb 6 oz) 125/79 Negative -?-?-?-?-?-?-?-?-?--?-?-?- Negative 140 34 Cephalic -?-?-?-?-?-?-?-?-?-?-?-?- SM- gbs discusse d no vb lof good fm no regular ctx uter size date discrepancy US ordered. 11/27/24 -?-?-?-?-?-?-?-?-?-?-?-?- 37w 6d 157 lb (+22 lb) 108/76 Negative -?-?-?-?-?-?-?-?-?-?-?-?- Negative 140 36 Cephalic 1 .5 -?-?-?-?-?-?-?-?-?-?-?-?- 70 -2 SM- no vb lof good fm no reuglar ctx NST FHR Rate Baby A Baseline: 140 Variability:: Moderate Accelerations:: 15 x 15 Decelerations:: None NST Reactive:: Yes FHR Category:: Category I Uterine Activity:: q3 Vital Signs Vital Signs Vital Signs: 11/30/24 04:50 11/30/24 04:50 11/30/24 04:50 Temperature Temperature Source Temporal Pulse Rate 82 Respiratory Rate Blood Pressure 145/78 H BP Systolic 145 BP Diastolic 78 Pulse Ox 11/30/24 04:50 11/30/24 04:50 11/30/24 04:50 Temperature 97.8 F Temperature Source Pulse Rate Respiratory Rate 18 Blood Pressure BP Systolic BP Diastolic Pulse Ox 98 11/30/24 04:58 11/30/24 04:58 11/30/24 05:04 Temperature Temperature Source Pulse Rate 91 Respiratory Rate Blood Pressure 145/78 H BP Systolic 145 BP Diastolic 78 Pulse Ox 99 11/30/24 05:04 11/30/24 05:23 11/30/24 05:23 Temperature Temperature Source Pulse Rate 82 79 Respiratory Rate Blood Pressure 130/85 H BP Systolic 130 BP Diastolic 85 Pulse Ox 11/30/24 05:30 11/30/24 05:30 11/30/24 05:45 Temperature Temperature Source Pulse Rate 85 Respiratory Rate Blood Pressure 123/80 H 137/78 H BP Systolic 123 137 BP Diastolic 80 78 Pulse Ox 11/30/24 05:45 11/30/24 07:46 11/30/24 07:46 Temperature Temperature Source Pulse Rate 79 84 Respiratory Rate Blood Pressure 121/77 H BP Systolic 121 BP Diastolic 77 Pulse Ox Physical Exam Const alert, oriented x3 and no apparent distress General Appearance: cooperative, comfortable and well kempt Orientation / Consciousness: awake and oriented to person Exam Limitations: no limitations HEENT normocephalic Neck full ROM Chest inspection of chest normal Resp normal respiratory effort, normal air movement and no retractions Effort and Inspection: able to speak in complete sentences and symmetric chest movement Cardio regular rate Peripheral Pulses: pulses 2+ throughout GI normal to inspection, nondistended, normoactive bowel sounds Inspection: gravid no CVA tenderness and appearance of the vagina normal External Female Exam: normal appearance of the urethra; Negative for external lesion OB / External & Speculum: external exam normal Manual OB Exam: estimated gestational size appropriate and presentation cephalic Uterus Palpation: Negative for uterus tender Extremity normal to inspection Skin no rashes or lesions noted Neuro deep tendon reflexes 2+ bilaterally and gait normal Motor Exam: strength 5/5 throughout and clonus absent Psych Activity / Motor Behavior: appropriate eye contact Speech: normal speech Labs Labs Labs: Blood Type O NEGATIVE Antibody Screen NEGATIVE Hct 34.5 % (37-47) L Hgb 11.8 g/dL (12.0-15.0) L Obstetrics Ultrasound Syphilis Total Ab Nonreactive (Nonreactive) Rubella IgG Antibody Reactive (Nonreactive) Hep Bs Antigen Non-Reactive (Nonreactive) Hepatitis C Antibody Non-Reactive (Nonreactive) Chlamydia DNA (SYED) Negative (Negative) N.gonorrhoeae DNA (SYED) Negative (Negative) HIV 1&2 Antibody Nonreactive (Nonreactive) Glucose 1 Hr 50 gm 81 mg/dL (70-140) Assessment & Plan (1) Spontaneous onset of labor: (2) Uterine size-date discrepancy, third trimester: COMMENT: growth US ordered (3) Positive GBS test: COMMENT: PCN in labor (4) Supervision of normal first : QUALIFIERS: Trimester: third trimester Qualified Code(s): Z34.03 - Encounter for supervision of normal first , third trimester COMMENT: PRR , FLORIDALMA 12/12/24, boy Tenzin (5) : QUALIFIERS: Weeks of gestation: 37 weeks Qualified Code(s): Z3A.37 - 37 weeks gestation of COMMENT: NIPT, ntd, & Carrier testing - declines. nl anatomy, nl glucose (6) Rh negative state in antepartum period: COMMENT: needs rhogam at 28 weeks and PRN PLAN: Plan Patient presents IAL, plan expectant management for , pitocin/AROM PRN if needed. Pain management: plans epidural. GBS positive plan IV PCN. Management of any complications: none I have [facility] and made any clinically relevant updates. Dr. Owens updated on admission, exam and poc.
--- OUTSIDE RECORDS SUMMARY | 2024-11-30 09:48 | XMS RPT_ITS | CCD ---
Author Organization [facility] CliniSysd Care Team Providers Care Gas Plant Technician Name Role Phone Padmini Vasquez CNM Attending Provider [phone] Padmini Vasquez CNM Referring Provider [phone] Dr. Faith Moreland DO Attending Provider Care Physician, No Primary Primary Care Provider Unavailable Care Physician, No Primary Referring Provider Un available Malina Toro Attending Provider [phone] Faith Moreland DO Referring Provider Dr. Zulay Ruby MD Attending Provider Care Physician, No Primary Primary Care Provider Unavailable Care Physician, No Primary Referring Provider Un available Dr. Faith Moreland DO Attending Provider Hilda Hall CNM Attending Provider [phone] Padmini Vasquez CNM Attending Provider [phone] Padmini Vasquez CNM Referring Provider [phone] Care Physician, No Primary Primary Care Provider Unavailable Care Physician, No Primary Referring Provider Un available Malina Toro Attending Provider [phone] Zulay Ruby MD Referring Provider [phone] Care Physician, No Primary Primary Care Provider Unavailable Dr. Faith Moreland DO Attending Provider Dr. Faith Moreland DO Referring Provider Dr. Faith Moreland DO Other Provider [phone] Care Physician, No Primary Referring Unava ilable Care Physician, No Primary Primary Care Unava ilable Zulay Ruby Attending Unavailable Care Physician, No Primary Referring Unava ilable Care Physician, No Primary Primary Care Unava ilable Zulay Ruby Attending Unavailable Faith Moreland Referring Unavailabl e Vande Velgenaro, Faith Attending Unavailabl e Care Physician, No Primary Primary Care Unava ilable Faith Moreland Consulting Unavailabl e Care Physician, No Primary Primary Care Unava ilable Zulay Ruby Attending Unavailable Care Physician, No Primary Referring Unava ilable Faith Moreland Attending Unavailabl e Care Physician, No Primary Primary Care Unava ilable Care Physician, No Primary Referring Unava ilable Care Physician, No Primary Primary Care Unava ilable Tulio COMIC WRITER, Malina Attending Unavailable Care Physician, No Primary Referring Unava ilable Padmini Vasquez Attending Unavailable Faith Moreland Referring Unavailabl e Vande Velgenaro, Faith Attending Unavailabl e Care Physician, No Primary Primary Care Unava ilable Hilda Hall Referring Unavailable Hilda Hall Attending Unavailable Care Physician, No Primary Primary Care Unava ilable Care Physician, No Primary Primary Care Unava ilable Zulay Ruby Referring Unavailable Zulay Ruby Attending Unavailable Padmini Vasquez Referring Unavailable Padmini Vasquez Attending Unavailable Care Physician, No Primary Primary Care Unava ilable Padmini Vasquez Referring Unavailable Padmini Vasquez Attending Unavailable Faith Moreland Referring Unavailabl e Cristhiane Ej, Faith Attending Unavailabl e Care Physician, No Primary Primary Care Unava ilable Care Physician, No Primary Primary Care Unava ilable Zulay Ruby Admitting Unavailable Zulay Ruby Referring Unavailable Zulay Ruby Attending Unavailable Care Physician, No Primary Referring [...] Vasquez Attending Unavailable Care Physician, No Primary Referring Unava ilable Care Physician, No Primary Primary Care Unava ilable Tulio COMIC WRITER, Malina Attending Unavailable Care Physician, No Primary Referring Unava ilable Care Physician, No Primary Primary Care Unava ilable Zulay Ruby Attending Unavailable Medications Current Medications Medication Drug Class(es) Dates Sig (Normalized) Sig (Original) Multivit 28-Iijy-Siaahs 1-Dha (Pnv-Dha) 27 mg iron-1 mg -300 mg capsule (7 sources) Start: 05-02-2024 Multivit 71-Slvr-Uhlngk 1-Dha (Pnv-Dha) 27 mg iron-1 mg -300 [...] the cause of diseases classified elsewhere] Onset: 11-25-2024 11-17-2024 Episodic Comment on above: PCN in [...] US ordered Other complications of (2 sources) Other specified related conditions, unspecified trimester; Translations: [Other specified related conditions, unspecified trimester] Onset: 11-25-2024 Episodic Other complications of (2 sources) Uterine size-date discrepancy, third trimester; Translations: [Uterine size-date discrepancy, third trimester] Onset: 11-25-2024 Episodic Other and delivery including normal (20 sources) Normal ; Translations: [Encounter for supervision of normal first , unspecified trimester] Onset: 08-08-2024 07-09-2024 Episodic Comment on above: PRR , FLORIDALMA 5, Tenzin NIPT & Carrier testi ng - declines. nl anatomy PRR , FLORIDALMA 5, boy Tenzin NIPT, ntd, & Carrier testing - declines. nl anatomy, nl glucose Residual codes; unclassified (2 sources) Unspecified blood type, Rh negative; Translations: [Unspecified blood type, Rh negative] Onset: 11-25-2024 Episodic Residual codes; unclassified (1 source) 37 weeks gestation of ; Translations: [37 weeks gestation of ] Onset: 11-27-2024 Episodic Residual codes; unclassified (2 sources) 36 weeks gestation of ; Translations: [36 weeks gestation of ] Onset: 11-21-2024 Episodic Residual codes; unclassified (1 [...] Test Name Value Interpretation Reference Range Facility Bridge Attacher Office Visit Reporton 11-27-2024 Bridge Attacher Office Visit Report [facility] [address], [address] [place] [address] OFFICE VISIT Date of Service: 11/27/24 MR#: [id number] Acct: [id number] Name: SEAN MATOS Rep #: [id number] : 2000 Provider: Dr. Zulay lehman MD Age/Sex: 24/F Location: [facility] [place] Status: Signed Intake Vital Signs 10/17/24 10:03 11/21/24 15:44 11/27/24 14:46 11/27/24 14:49 Height 5 ft 7 in 5 ft 8 in 5 ft 8 in 5 ft 8 in Weight: 157 lb BMI 23.8 BP 108/76 Intake Visit Reasons: 38 wk ob It Architecture Analyst Required: No Is patient in pain?: No Feel stressed/tense/nervo us/anxious/difficult y sleeping: not at all Allergies No Known Allergies Allergy (Verified 11/27/24 14:45) Medications ???Medication ???Instructions ???Recorded ???Confirmed ???Type multivitamin no.47-iron fum 27 1 cap PO 05/02/24 11/27/24 History mg-folate no.1 1 mg-dha 300 mg capsule (PNV-DHA) Last Menstrual Period: 03/07/24 Zika: Zika virus screening: Negative : No PFSH PFSH Family History Father Heart disease, Onset Age: 51 Open heart surgery Sister Seizures, Onset Age: 18 2 seizures- unknown cause Social History adopted: No household members: spouse current occupational status: employed current occupation: [employer] current occupational exposures/hazards: No pets and animals: [...] 1-2 times per week duration: 15-30 minutes/day vernon/cheondoism: Yarsanism seatbelt use: always do you feel safe at home: Yes 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 -???-???-???-???-??? -???-???- Negative 140 22 -???-? (more content not included)... Normal [facility] OB Limited With [employer]ometric[facility] 11-21-2024 OB Limited With Biometrics [facility] [address] [place] [address] OB Limited With Biometrics MR#: [id number] Acct: [id number] Name: SEAN MATOS Rep #: [id number] : 2000 F 24 From: Jaime Brantley MD PCP: Care Physician,No Primary Status: DEP CLI Study: OB Limited With Biometrics Date of Exam: 11/21 Exam# [id number] Ordering Dr: Zulay Ruby EXAM: US Second [...] single live intrauterine as above. Reading Location: [facility] CC: Dr. Zulay Ruby MD; No Primary Care Physician Basket Mender: Signed Normal [facility] Laboratory - Chemistry and C hemistry - challengeOrdered By: Zulay Ruby on 11-20-2024 Glucose Ql (U) Negative [facility] Laboratory - UrinalysisOrder ed By: Zulay Ruby on 11-20-2024 Protein Ql (U) Negative [facility] Bridge Attacher Office Visit Reporton 11-20-2024 Bridge Attacher Office Visit Report [facility] [address], [address] [place] [address] OFFICE VISIT Date of Service: 11/20/24 MR#: [id number] Acct: [id number] Name: SEAN MATOS Rep #: [id number] : 2000 Provider: Dr. Zulay lehman MD Age/Sex: 24/F Location: [facility] [place] Status: Signed Intake Vital Signs 10/03/24 10:16 11/14/24 08:55 11/20/24 15:37 Height 5 ft 7 in 5 ft 7 in 5 ft 7 in Weight: 156 lb 6 oz BMI 24.5 BP 125/79 H Intake Visit Reasons: 37 wk ob It Architecture Analyst Required: No Is patient in pain?: No [...] spouse current occupational status: employed current occupation: [employer] current occupational exposures/hazards: No pets and animals: [...] 1-2 times per week duration: 15-30 minutes/day vernon/cheondoism: Yarsanism seatbelt use: always do you feel safe at home: Yes 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 Normal [facility] Rule out Beta Strep (Grp. B) on 11-18-2024 QUE Rule out Beta Strep (Grp. B) 11/16 SUB CAMP. Streptococcus group B Amount Growth Growth Streptococcus group B: REACTION Ampicillin Islt HONORIO <=0.25 Cefotaxime Islt HONORIO <=0.12 S cefTRIAXone Islt HONORIO <=0.12 S Clindamycin Islt HONORIO >=1 R Erythromycin Islt HONORIO >=8 R Linezolid Islt HONORIO <=2 S Vancomycin Islt HONORIO 0.5 S Normal [facility] Comment on above: Performed By: #### M 100.1890 #### [facility] Laboratory [facility] [place], [address] Laboratory - Chemistry and C hemistry - challengeOrdered By: Zulay Ruby on 2024 Glucose Ql (U) Negative [facility] Laboratory - UrinalysisOrder ed By: Zulya Ruby on 2024 Protein Ql (U) Negative [facility] Bridge Attacher Office Visit Reporton 2024 Bridge Attacher Office Visit Report [facility] [address], [address] [place] [address] OFFICE VISIT Date of Service: 11/14/24 MR#: [id number] Acct: [id number] Name: SEAN MATOS Rep #: [id number] : 2000 Provider: Dr. Zulay lehman MD Age/Sex: 24/F Location: [facility] [place] Status: Signed Intake Vital Signs 10/03/24 10:16 10/29/24 08:30 11/14/24 08:50 11/14/24 08:55 Height 5 ft 7 in 5 ft 7 in 5 ft 7 in 5 ft 7 in Weight: 155 lb 8 oz BMI 24.3 BP 123/82 H Intake Visit Reasons: 36 wk ob It Architecture Analyst Required: No Is patient in pain?: No [...] spouse current occupational status: employed current occupation: [employer] current occupational exposures/hazards: No pets and animals: [...] 1-2 times per week duration: 15-30 minutes/day vernon/cheondoism: Yarsanism seatbelt use: always do you feel safe at home: Yes 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 Normal [facility] Laboratory - Chemistry and C hemistry - challengeOrdered By: Malina Antunez on 10-29-2024 Glucose Ql (U) Negative [facility] Laboratory - UrinalysisOrder ed By: Malian Antunez on 10-29-2024 Protein Ql (U) Negative [facility] Bridge Attacher Office Visit Reporton 10-29-2024 Bridge Attacher Office Visit Report [facility] [address], [address] [place] [address] OFFICE VISIT Date of Service: 10/29/24 MR#: [id number] Acct: [id number] Name: SEAN MATOS Rep #: [id number] : 2000 Provider: JULIAN campos Age/Sex: 23/F Location: [facility] [place] Status: Signed Intake Vital Signs 09/19/24 08:31 10/17/24 10:03 10/29/24 08:30 Height 5 ft 7 in 5 ft 7 in 5 ft 7 in Weight: 151 lb 6 oz BMI 23.7 BP 124/80 H Intake Visit Reasons: 34 wk ob Chief Complaint: 34 Week OB It Architecture Analyst Required: No Is patient in pain?: No [...] spouse current occupational status: employed current occupation: [employer] current occupational exposures/hazards: No pets and animals: [...] 1-2 times per week duration: 15-30 minutes/day vernon/cheondoism: Yarsanism seatbelt use: always do you feel safe at home: Yes 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 -? (more content not included)... Normal [facility] Laboratory - Chemistry and C hemistry - challengeOrdered By: Padmini Vasquez on 10-17-2024 Glucose Ql (U) Negative [facility] Laboratory - UrinalysisOrder ed By: Padmini Vasquez on 10-17-2024 Protein Ql (U) Negative [facility] Bridge Attacher Office Visit Reporton 10-17-2024 Bridge Attacher Office Visit Report [facility] [address], [address] [place] [address] OFFICE VISIT Date of Service: 10/17/24 MR#: [id number] Acct: [id number] Name: SEAN MATOS Rep #: [id number] : 2000 Provider: CRISS Awad ams Age/Sex: 23/F Location: [facility] [place] Status: Signed Intake Vital Signs 10/03/24 10:16 10/17/24 10:03 Height 5 ft 7 in 5 ft 7 in Weight: 151 lb 8 oz BMI 23.7 BP 128/77 H Intake Visit Reasons: 32 wk ob Chief Complaint: 32wk OB It Architecture Analyst Required: No Is patient in pain?: No [...] spouse current occupational status: employed current occupation: [employer] current occupational exposures/hazards: No pets and animals: [...] 1-2 times per week duration: 15-30 minutes/day vernon/cheondoism: Yarsanism seatbelt use: always do you feel safe at home: Yes 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 History 1 Elective abortions Hx Para 0 [...] labor support person: Tenzin, potentially having a oncology nurse labor intervention preferences: [] pain management options [...] -???-???-???-???-??? -???-???- (more content not included)... Normal [facility] Laboratory - Chemistry and C hemistry - challengeOrdered By: Faith Pagan on 10-03-2024 Glucose Ql (U) Negative [facility] Laboratory - UrinalysisOrder ed By: Faith Pagan on 10-03-2024 Protein Ql (U) Negative [facility] Bridge Attacher Office Visit Reporton 10-03-2024 Bridge Attacher Office Visit Report [facility] [address], [address] [place] [address] OFFICE VISIT Date of Service: 10/03/24 MR#: [id number] Acct: [id number] Name: SAEN MATOS Rep #: [id number] : 2000 Provider: Dr. Faith Wood DO Age/Sex: 23/F Location: [facility] Status: Signed Intake Vital Signs 09/19/24 08:31 10/03/24 10:16 10/03/24 10:16 Height 5 ft 7 in 5 ft 7 in 5 ft 7 in Weight: 152 lb 6 oz BMI 23.8 BP 131/80 H Intake Visit Reasons: 30 wk ob It Architecture Analyst Required: No Is patient in pain?: No [...] spouse current occupational status: employed current occupation: [employer] current occupational exposures/hazards: No pets and animals: [...] 1-2 times per week duration: 15-30 minutes/day vernon/cheondoism: Yarsanism seatbelt use: always do you feel safe at home: Yes 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 History 1 Elective abortions Hx Para 0 [...] labor support person: Tenzin, potentially having a oncology nurse labor intervention preferences: [] pain management options [...] -???-???-???-???-??? -???-???-? (more content not included)... Normal [facility] Absolute lymphocyte countOrd ered By: Hilda Hall on 09-19-2024 Lymphocytes Auto (Unsp spec) [#/Vol] 1.57 10*3/uL 0.83-4.51 [facility] Absolute neutrophil countOrd ered By: Hilda Hall on 09-19-2024 Neutrophils (Bld) [#/Vol] 7.9 10*3/uL High 2.0-7.7 [facility] Automated lymphocyte count a s percentage of total leukocytesOrdered By: Hilda Hall on 09-19-2024 Lymphocytes/100 WBC Auto (Unsp spec) 15.1 % Low 19-41 [facility] Basophil percentageOrdered B y: Hilda Hall on 09-19-2024 Basophils/100 WBC (Bld) 0.3 % 0-1 [facility] CBC W/Diff, Automatedon 08-27 Absolute Lymph 1.57 X10 3/uL Normal 0.83-4.51 [facility] Comment on above: Performed By: #### L 501.0250, BTS, L100.0100, L3890.6006, L509.8002 #### [facility] Laboratory [address] [place], [address] Absolute Neut 7.9 X10 3/uL High 2.0-7.7 [facility] Comment on above: Performed By: #### L 501.0250, BTS, L100.0100, L3890.6006, L509.8002 #### [facility] Laboratory [address] [place], [address] Basophils/100 WBC (Bld) 0.3 % Normal 0-1 [facility] Comment on above: Performed By: #### L 501.0250, BTS, L100.0100, L3890.6006, L509.8002 #### [facility] Laboratory [address] [place], [address] Eosinophils/100 WBC (Bld) 0.4 % Normal 0-5 [facility] Comment on above: Performed By: #### L 501.0250, BTS, L100.0100, L3890.6006, L509.8002 #### [facility] Laboratory [address] [place], [address] Erythrocyte distribution width (RBC) [Ratio] 12.8 % Normal 11.6-14.6 [facility] Comment on above: Performed By: #### L 501.0250, BTS, L100.0100, L3890.6006, L509.8002 #### [facility] Laboratory [address] [place], [address] Hematocrit (Bld) [Volume fraction] 34.5 % Low 37-47 [facility] Comment on above: Performed By: #### L 501.0250, BTS, L100.0100, L3890.6006, L509.8002 #### [facility] Laboratory [address] [place], [address] Hemoglobin (Bld) [Mass/Vol] 11.8 g/dL Low 12.0-15.0 [facility] Comment on above: Performed By: #### L 501.0250, BTS, L100.0100, L3890.6006, L509.8002 #### [facility] Laboratory [address] [place], [address] IG% 2.800 High 0.0-0.9 [facility] Comment on above: Result Comment: IG% - Immature Granulocytes (promyelocytes, myelocytes and metamyelocytes) > 1% indicates that a LEFT SHIFT is Present. Performed By: #### L 501.0250, BTS, L100.0100, L3890.6006, L509.8002 #### [facility] Laboratory [address] [place], [address] Lymphocytes/100 WBC (Bld) 15.1 % Low 19-41 [facility] Comment on above: Performed By: #### L 501.0250, BTS, L100.0100, L3890.6006, L509.8002 #### [facility] Laboratory [address] [place], [address] MCH (RBC) [Entitic mass] 32.2 pg High 27.0-32.0 [facility] Comment on above: Performed By: #### L 501.0250, BTS, L100.0100, L3890.6006, L509.8002 #### [facility] Laboratory [address] [place], [address] MCHC (RBC) [Mass/Vol] 34.2 g/dL Normal 32-36 [facility] Comment on above: Performed By: #### L 501.0250, BTS, L100.0100, L3890.6006, L509.8002 #### [facility] Laboratory [address] [place], [address] MCV (RBC) [Entitic vol] 94.0 fL Normal 81-99 [facility] Comment on above: Performed By: #### L 501.0250, BTS, L100.0100, L3890.6006, L509.8002 #### [facility] Laboratory [address] [place], [address] Monocytes/100 WBC (Bld) 5.8 % Normal 0-10 [facility] Comment on above: Performed By: #### L 501.0250, BTS, L100.0100, L3890.6006, L509.8002 #### [facility] Laboratory [address] [place], [address] Neutrophils/100 WBC (Bld) 75.6 % High 47-70 [facility] Comment on above: Performed By: #### L 501.0250, BTS, L100.0100, L3890.6006, L509.8002 #### [facility] Laboratory [address] [place], [address] Nucleated RBC (Bld) [#/Vol] 0 10*3/uL Normal 0-5 [facility] Comment on above: Performed By: #### L 501.0250, BTS, L100.0100, L3890.6006, L509.8002 #### [facility] Laboratory [address] [place], [address] Platelet mean volume (Bld) [Entitic vol] 9.1 fL Normal 6.2-12.0 [facility] Comment on above: Performed By: #### L 501.0250, BTS, L100.0100, L3890.6006, L509.8002 #### [facility] Laboratory [address] [place], [address] Platelets (Bld) [#/Vol] 133 10*3/uL Low 150-450 [facility] Comment on above: Performed By: #### L 501.0250, BTS, L100.0100, L3890.6006, L509.8002 #### [facility] Laboratory [address] [place], [address] RBC (Bld) [#/Vol] 3.67 10*6/uL Low 4.2-5.4 [facility] Comment on above: Performed By: #### L 501.0250, BTS, L100.0100, L3890.6006, L509.8002 #### [facility] Laboratory [address] [place], [address] RDW SD 44.0 fl High 35.1-43.9 [facility] Comment on above: Performed By: #### L 501.0250, BTS, L100.0100, L3890.6006, L509.8002 #### [facility] Laboratory [address] [place], [address] WBC (Bld) [#/Vol] 10.4 10*3/uL Normal 4.4-11.0 [facility] Comment on above: Performed By: #### L 501.0250, BTS, L100.0100, L3890.6006, L509.8002 #### [facility] Laboratory [address] [place], [address] Eosinophil percentageOrdered By: Hilda Hall on 09-19-2024 Eosinophils/100 WBC (Bld) 0.4 % 0-5 [facility] Erythrocyte distribution wid th ratioOrdered By: Hilda Hall on 09-19-2024 Erythrocyte distribution width (RBC) [Ratio] 12.8 % 11.6-14.6 [facility] Erythrocyte distribution wid th standard deviationOrdered By: Hilda Hall on 09-19-2024 Erythrocyte distribution width (RBC) [Ratio] 44.0 fl High 35.1-43.9 [facility] Glucose Challenge Gest 1H 50 bessie 09-19-2024 GLU GEST 50g 1H 81 mg/dL Normal 70-140 [facility] Comment on above: Performed By: #### L 501.0250, BTS, L100.0100, L3890.6006, L509.8002 ####[facility] [address] [place], [address] Glucose measurement at 2 giovany rs post-dose gestational glucose tolerance testOrdered By: Hilda Hall on 09-19-2024 Glucose [Mass/Vol] 81 mg/dL 70-140 [facility] HIVon 09-19-2024 HIV Non-Reactive Normal Nonreactive [facility] Comment on above: Result Comment: Non- Reactive Reactive Repeatedly reactive samples must be confirmed according to CDC recommended confirmatory algorithms. The subresults for either HIVAG or AHIV can be used as an aid in the selection of the confirmation algorithm for reactive samples. Send out specimens with Reactive results to [facility] for confirmation. Order the HIV antibody detection and differentiation: [id number] Performed By: #### L 501.0250, BTS, L100.0100, L3890.6006, L509.8002 ####[facility] [id number] [place], [address] Hematocrit Auto (Bld) [Volum e fraction]Ordered By: Hilda Hall on 09-19-2024 Hematocrit (Bld) [Volume fraction] 34.5 % Low 37-47 [facility] Hemoglobin measurementOrdere d By: Hilda Hall on 09-19-2024 Hemoglobin (Bld) [Mass/Vol] 11.8 g/dL Low 12.0-15.0 [facility] Immature granulocytes/100 WB C Auto (Bld)Ordered By: Hilda Hall on 09-19-2024 Immature granulocytes/100 WBC (Bld) 2.800 % High 0.0-0.9 [facility] Comment on above: IG% - Immature Granu locytes (promyelocytes, myelocytes and metamyelocytes) > 1% indicates that a LEFT SHIFT is Present. Laboratory - Chemistry and C hemistry - challengeOrdered By: Hilda Hall on 09-19-2024 Glucose Ql (U) 100 g/dL [facility] Comment on above: did glucose test thi s morning Laboratory - UrinalysisOrder ed By: Hilda Hall on 09-19-2024 Protein Ql (U) Negative [facility] MCV (mean corpuscular volume ) determinationOrdered By: Hilda Hall on 09-19-2024 MCV (RBC) [Entitic vol] 94.0 fL 81-99 [facility] Mean corpuscular hemoglobin (MCH) determinationOrdered By: Hilda Hall on 09-19-2024 MCH (RBC) [Entitic mass] 32.2 pg High 27.0-32.0 [facility] Mean corpuscular hemoglobin concentration (MCHC) determinationOrdered By: Hilda Hall on 09-19-2024 MCHC (RBC) [Mass/Vol] 34.2 g/dL 32-36 [facility] Mean platelet volume determi nationOrdered By: Hilda Hall on 09-19-2024 Platelet mean volume (Bld) [Entitic vol] 9.1 fL 6.2-12.0 [facility] Monocyte percentageOrdered B y: Hilda Hall on 09-19-2024 Monocytes/100 WBC (Bld) 5.8 % 0-10 [facility] Neutrophil percentageOrdered By: Hilda Hall on 09-19-2024 Neutrophils/100 WBC (Bld) 75.6 % High 47-70 [facility] No Panel InformationOrdered By: Hilda Hall on 09-19-2024 HIV (1&2) Antibody Non-Reactive Nonreactive [facility] Comment on above: Non-ReactiveReactive Repeatedly reactive samples must be confirmed according to CDC recommended confirmatory algorithms. The subresults for either HIVAG or AHIV can be used as an aid in the selection of the confirmation algorithm for reactive samples.Send out specimens with Reactive results to [facility] for confirmation.Order the HIV antibody detection and differentiation: #[id number] Nucleated red blood cell per centageOrdered By: Hilda Hall on 09-19-2024 Nucleated RBC/100 WBC (Bld) [Ratio] 0 % 0-5 [facility] Bridge Attacher Office Visit Reporton 09-19-2024 Bridge Attacher Office Visit Report [facility] [address], [address] [place] [address] OFFICE VISIT Date of Service: 09/19/24 MR#: [id number] Acct: [id number] Name: SEAN MATOS Rep #: [id number] : 2000 Provider: CRISS fox Age/Sex: 23/F Location: [facility] [place] Status: Signed with Addenda ADDENDUM by Michelle Winslow on 09/19/24 at 0926 Office Procedure Documentation entered by Michelle Winslow 09/19/24 09:26: Injections Is this a patient provided medication?: No Office Meds RhoGAM Ultra-Filtered PLUS 1,500 unit (300 mcg) intramuscular syringe Performing Provider: Hilda Hlal CNM Performing Location: [facility] Administered by: Michelle Winslow on 09/19/24 09:24 Dose Route Admin Location Dispensed Lot Number Expiration Date NDC Man ufacturer 1,500 unit IM rt gluteus 1,500 ea [id number] 10/31/26 04278-898-92 [employer] cc: * Signed Intake Vital Signs 06/11/24 08:59 09/05/24 15:19 09/19/24 08:31 Height 5 ft 7 in 5 ft 7 in 5 ft 7 in Weight: 148 lb 6 oz BMI 23.2 BP 119/78 Intake Visit Reasons: 28 wk ob/glucose It Architecture Analyst Required: No Is patient in pain?: No [...] spouse current occupational status: employed current occupation: [employer] current occupational exposures/hazards: No pets and animals: [...] 1-2 times per week duration: 15-30 minutes/day vernon/cheondoism: Yarsanism seatbelt use: always do you feel safe at home: Yes 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 (more content not included)... Normal [facility] Platelet countOrdered By: Ana Hall on 09-19-2024 Platelets (Bld) [#/Vol] 133 10*3/uL Low 150-450 [facility] RBC Auto (Bld) [#/Vol]Ordere d By: Hilda Hall on 09-19-2024 RBC (Bld) [#/Vol] 3.67 10*6/uL Low 4.2-5.4 [facility] Syphilis Antibodieson 2024 Syphilis Abs Non-Reactive Normal Nonreactive [facility] Comment on above: Performed By: #### L 501.0250, BTS, L100.0100, L3890.6006, L509.8002 ####[facility] [address] [place], [place], [id number] Type AND Screenon 09-19-2024 Ab SCREEN GEL Negative Normal [facility] Comment on above: Order Comment: PN Performed By: #### L 501.0250, BTS, L100.0100, L3890.6006, L509.8002 ####[facility] [address] [place], [address] ABO and Rh group Nom (Bld) Blood group O Rh(D) negative Normal [facility] Comment on above: Order Comment: PN Performed By: #### L 501.0250, BTS, L100.0100, L3890.6006, L509.8002 ####[facility] [address] [place], [place], [phone] White blood cell (WBC) count Ordered By: iHlda Hall on 09-19-2024 WBC (Bld) [#/Vol] 10.4 10*3/uL 4.4-11.0 [facility] Laboratory - Chemistry and C hemistry - challengeOrdered By: Hilda Hall on 09-05-2024 Glucose Ql (U) Negative [facility] Laboratory - UrinalysisOrder ed By: Hilda Hall on 09-05-2024 Protein Ql (U) Negative [facility] Bridge Attacher Office Visit Reporton 09-05-2024 Bridge Attacher Office Visit Report [facility]'[address], [address] [place] [address] OFFICE VISIT Date of Service: 09/05/24 MR#: [id number] Acct: [id number] Name: SEAN MATOS Rep #: [id number] : 2000 Provider: CRISS fox Age/Sex: 23/F [place] [facility] [place] Status: Signed Intake Vital Signs 08/08/24 11:03 09/05/24 15:14 09/05/24 15:19 Height 5 ft 7 in 5 ft 7 in 5 ft 7 in Weight: 136 lb 4 oz BMI 21.3 BP 131/81 H Intake Visit Reasons: 26 wk ob It Architecture Analyst Required: No Is patient in pain?: No [...] spouse current occupational status: employed current occupation: [employer] current occupational exposures/hazards: No pets and animals: [...] 1-2 times per week duration: 15-30 minutes/day vernon/cheondoism: Yarsanism seatbelt use: always do you feel safe at home: Yes 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 -???-???-???-? (more content not included)... Normal [facility] Laboratory - Chemistry and C hemistry - challengeOrdered By: Zulay Ruby on 08-08-2024 Glucose Ql (U) Negative [facility] Laboratory - UrinalysisOrder ed By: Zulay Ruby on 08-08-2024 Protein Ql (U) Negative [facility] Bridge Attacher Office Visit Reporton 08-08-2024 Bridge Attacher Office Visit Report [facility]'s [address], [address] [place] [address] OFFICE VISIT Date of Service: 08/08/24 MR#: [id number] Acct: [id number] Name: SEAN MATOS Rep #: [id number] : 2000 Provider: Dr. Zulay lehman MD Age/Sex: 23/F Location: [facility] [place] Status: Signed Intake Vital Signs 07/09/24 08:29 08/08/24 10:59 08/08/24 11:03 Height 5 ft 7 in 5 ft 7 in 5 ft 7 in Weight: 141 lb BMI 22.1 BP 110/70 Intake Visit Reasons: 21 wk ob It Architecture Analyst Required: No Is patient in pain?: No [...] spouse current occupational status: employed current occupation: [employer] current occupational exposures/hazards: No pets and animals: [...] 1-2 times per week duration: 15-30 minutes/day vernon/cheondoism: Yarsanism seatbelt use: always do you feel safe at home: Yes 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 Normal [facility] OB Anatomy w/ Transvaginalon 07-28-2024 OB Anatomy w/ Transvaginal [facility] [address] [place] [address] OB Anatomy w/ Transvaginal MR#: [id number] Acct: [id number] Name: SEAN MATOS Rep #: [id number] : 2000 F 23 From: Ron Madsen MD PCP: Care Physician,No Primary Status: REG CLI Study: OB Anatomy w/ Transvaginal Date of Exam: 07/28 Exam# [id number] Ordering Dr: Faith Moreland DO PROCEDURE: OB [...] 0 days. UNREMARKABLE ANATOMIC SURVEY. Reading Location: [facility] CC: Dr. Faith Moreland, DO; No Primary Care Physician Basket Mender: Signed Normal [facility] Laboratory - Chemistry and C hemistry - challengeOrdered By: Malina Tulio on 07-09-2024 Glucose Ql (U) Negative [facility] Laboratory - UrinalysisOrder ed By: Malina Antunez on 07-09-2024 Protein Ql (U) Negative [facility] Bridge Attacher Office Visit Reporton 07-09-2024 Bridge Attacher Office Visit Report [facility]'s [address], [address] [place] [address] OFFICE VISIT Date of Service: 07/09/24 MR#: [id number] Acct: [id number] Name: SEAN MATOS Rep #: [id number] : 2000 Provider: JULIAN campos Age/Sex: 23/F Location: [facility] [place] Status: Signed Intake Vital Signs 06/11/24 08:59 07/09/24 08:29 Height 5 ft 7 in 5 ft 7 in Weight: 138 lb 4 oz BMI 21.6 BP 116/78 Intake Visit Reasons: 17 wk ob Chief Complaint: 17 Week OB It Architecture Analyst Required: No Is patient in pain?: No [...] spouse current occupational status: employed current occupation: [employer] current occupational exposures/hazards: No pets and animals: [...] 1-2 times per week duration: 15-30 minutes/day vernon/cheondoism: Yarsanism seatbelt use: always do you feel safe at home: Yes 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 US anatomy next week ACOG First Trimester First Trimester: Discussed Second Trimester Second Trimester: Signs and Symptoms of Labor, Selecting a care provider, Reproductive Life Planning Contreception, Care Planning, Depression/Anxiety and Intimate Partner Violence; Discussed Tobacco Cessation Third Trimester Third Trimester: Pain M (more content not included)... Normal [facility] Laboratory - Chemistry and C hemistry - challengeon 06-11-2024 Glucose Ql (U) Negative [facility] Laboratory - Urinalysison Protein Ql (U) Negative [facility] Bridge Attacher Office Visit Reporton 06-11-2024 Bridge Attacher Office Visit Report [facility] [address], [address] [place] [address] OFFICE VISIT Date of Service: 06/11/24 MR#: [id number] Acct: [id number] Name: SEAN MATOS Rep #: [id number] : 2000 Provider: Dr. 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 Normal [facility] PAP I-G w/rfx hrHPV-Aptimaon 05-15-2024 ADEQ Comment Normal . [facility] Comment on above: Order Comment: Aura black Comment: [id number] Comment: Source.............Cervix;EndocervixSpecimen Comment: Other..............Specimen Comment: No. of containers..01 ThinPrep Vial Result Comment: Sati sfactory for evaluation. No endocervical component is identified. An endocervical component is not commonly seen in the patient. Performed By: #### M 100.2200, L7400.0353, L7000.1800 ####[facility] [address] [place], [place], [address] COMM . Normal . [facility] Comment on above: Order Comment: Aura black Comment: [id number] Comment: Source.............Cervix;EndocervixSpecimen Comment: Other..............Specimen Comment: No. of containers..01 ThinPrep Vial Performed By: #### M 100.2200, L7400.0353, L7000.1800 ####[facility] [address] [place], [place], [id number] COMMENT Comment Normal . [facility] Comment on above: Order Comment: Speci men Comment: [id number] Comment: Source.............Cervix;EndocervixSpecimen Comment: Other..............Specimen Comment: No. of containers..01 ThinPrep Vial Result Comment: This liquid based ThinPrep(R) pap test was screened with the use of an image guided system. Performed By: #### M 100.2200, L7400.0353, L7000.1800 ####[facility] [address] [place], [address] DIAG Comment Normal . [facility] Comment on above: Order Comment: Speci men Comment: [id number] Comment: Source.............Cervix;EndocervixSpecimen Comment: Other..............Specimen Comment: No. of containers..01 ThinPrep Vial Result Comment: NEGA TIVE FOR INTRAEPITHELIAL LESION OR MALIGNANCY. Performed By: #### M 100.2200, L7400.0353, L7000.1800 ####[facility] [address] [place], [place], [address] HPV RFLX Comment Normal . [facility] Comment on above: Order Comment: Speci men Comment: [id number] Comment: Source.............Cervix;EndocervixSpecimen Comment: Other..............Specimen Comment: No. of containers..01 ThinPrep Vial Result Comment: The HPV DNA reflex criteria were not met with this specimen result therefore, no HPV testing was performed. Performed at: [address] [place] [id number] Oversize Load Pilot Escort: Lisandra Crews MD, Phone: [phone] Performed By: #### M 100.2200, L7400.0353, L7000.1800 ####[facility] [address] [place], [place], [id number] PAPSMR Comment Normal . [facility] Comment on above: Order Comment: Speci men Comment: [id number] Comment: Source.............Cervix;EndocervixSpecimen Comment: Other..............Specimen Comment: No. of containers..01 ThinPrep Vial Result Comment: The Pap smear is a screening test designed to aid in the detection of premalignant and malignant conditions of the uterine cervix. It is not a diagnostic procedure and should not be used as the sole means of detecting cervical cancer. Both false-positive and false-negative reports do occur. Performed By: #### M 100.2200, L7400.0353, L7000.1800 ####[facility] [address] [place], [place], [phone] PERFORM Comment Normal . [facility] Comment on above: Order Comment: Speci men Comment: [id number] Comment: Source.............Cervix;EndocervixSpecimen Comment: Other..............Specimen Comment: No. of containers..01 ThinPrep Vial Result Comment: Carmen Castellanos, Chemists (ASCP) Performed By: #### M 100.2200, L7400.0353, L7000.1800 ####[facility] [address] [place], [place], [address] Chlamydia/GC SYED aptimaon CHLAMY,NUC ACID Negative Normal Negative [facility] Comment on above: Performed By: #### M 100.2200, L7400.0353, L7000.1800 ####[facility] [address] [place], [address] GC BY NUC ACID Negative Normal Negative [facility] Comment on above: Result Comment: Perf ormed at: =G - [facility] [address], [place] [id number] Oversize Load Pilot Escort: Lisandra Crews MD, Phone: [phone] Performed By: #### M 100.2200, L7400.0353, L7000.1800 ####[facility] [address] [place], [address] Urine Cultureon 05-09-2024 [facility] Culture exhibits no growth. Normal [facility] Comment on above: Performed By: #### M 100.2200, L7400.0353, L7000.1800 ####[facility] [address] [place], [place], [id number] Absolute neutrophil countOrd ered By: Padmini Vasquez on 05-08-2024 Neutrophils (Bld) [#/Vol] 4.8 10*3/uL 2.0-7.7 [facility] Basophil percentageOrdered B y: Padmini Vasquez on 05-08-2024 Basophils/100 WBC (Bld) 0.4 % 0-1 [facility] C. trachomatis rRNA SYED+prob e Ql (Unsp spec)Ordered By: Pamdini Vasquez on 05-08-2024 Chlamydia DNA (SYED) Negative Negative [facility] CBC W/Diff, Automatedon 04-27 Absolute Lymph 1.50 X10 3/uL Normal 0.83-4.51 [facility] Comment on above: Performed By: #### L 3890.6005, L3890.6300, L3890.6100, L100.0100, BTS, L509.4005, L509.8000 ####[facility] [address], [address] Absolute Neut 4.8 X10 3/uL Normal 2.0-7.7 [facility] Comment on above: Performed By: #### L 3890.6005, L3890.6300, L3890.6100, L100.0100, BTS, L509.4005, L509.8000 ####[facility] [address] [place], [address] Basophils/100 WBC (Bld) 0.4 % Normal 0-1 [facility] Comment on above: Performed By: #### L 3890.6005, L3890.6300, L3890.6100, L100.0100, BTS, L509.4005, L509.8000 ####[facility] [address] [place], [address] Eosinophils/100 WBC (Bld) 0.4 % Normal 0-5 [facility] Comment on above: Performed By: #### L 3890.6005, L3890.6300, L3890.6100, L100.0100, BTS, L509.4005, L509.8000 ####[facility] [address] [place], [address] Erythrocyte distribution width (RBC) [Ratio] 12.0 % Normal 11.6-14.6 [facility] Comment on above: Performed By: #### L 3890.6005, L3890.6300, L3890.6100, L100.0100, BTS, L509.4005, L509.8000 ####[facility] [address] [place], [address] Hematocrit (Bld) [Volume fraction] 41.7 % Normal 37-47 [facility] Comment on above: Performed By: #### L 3890.6005, L3890.6300, L3890.6100, L100.0100, BTS, L509.4005, L509.8000 ####[facility] [address] [place], [address] Hemoglobin (Bld) [Mass/Vol] 13.8 g/dL Normal 12.0-15.0 [facility] Comment on above: Performed By: #### L 3890.6005, L3890.6300, L3890.6100, L100.0100, BTS, L509.4005, L509.8000 ####[facility] [address] [place], [address] IG% 0.300 Normal 0.0-0.9 [facility] Comment on above: Result Comment: IG% - Immature Granulocytes (promyelocytes, myelocytes and metamyelocytes) > 1% indicates that a LEFT SHIFT is Present. Performed By: #### L 3890.6005, L3890.6300, L3890.6100, L100.0100, BTS, L509.4005, L509.8000 ####[facility] [address] [place], [address] Lymphocytes/100 WBC (Bld) 22.0 % Normal 19-41 [facility] Comment on above: Performed By: #### L 3890.6005, L3890.6300, L3890.6100, L100.0100, BTS, L509.4005, L509.8000 ####[facility] [address] [place], [address] MCH (RBC) [Entitic mass] 29.1 pg Normal 27.0-32.0 [facility] Comment on above: Performed By: #### L 3890.6005, L3890.6300, L3890.6100, L100.0100, BTS, L509.4005, L509.8000 ####[facility] [address] [place], [address] MCHC (RBC) [Mass/Vol] 33.1 g/dL Normal 32-36 [facility] Comment on above: Performed By: #### L 3890.6005, L3890.6300, L3890.6100, L100.0100, BTS, L509.4005, L509.8000 ####[facility] [address] [place], [address] MCV (RBC) [Entitic vol] 87.8 fL Normal 81-99 [facility] Comment on above: Performed By: #### L 3890.6005, L3890.6300, L3890.6100, L100.0100, BTS, L509.4005, L509.8000 ####[facility] [address] [place], [address] Monocytes/100 WBC (Bld) 6.5 % Normal 0-10 [facility] Comment on above: Performed By: #### L 3890.6005, L3890.6300, L3890.6100, L100.0100, BTS, L509.4005, L509.8000 ####[facility] [address] [place], [address] Neutrophils/100 WBC (Bld) 70.4 % High 47-70 [facility] Comment on above: Performed By: #### L 3890.6005, L3890.6300, L3890.6100, L100.0100, BTS, L509.4005, L509.8000 ####[facility] [address] [place], [address] Nucleated RBC (Bld) [#/Vol] 0 10*3/uL Normal 0-5 [facility] Comment on above: Performed By: #### L 3890.6005, L3890.6300, L3890.6100, L100.0100, BTS, L509.4005, L509.8000 ####[facility] [address] [place], [address] Platelet mean volume (Bld) [Entitic vol] 8.8 fL Normal 6.2-12.0 [facility] Comment on above: Performed By: #### L 3890.6005, L3890.6300, L3890.6100, L100.0100, BTS, L509.4005, L509.8000 ####[facility] [address] [place], [address] Platelets (Bld) [#/Vol] 150 10*3/uL Normal 150-450 [facility] Comment on above: Performed By: #### L 3890.6005, L3890.6300, L3890.6100, L100.0100, BTS, L509.4005, L509.8000 ####[facility] [address] [place], [address] RBC (Bld) [#/Vol] 4.75 10*6/uL Normal 4.2-5.4 [facility] Comment on above: Performed By: #### L 3890.6005, L3890.6300, L3890.6100, L100.0100, BTS, L509.4005, L509.8000 ####[facility] [address] [place], [address] RDW SD 38.9 fl Normal 35.1-43.9 [facility] Comment on above: Performed By: #### L 3890.6005, L3890.6300, L3890.6100, L100.0100, BTS, L509.4005, L509.8000 ####[facility] [address] [place], [address] WBC (Bld) [#/Vol] 6.8 10*3/uL Normal 4.4-11.0 [facility] Comment on above: Performed By: #### L 3890.6005, L3890.6300, L3890.6100, L100.0100, BTS, L509.4005, L509.8000 ####[facility] [address] [place], [place], [id number] Sofa Cover Inspector Cyto stain Nom (C vx/Vag) [ID]Ordered By: Padmini Vasquez on 05-08-2024 Pap Smear Performed By Comment . [facility] Comment on above: Joslyn Castellanos, Cytot echnologist (ASCP) Cytology report Cyto stain D oc (Cvx/Vag)Ordered By: Padmini Vasquez on 05-08-2024 Thin Prep Pap Smear Comment . [facility] Comment on above: The Pap smear is a s creening test designed to aid in thedetection of premalignant and malignant conditions of theuterine cervix. It is not a diagnostic procedure andshould not be used as the sole means of detecting cervicalcancer. Both false-positive and false-negative reports dooccur. Eosinophil percentageOrdered By: Padmini Vasquez on 05-08-2024 Eosinophils/100 WBC (Bld) 0.4 % 0-5 [facility] Erythrocyte distribution wid th ratioOrdered By: Padmini Vasquez on 05-08-2024 Erythrocyte distribution width (RBC) [Ratio] 12.0 % 11.6-14.6 [facility] Erythrocyte distribution wid th standard deviationOrdered By: Padmini Vasquez on 05-08-2024 Erythrocyte distribution width (RBC) [Entitic vol] 38.9 fL 35.1-43.9 [facility] HIV - WCHon 05-08-2024 HIV Non-Reactive Normal Nonreactive [facility] Comment on above: Order Comment: Reaso n for Exam: Performed By: #### L 3890.6005, L3890.6300, L3890.6100, L100.0100, BTS, L509.4005, L509.8000 ####[facility] [id number] [place], [place], [id number] HIV 1+2 Ab+HIV1 p24 Ag IA Ql Ordered By: Padmini Vasquez on 05-08-2024 HIV (1&2) Antibody Non-Reactive Nonreactive [facility] Hematocrit Auto (Bld) [Volum e fraction]Ordered By: aPdmini Vasquez on 05-08-2024 Hematocrit (Bld) [Volume fraction] 41.7 % 37-47 [facility] Hemoglobin measurementOrdere d By: Padmini Vasquez on 05-08-2024 Hemoglobin (Bld) [Mass/Vol] 13.8 g/dL 12.0-15.0 [facility] Hepatitis B Surface Antigeno n 05-08-2024 HEP B Surf Ag Non-Reactive Normal Nonreactive [facility] Comment on above: Order Comment: Reaso n for Exam: Performed By: #### L 3890.6005, L3890.6300, L3890.6100, L100.0100, BTS, L509.4005, L509.8000 ####[facility] [id number] [place], [place], [id number] Hepatitis B surface antigen detectionOrdered By: Padmini Vasquez on 05-08-2024 Hepatitis B Surface Antigen Non-Reactive Nonreactive [facility] Hepatitis C Antibodyon 05-08 Hepatitis C AB Non-Reactive Normal Nonreactive [facility] Comment on above: Order Comment: Reaso n for Exam: Result Comment: Non Reactive: < 0.8 Equivocal: >/= 0.8 to < 1.0 Reactive: >/= 1.0 The CDC requires that a reactive/equivocal HCV antibody result be sent out for confirmation. HCV Quant by PCR testing. Performed By: #### L 3890.6005, L3890.6300, L3890.6100, L100.0100, BTS, L509.4005, L509.8000 ####[facility] [id number] [place], [place], [id number] Hepatitis C virus antibody a ssayOrdered By: Padmini Vasquez on 05-08-2024 Hepatitis C Antibody Non-Reactive Nonreactive [facility] Comment on above: Non Reactive: < 0.8 Equivocal: >/= 0.8 to < 1.0 Reactive: >/= 1.0The CDC requires that a reactive/equivocal HCV antibody result be sent out for confirmation. HCV Quant by PCR testing. Image-guided ThinPrep PapOrd ered By: Padmini Vasquez on 05-08-2024 Pap Smear Note Comment . [facility] Comment on above: This liquid based Th inPrep(R) pap test was screened withthe use of an image guided system. Image-guided liquid-based Pa pOrdered By: Padmini Vasquez on 05-08-2024 Pap Smear Diagnosis Comment . [facility] Comment on above: NEGATIVE FOR INTRAEP ITHELIAL LESION OR MALIGNANCY. Image-guided liquid-based ce rvical Pap w high-risk HPV+reflex to HPV 16+18Ordered By: Padmini Vasquez on 05-08-2024 Human Papillomavirus Screen Comment . [facility] Comment on above: The HPV DNA reflex c riteria were not met with this specimenresult therefore, no HPV testing was performed.Performed at: [facility] - [facility] [address] [id number] Director: Lisandra Crews MD, Phone: [phone] Immature granulocytes/100 WB C Auto (Bld)Ordered By: Padmini Vasquez on 05-08-2024 Immature granulocytes/100 WBC (Bld) 0.300 % 0.0-0.9 [facility] Comment on above: IG% - Immature Granu locytes (promyelocytes, myelocytes and metamyelocytes) > 1% indicates that a LEFT SHIFT is Present. L509.8000on 05-08-2024 Syphilis Abs Non-Reactive Normal [facility] Comment on above: Order Comment: Reaso n for Exam: Performed By: #### L 3890.6005, L3890.6300, L3890.6100, L100.0100, BTS, L509.4005, L509.8000 ####[facility] [id number] [place], [place], [id number] Lymphocytes Auto (Unsp spec) [#/Vol]Ordered By: Padmini Vasquez on 05-08-2024 Lymphocytes (Bld) [#/Vol] 1.50 10*3/uL 0.83-4.51 [facility] Lymphocytes/100 WBC Auto (Un sp spec)Ordered By: Padmini Vasquez on 05-08-2024 Lymphocytes/100 WBC (Bld) 22.0 % 19-41 [facility] MCV (mean corpuscular volume ) determinationOrdered By: Padmini Vasquez on 05-08-2024 MCV (RBC) [Entitic vol] 87.8 fL 81-99 [facility] Mean corpuscular hemoglobin (MCH) determinationOrdered By: Padmini Vasquez on 05-08-2024 MCH (RBC) [Entitic mass] 29.1 pg 27.0-32.0 [facility] Mean corpuscular hemoglobin concentration (MCHC) determinationOrdered By: Padmini Vasquez on 05-08-2024 MCHC (RBC) [Mass/Vol] 33.1 g/dL 32-36 [facility] Mean platelet volume determi nationOrdered By: Padmini Vasquez on 05-08-2024 Platelet mean volume (Bld) [Entitic vol] 8.8 fL 6.2-12.0 [facility] Monocyte percentageOrdered B y: Padmini Vasquez on 05-08-2024 Monocytes/100 WBC (Bld) 6.5 % 0-10 [facility] Neisseria gonorrhoeae nuclei c acid detection by amplified probe techniqueOrdered By: Padmini Vasquez on 05-08-2024 N. gonorrhoeae DNA SYED+probe Ql (Unsp spec) Negative Negative [facility] Comment on above: Performed at: =[address] [id number] Director: Lisandra Crews MD, Phone: [phone] Neutrophil percentageOrdered By: Padmini Vasquez on 05-08-2024 Neutrophils/100 WBC (Bld) 70.4 % High 47-70 [facility] Nucleated red blood cell per centageOrdered By: Padmini Vasquez on 05-08-2024 Nucleated RBC/100 WBC (Bld) [Ratio] 0 % 0-5 [facility] Bridge Attacher Office Visit Reporton 05-08-2024 Bridge Attacher Office Visit Report [facility] [address], [address] [place] [address] OFFICE VISIT Date of Service: 05/08/24 MR#: [id number] Acct: [id number] Name: SEAN MATOS Rep #: [id number] : 2000 Provider: CRISS Awad ams Age/Sex: 23/F Location: [facility] Status: Signed Intake Vital Signs 05/08/24 11:31 05/08/24 11:39 Weight: 135 lb BP 133/80 H Intake Visit Reasons: NEW OB It Architecture Analyst Required: No Is patient in pain?: No [...] No current occupational status: employed current occupation: [employer] current occupational exposures/hazards: No pets and animals: [...] 1-2 times per week duration: 15-30 minutes/day vernon/cheondoism: Yarsanism seatbelt use: always do you feel safe at home: Yes 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 Normal [facility] Platelet countOrdered By: Osmany Vasquez on 05-08-2024 Platelets (Bld) [#/Vol] 150 10*3/uL 150-450 [facility] RBC Auto (Bld) [#/Vol]Ordere d By: Padmini Vasquez on 05-08-2024 RBC (Bld) [#/Vol] 4.75 10*6/uL 4.2-5.4 [facility] Rubella IgGon 05-08-2024 Rubella IgG Reactive Normal Nonreactive [facility] Comment on above: Order Comment: Reaso n for Exam: Result Comment: Anti body Results Interpretation of Immune Status Non Reactive Presumed Non-Immune Equivocal Equivocal Reactive Presumed Immune Performed By: #### L 3890.6005, L3890.6300, L3890.6100, L100.0100, BTS, L509.4005, L509.8000 ####[facility] [id number] [place], [place], [id number] Rubella immune status IgGOrd ered By: Padmini Vasquez on 05-08-2024 Rubella IgG Antibody Reactive Nonreactive [facility] Comment on above: Antibody Results Int erpretation of Immune Status Non Reactive Presumed Non-Immune Equivocal Equivocal Reactive Presumed Immune Service comment (Unsp spec) [Interp]Ordered By: Padmini Vasquez on 05-08-2024 Pap Smear Comment (3) . . [facility] Treponema sp Ab Ql (S)Ordere d By: Padmini Vasquez on 05-08-2024 Syphilis Total Antibody Non-Reactive [facility] Type AND Screenon 05-08-2024 Ab SCREEN GEL Negative Normal [facility] Comment on above: Order Comment: PN Performed By: #### L 3890.6005, L3890.6300, L3890.6100, L100.0100, BTS, L509.4005, L509.8000 ####[facility] [id number] [place], [address] Urine cultureOrdered By: Peter Vasquez on 05-08-2024 Bacteria identified Cx Nom (U) Culture exhibits no growth. [facility] White blood cell (WBC) count Ordered By: Padmini Vasquez on 05-08-2024 WBC (Bld) [#/Vol] 6.8 10*3/uL 4.4-11.0 [facility] Vital Signs Date Time Vital Sign Value Performing Clinician Faci lity 11-27-2024 14:49-0400 Body height 172.72 cm No Primary Care Physician [facility] 11-27-2024 14:46-0400 Body mass index (BMI) [Ratio] 23.8 kg/m2 No Primary Care Physician [facility] 11-27-2024 14:46-0400 Body weight 71.21 kg No Primary Care Physician [facility] 11-27-2024 14:46-0400 Diastolic blood pressure 76 mm[Hg] No Primary Care Physician [facility] 11-27-2024 14:46-0400 Systolic blood pressure 108 mm[Hg] No Primary Care Physician [facility] 11-21-2024 15:44-0400 Body height 172.72 cm No Primary Care Physician [facility] 11-21-2024 15:44-0400 Body mass index (BMI) [Ratio] 23.8 kg/m2 No Primary Care Physician [facility] 11-21-2024 15:44-0400 Body weight 71.21 kg No Primary Care Physician [facility] 11-21-2024 15:39-0400 Body temperature 98.6 [degF] No Primary Care Physician [facility] 11-21-2024 15:39-0400 Diastolic blood pressure 71 mm[Hg] No Primary Care Physician [facility] 11-21-2024 15:39-0400 Heart rate 105 /min No Primary Care Physician [facility] 11-21-2024 15:39-0400 Respiratory rate 16 /min No Primary Care Physician [facility] 11-21-2024 15:39-0400 Systolic blood pressure 124 mm[Hg] No Primary Care Physician [facility] 11-20-2024 15:37-0400 Body height 170.18 cm No Primary Care Physician [facility] 11-20-2024 15:37-0400 Body mass index (BMI) [Ratio] 24.5 kg/m2 No Primary Care Physician [facility] 11-20-2024 15:37-0400 Body weight 70.93 kg No Primary Care Physician [facility] 11-20-2024 15:37-0400 Diastolic blood pressure 79 mm[Hg] No Primary Care Physician [facility] 11-20-2024 15:37-0400 Systolic blood pressure 125 mm[Hg] No Primary Care Physician [facility] 2024 08:55-0400 Body height 170.18 cm No Primary Care Physician [facility] 2024 08:50-0400 Body mass index (BMI) [Ratio] 24.3 kg/m2 No Primary Care Physician [facility] 2024 08:50-0400 Body weight 70.53 kg No Primary Care Physician [facility] 2024 08:50-0400 Diastolic blood pressure 82 mm[Hg] No Primary Care Physician [facility] 2024 08:50-0400 Systolic blood pressure 123 mm[Hg] No Primary Care Physician [facility] 10-29-2024 08:30-0400 Body height 170.18 cm No Primary Care Physician [facility] 10-29-2024 08:30-0400 Body mass index (BMI) [Ratio] 23.7 kg/m2 No Primary Care Physician [facility] 10-29-2024 08:30-0400 Body weight 68.66 kg No Primary Care Physician [facility] 10-29-2024 08:30-0400 Diastolic blood pressure 80 mm[Hg] No Primary Care Physician [facility] 10-29-2024 08:30-0400 Systolic blood pressure 124 mm[Hg] No Primary Care Physician [facility] 10-17-2024 10:03-0400 Body mass index (BMI) [Ratio] 23.7 kg/m2 No Primary Care Physician [facility] 10-17-2024 10:03-0400 Body weight 68.71 kg No Primary Care Physician [facility] 10-17-2024 10:03-0400 Diastolic blood pressure 77 mm[Hg] No Primary Care Physician [facility] 10-17-2024 10:03-0400 Systolic blood pressure 128 mm[Hg] No Primary Care Physician [facility] 10-03-2024 10:16-0400 Body mass index (BMI) [Ratio] 23.8 kg/m2 No Primary Care Physician [facility] 10-03-2024 10:16-0400 Body weight 69.11 kg No Primary Care Physician [facility] 10-03-2024 10:16-0400 Diastolic blood pressure 80 mm[Hg] No Primary Care Physician [facility] 10-03-2024 10:16-0400 Systolic blood pressure 131 mm[Hg] No Primary Care Physician [facility] 09-19-2024 08:31-0400 Body mass index (BMI) [Ratio] 23.2 kg/m2 No Primary Care Physician [facility] 09-19-2024 08:31-0400 Body weight 67.3 kg No Primary Care Physician [facility] 09-19-2024 08:31-0400 Diastolic blood pressure 78 mm[Hg] No Primary Care Physician [facility] 09-19-2024 08:31-0400 Systolic blood pressure 119 mm[Hg] No Primary Care Physician [facility] 09-05-2024 15:14-0400 Body mass index (BMI) [Ratio] 21.3 kg/m2 No Primary Care Physician [facility] 09-05-2024 15:14-0400 Body weight 61.8 kg No Primary Care Physician [facility] 09-05-2024 15:14-0400 Diastolic blood pressure 81 mm[Hg] No Primary Care Physician [facility] 09-05-2024 15:14-0400 Systolic blood pressure 131 mm[Hg] No Primary Care Physician [facility] 08-08-2024 11:03-0400 Body height 170.18 cm Padmini Vasquez CNM Work Phone: [facility] 08-08-2024 10:59-0400 Body mass index (BMI) [Ratio] 22.1 kg/m2 Padmini Vasquez CNM Work Phone: [facility] 08-08-2024 10:59-0400 Body weight 63.95 kg Padmini Vasquez CNM Work Phone: [facility] 08-08-2024 10:59-0400 Diastolic blood pressure 70 mm[Hg] Padmini Vasquez CNM Work Phone: [facility] 08-08-2024 10:59-0400 Systolic blood pressure 110 mm[Hg] Padmini Vasquez CNM Work Phone: [facility] 07-09-2024 08:29-0500 Body mass index (BMI) [Ratio] 21.6 kg/m2 Padmini Vasquez CNM Work Phone: [facility] 07-09-2024 08:29-0500 Body weight 62.7 kg Padmini Vasquez CNM Work Phone: [facility] 07-09-2024 08:29-0500 Diastolic blood pressure 78 mm[Hg] Padmini Vasquez CNM Work Phone: [facility] 07-09-2024 08:29-0500 Systolic blood pressure 116 mm[Hg] Padmini Vasquez CNM Work Phone: [facility] 06-11-2024 08:59-0500 Body mass index (BMI) [Ratio] 20.9 kg/m2 Padmini Vasquez CNM Work Phone: [facility] 06-11-2024 08:59-0500 Body weight 60.49 kg Padmini Vasquez CNM Work Phone: [facility] 06-11-2024 08:59-0500 Diastolic blood pressure 83 mm[Hg] Padmini Vasquez CNM Work Phone: [facility] 06-11-2024 08:59-0500 Systolic blood pressure 129 mm[Hg] Padmini Vasquez CNM Work Phone: [facility] 05-08-2024 11:39-0500 Body weight 61.23 kg Padmini Vasquez CNM Work Phone: [facility] 05-08-2024 11:31-0500 Diastolic blood pressure 80 mm[Hg] Padmini Vasquez CNM Work Phone: [facility] 05-08-2024 11:31-0500 Systolic blood pressure 133 mm[Hg] Padmini Vasquez CNM Work Phone: [facility] Encounters Encounter Date Encounter Type Care Provider Facility Start: 12-12-2024 ambulatory No Primary Car e Physician Facility:[facility] Start: 11-30-2024 ambulatory Hilda Hall Facilit y:[facility] Start: 11-27-2024 End: 11-27-[address] Zulay Ruby MD -[facility] Work Phone: Start: 11-27-2024 End: 11-27-2024 ambulatory No Primary Care Physician -[facility] Start: 11-21-2024 ambulatory Faith Marksty:[facility] Start: 11-21-2024 Non-patient / Non-visit Dr. Faith Moreland DO -[facility] Start: 11-21-2024 End: 11-21-2024 ambulatory No Primary Care Physician -[facility] Start: 11-21-2024 End: 11-21-[address] Faith Moreland DO -[facility] Work Phone: Start: 11-20-2024 End: 11-20-[address] Zulay Ruby MD -[facility] Work Phone: Start: 11-20-2024 End: 11-20-2024 ambulatory No Primary Care Physician [facility] Work Phone: Start: 2024 End: 2024 ambulatory No Primary Care Physician [facility] Work Phone: Start: 2024 End: [address] Zulay Ruby MD -[facility] Work Phone: Start: 2024 End: [address] Zulay Ruby MD -[facility] Work Phone: Start: 2024 End: 2024 ambulatory No Primary Care Physician [facility] Work Phone: Start: 2024 End: 2024 ambulatory No Primary Care Physician Facility:[facility] Start: 10-29-2024 End: 10-29-2024 Patient encounter procedure Malina JORDAN -[facility] Work Phone: Start: 10-29-2024 End: 10-29-2024 ambulatory No Primary Care Physician [facility] Work Phone: Start: 10-17-2024 End: 10-17-2024 Patient encounter procedure Padmini OAKES -[facility] Work Phone: Start: 10-17-2024 End: 10-17-2024 ambulatory No Primary Care Physician Facility:[facility] Start: 10-03-2024 End: 10-03-[address] Faith Moreland DO -[facility] Work Phone: Start: 10-03-2024 End: 10-03-2024 ambulatory No Primary Care Physician Facility:[facility] Start: 09-19-2024 End: 09-19-2024 Patient encounter procedure Hilda Hall CNM -[facility] Work Phone: Start: 09-19-2024 End: 09-19-2024 ambulatory No Primary Care Physician Facility:[facility] Start: 09-19-2024 End: 09-19-2024 ambulatory No Primary Care Physician Facility:[facility] Start: 09-05-2024 End: 09-05-2024 Patient encounter procedure Hilda Hall CNM -[facility] Work Phone: Start: 09-05-2024 End: 09-05-2024 ambulatory No Primary Care Physician Facility:[facility] Start: 08-08-2024 End: 08-08-[address] Zulay Ruby MD -[facility] Work Phone: Start: 08-08-2024 End: 08-08-2024 ambulatory No Primary Care Physician Facility:[facility] Start: 07-28-2024 End: 07-28-2024 ambulatory Padmini Vasquez CNM Work Phone: [facility] Work Phone: Start: 07-28-2024 End: 07-28-[address] Faith Moreland DO -[facility] Work Phone: Start: 07-28-2024 End: 07-28-2024 ambulatory Faith Moreland Facility:[facility] Start: 07-09-2024 End: 07-09-2024 Patient encounter procedure Malina JORDAN -[facility] Work Phone: Start: 07-09-2024 End: 07-09-2024 ambulatory No Primary Care Physician Facility:[facility] Start: 06-11-2024 End: 06-11-[address] Faith Moreland DO -[facility] Work Phone: Start: 06-11-2024 End: 06-11-2024 ambulatory Faith Moreland Facility:[facility] Start: 05-08-2024 End: 05-08-2024 Patient encounter procedure Padmini Vasquez CNM -Lab, [facility] Start: 05-08-2024 End: 05-08-2024 Patient encounter procedure Padmini Vasquez CNM -[facility] Work Phone: Start: 05-08-2024 End: 05-08-2024 ambulatory Padmini Vasquez Facility:[facility] Start: 05-08-2024 End: 05-08-2024 ambulatory Padmini Vasquez Facility:[facility] Procedures Date Procedure Procedure Detail Performing Clinician [...] Author Start: 11-21-2024 Ultrasound scan for growth [facility] Start: 11-21-2024 [facility] Start: 11-21-2024 Vital signs measurements [facility] Start: 11-21-2024 Patient discharge [facility] Patient Education Kick Counts ED False Labor OB Triage: Return to Hospital or Notify Physician if you Experience: [facility] Work Phone: Streptococcus agalac tiae [Presence] in Unspecified specimen by Organism specific culture [facility] Ultrasound scan for growth [facility] Payers Date Payer Category Payer Unknown [id number] 2024 Unknown [id number] 2024 Self-pay Unknown [id number] 2.16.8 [id number] Unknown [id number] 2.16.8 [id number] Unknown [id number] 2.16.8 40.1.157400.3.579.2.462 Unknown [id number] 2.16.8 40.1.176368.3.579.2.462 Unknown [id number] 2.16.8 40.1.386136.3.579.2.462 Unknown [id number] 2.16.8 40.1.108834.3.579.2.462 Unknown [id number] 2.16.8 40.1.320450.3.579.2.462 Unknown [id number] 2.16.8 40.1.129170.3.579.2.462 Unknown [id number] 2.16.8 40.1.950019.3.579.2.462 Unknown [id number] 2.16.8 40.1.114448.3.579.2.462 Unknown [id number] 2.16.8 40.1.138637.3.579.2.462 Unknown [id number] 2.16.8 40.1.081498.3.579.2.462 Unknown [id number] 2.16.8 40.1.023379.3.579.2.462 Unknown [id number] 2.16.8 40.1.855180.3.579.2.462 Unknown [id number] 2.16.8 40.1.640328.3.579.2.462 Unknown [id number] 2.16.8 40.1.009679.3.579.2.462 Unknown [id number] 2.16.8 40.1.465082.3.579.2.462 Unknown [id number] 2.16.8 40.1.753434.3.579.2.462 Unknown [id number] 2.16.8 40.1.649313.3.579.2.462 Unknown [id number] 2.16.8 40.1.401051.3.579.2.462 Social History Date Type Detail Facility Start: 05-02-[facility] Start: 08-08-2024 Sex Female (finding) [facility] Start: 2000 Sex Assigned At Female [facility] Clinical Notes 05-08-2024 to 11-27-2024 Note Date & Type Note Facility 11-27-2024 Progress note [facility] 11-27-2024 Progress note Note Date/Time November 27, 2024 3:10pm [facility] [address], [address] [place] [address] OFFICE VISIT Date of Service: 11/27/24 MR#: [id number] Acct: [id number] Name: SEAN MATOS Rep #: [id number] : 2000 Provider: Dr. Narayan Ruby MD Age/Sex: 24/F Location: [facility] Status: Signed Intake Vital Signs 10/17/24 10:03 11/21/24 15:44 11/27/24 14:46 11/27/24 14:49 Height 5 ft 7 in 5 ft 8 in 5 ft 8 in 5 ft 8 in Weight: 157 lb BMI 23.8 BP 108/76 Intake Visit Reasons: 38 wk ob It Architecture Analyst Required: No Is patient in pain?: No [...] spouse current occupational status: employed current occupation: [employer] current occupational exposures/hazards: No pets and animals: [...] 1-2 times per week duration: 15-30 minutes/day vernon/cheondoism: Yarsanism seatbelt use: always do you feel safe at home: Yes 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 Narayan Ruby MD Age/Sex: 24/F Location: [facility] Status: Signed Intake Vital Signs 10/03/24 10:16 11/14/24 08:55 11/20/24 15:37 Height 5 ft 7 in 5 ft 7 in 5 ft 7 in Weight: 156 lb 6 oz BMI 24.5 BP 125/79 H Intake Visit Reasons: 37 wk ob It Architecture Analyst Required: No Is patient in pain?: No [...] spouse current occupational status: employed current occupation: [employer] current occupational exposures/hazards: No pets and animals: [...] 1-2 times per week duration: 15-30 minutes/day vernon/cheondoism: Yarsanism seatbelt use: always do you feel safe at home: Yes 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 Narayan Ruby MD Age/Sex: 24/F Location: [facility] Status: Signed Intake Vital Signs 10/03/24 10:16 11/14/24 08:55 11/20/24 15:37 Height 5 ft 7 in 5 ft 7 in 5 ft 7 in Weight: 156 lb 6 oz BMI 24.5 BP 125/79 H Intake Visit Reasons: 37 wk ob It Architecture Analyst Required: No Is patient in pain?: No [...] spouse current occupational status: employed current occupation: [employer] current occupational exposures/hazards: No pets and animals: [...] 1-2 times per week duration: 15-30 minutes/day vernon/cheondoism: Yarsanism seatbelt use: always do you feel safe at home: Yes 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 Narayan Ruby MD Age/Sex: 24/F Location: [facility] Status: Signed Intake Vital Signs 10/03/24 10:16 10/29/24 08:30 11/14/24 08:50 11/14/24 08:55 Height 5 ft 7 in 5 ft 7 in 5 ft 7 in 5 ft 7 in Weight: 155 lb 8 oz BMI 24.3 BP 123/82 H Intake Visit Reasons: 36 wk ob It Architecture Analyst Required: No Is patient in pain?: No [...] spouse current occupational status: employed current occupation: [employer] current occupational exposures/hazards: No pets and animals: [...] 1-2 times per week duration: 15-30 minutes/day vernon/cheondoism: Yarsanism seatbelt use: always do you feel safe at home: Yes 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 History 1 Elective abortions Hx Para 0 [...] Cosigner Signature: Date (if applicable) CC: ~ [facility]03-14-2025 Evaluation note* Diagnosis Onset Date Resolution [...] Supervision of normal first acute 2024 8:48am [facility] Work Phone: 1(827) 661-303203-14-2025 Evaluation note* Diagnosis Onset Date Resolution Status [...] third trimester acute November 20, 2024 3:30pm [facility] Work Phone: 1([phone]) 125-172503-14-2025 Evaluation note* Diagnosis Onset Date Resolution Status [...] trimester acute November 27, 2024 2 :42pm [facility] Work Phone: 1(316) 428-965903-03-2025 Radiology Diagnostic study note [facility] Imaging Services [address] [place] [address] OB Anatomy w/ Transvaginal MR#: [id number] Acct: [id number] Name: SEAN MATOS Rep #: [id number] : 2000 F 23 From: Ekta Madsen MD PCP: Care Physician,No Primary Status: REG CLI Study:OB Anatomy w/ Transvaginal Date of Exam : 07/28/24 Exam# [id number] Ordering Dr: Faith Lui DO PROCEDURE: OB [...] Moreland, DO; No Primary Care Physician ~ Basket Mender: Signed [facility]02-12-2025 Evaluation note* Diagnosis Onset Date Resolution Status [...] first acute October 29, 2024 8 :26am [facility] Work Phone: [phone]) 563-347112-12-2024 NotePap Smear Specimen [facility] 20[facility] 12:59amComment.Satisfactory for evaluation. No endocervical component is identified.An endocervical component is not commonly seen in the patient.[facility] INTER[facility]ACED A#[id number] Pike Medical CenterComment on above: Satisfactory for evaluation. No endocervical [...] normal first acute August 08, 2024 10:54am [facility] Work Phone: Progress note Author Zulay Ruby [facility] Note Date/Time 2024 9:32 am [facility] [address] [place] [address], [address] [place] [address] OFFICE VISIT Date of Service: 11/14/24 MR#: [id number] Acct: [id number] Name: SEAN MATOS Rep #: [id number] : 2000 Provider: Dr. Narayan Ruby MD Age/Sex: 24/F Location: [facility] [place] [facility] Status: Signed Intake Vital Signs 10/03/24 10:16 10/29/24 08:30 11/14/24 08:50 11/14/24 08:55 Height 5 ft 7 in 5 ft 7 in 5 ft 7 in 5 ft 7 in Weight: 155 lb 8 oz BMI 24.3 BP 123/82 H Intake Visit Reasons: 36 wk ob It Architecture Analyst Required: No Is patient in pain?: No [...] spouse current occupational status: employed current occupation: [employer] current occupational exposures/hazards: No pets and animals: [...] 1-2 times per week duration: 15-30 minutes/day vernon/cheondoism: Yarsanism seatbelt use: always do you feel safe at home: Yes 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 2024 10:54am Supervision of normal first [facility] 2024 10:54am Chief Complaint Admit Date 17 [...] Rh negative state in antepartum period F [facility] 2024 8:26am Supervision of normal first Fe bruary 2024 8:26am August 08, 2024 10: 54am Rh negative state in antepartum period M [facility] 2024 10:54am Supervision of normal first Ma [facility] 2024 10:54am September 05, 2024 3:0 [...] 2024 10:54am Supervision of normal first Ma [facility] 2024 10:54am September 05, 2024 3:0 [...] Rh negative state in antepartum period J [facility] 2024 8:26am Supervision of normal first Ju [facility] 2024 8:26am 2024 8:48 am Rh negative state in antepartum period J [facility] 2024 8:48am Supervision of normal first [facility] 2024 8:48am Positive GBS test November 20, 2024 3:30 pm November 20, 2024 3:30 pm Rh negative state in antepartum period J [facility] 2024 3:30pm Supervision of normal first Ju [place] 2024 3:30pm Uterine size-date discrepancy, third tri [...] 54am Rh negative state in antepartum period [facility] 2024 10:54am Supervision of normal first [facility] 2024 10:54am September 05, 2024 3:0 7pm [...] Rh negative state in antepartum period J [facility] 2024 8:26am Supervision of normal first Ju [place] 2024 8:26am 2024 8:48 am Rh negative state in antepartum period J [facility] 2024 8:48am Supervision of normal first Ju [place] 2024 8:48am Positive GBS test November 20, 2024 3:30 pm November 20, 2024 3:30 pm Rh negative state in antepartum period J [facility] 2024 3:30pm Supervision of normal first Ju [place] 2024 3:30pm Uterine size-date discrepancy, third tri mester November 20, 2024 3:30pm Positive GBS test November 21, 2024 3:28 pm November 21, 2024 3:28 pm Rh negative state in antepartum period J [facility] 2024 3:28pm Supervision of normal first Ju [place] 2024 3:28pm Uterine size-date discrepancy, third tri mester November 21, 2024 3:28pm Positive GBS test November 27, 2024 2:42p m November 27, 2024 2:42p m Rh negative state in antepartum period J h[facility] 2024 2:42pm Supervision of normal first Ju 2024 2:42pm Uterine size-date discrepancy, third tri mester November 27, 2024 2:42pm Family History No Family History Records Found Relationship Condition Age at Onset Recorded Date/T [...] Inactive Member Role Status Dates Malina Antunez NP, COMIC WRITER-C Attending Provider Active Start: July 09, 2024 [...] End: October 29, 2024 Malina Antunez NP, COMIC WRITER-C Attending Provider Active Start: October 29, 2024 [...] 2024 End: October 29, 2024 Malina Antunez COMIC WRITER, COMIC WRITER-C Attending Provider Active Start: October 29, 2024 [...] End: October 29, 2024 Malina Antunez NP, COMIC WRITER-C Attending Provider Active Start: October 29, 2024 [...] ized section and content) DATE CREATED AUTHOR 11/30/2024 [facility] FOR RECORDS PERTAINING TO PATIENTS WHO ARE [...] BE BASED ON THE PRIMARY CLINICAL RECORDS. [facility] [employer] [facility]. provides no warranty or guarantee of the accuracy or completeness of information in this document.
[2024-11-30] MEDS: Lactated Ringers 1,000 ML 50 ML IV (10:15)
[2024-11-30 10:41] LABS: Hematocrit 35.7 % (37-47); Hemoglobin 12.7 g/dL (12.0-15.0); Immature Granulocytes Count 0.270 X10^3/uL (0.0-0.0); Mean Corp Hgb Conc 35.6 g/dL (32-36); Mean Corpuscular Volume 87.3 fL (81-99); Mean Platelet Vol. 9.0 fl (6.2-12.0); NRBC Flagged by Analyzer 0 % (0-5); Platelet Count 162 K/mm3 (150-450); RBC Distribution Width CV 12.4 % (11.6-14.6); RBC Distribution Width SD 40.1 fl (35.1-43.9); Red Blood Count 4.09 M/mm3 (4.2-5.4); White Blood Count 15.7 K/mm3 (4.4-11.0)
[2024-11-30 11:31] LABS: Syphilis Antibodies Nonreactive (Nonreactive)
[2024-11-30] MEDS: Penicillin G Pot 5,000,000 UNITS in 0.9% Normal Saline (100mL MB+) 100 ML 150 UNITS IV (11:50)
--- OUTSIDE RECORDS SUMMARY | 2024-11-30 11:50 | XMS RPT_ITS | CCD ---
Author Organization [facility] CliniSyil Care Team Providers Care Workers Compensation Coordinator Name Role Phone Padmini Vasquez CNM Attending Provider [phone] Padmini Vasquez CNM Referring Provider [phone] Dr. Faith Moreland DO Attending Provider Care Physician, No Primary Primary Care Provider Unavailable Care Physician, No Primary Referring Provider Un available Malina Toro Attending Provider [phone] Faith Moreland DO Referring Provider Dr. Zulay Ruby MD Attending Provider Care Physician, No Primary Primary Care Provider Unavailable Care Physician, No Primary Referring Provider Un available Dr. Faith Moreland DO Attending Provider Hilda Hall CNM Attending Provider [phone] Padmini Vasquez CNM Attending Provider [phone] Padmini Vasquez CNM Referring Provider [phone] Care Physician, No Primary Primary Care Provider Unavailable Care Physician, No Primary Referring Provider Un available Malina Toro Attending Provider [phone] Zulay Ruby MD Referring Provider Care Physician, No Primary Primary Care [...] No Primary Primary Care Unava ilable Tulio ENGINEERING ILLUSTRATOR, Malina Attending Unavailable Care Physician, No Primary [...] No Primary Primary Care Unava ilable Tulio ENGINEERING ILLUSTRATOR, Malina Attending Unavailable Care Physician, No Primary Referring Unava ilable Care Physician, No Primary Primary Care Unava ilable Zulay Ruby Attending Unavailable Medications Current Medications Medication Drug Class(es) Dates Sig (Normalized) Sig (Original) Multivit 69-Mgxy-Vzqkfk 1-Dha (Pnv-Dha) 27 mg iron-1 mg -300 mg capsule (7 sources) Start: 05-02-2024 Multivit 59-Gbex-Ibmyeg 1-Dha (Pnv-Dha) 27 mg iron-1 mg -300 [...] Test Name Value Interpretation Reference Range Facility Labor And Employment Paralegal Office Visit Reporton 11-27-2024 Labor And Employment Paralegal Office Visit Report [facility] [address], [address] [place] [address] OFFICE VISIT Date of Service: 11/27/24 MR#: [id number] Acct: [id number] Name: SEAN MATOS Rep #: [id number] : 2000 Provider: Dr. Zulay lehman MD Age/Sex: 24/F [place] [facility] [place]: Signed Intake Vital Signs 10/17/24 10:03 11/21/24 15:44 11/27/24 14:46 11/27/24 14:49 Height 5 ft 7 in 5 ft 8 in 5 ft 8 in 5 ft 8 in Weight: 157 lb BMI 23.8 BP 108/76 Intake Visit Reasons: 38 wk ob Wet Inspector Optical Glass Required: No Is patient in pain?: No [...] spouse current occupational status: employed current occupation: [employer] current occupational exposures/hazards: No pets and animals: [...] times per week duration: 15-30 minutes/day vernon/confucianist: Worship seatbelt use: always do you feel safe at home: Yes additional social history: Tenzin- Emission Technician History 1 Elective abortions Hx Para 0 [...] 22 -???-? (more content not included)... Normal [facility] OB Limited With Biometricson 11-21-2024 OB Limited With Biometrics [facility] [address] [place] [address] OB Limited With Biometrics MR#: [id number] Acct: [id number] Name: SEAN MATOS Rep #: [id number] : 2000 F 24 From: Jaime Brantley MD PCP: Care Physician,No Primary Status: DEP CLI Study: OB Limited With Biometrics Date of Exam: 11/21 Exam# [id number] Ordering Dr: Zulay Ruby EXAM: US Second [...] single live intrauterine as above. Reading Location: [facility] CC: Dr. Zulay Ruby MD; No Primary Care Physician Environmental Services Aide: Signed Normal [facility] Laboratory - Chemistry and C hemistry - challengeOrdered By: Zulay Ruby on 11-20-2024 Glucose Ql (U) Negative [facility] Laboratory - UrinalysisOrder ed By: Zulay Ruby on 11-20-2024 Protein Ql (U) Negative [facility] Labor And Employment Paralegal Office Visit Reporton 11-20-2024 Labor And Employment Paralegal Office Visit Report [facility] [address], [address] [place] [address] OFFICE VISIT Date of Service: 11/20/24 MR#: [id number] Acct: [id number] Name: SEAN MATOS Rep #: [id number] : 2000 Provider: Dr. Zulay lehman MD Age/Sex: 24/F [place] [facility] [place]: Signed Intake Vital Signs 10/03/24 10:16 11/14/24 08:55 11/20/24 15:37 Height 5 ft 7 in 5 ft 7 in 5 ft 7 in Weight: 156 lb 6 oz BMI 24.5 BP 125/79 H Intake Visit Reasons: 37 wk ob Wet Inspector Optical Glass Required: No Is patient in pain?: No [...] spouse current occupational status: employed current occupation: [employer] current occupational exposures/hazards: No pets and animals: [...] times per week duration: 15-30 minutes/day vernon/confucianist: Worship seatbelt use: always do you feel safe at home: Yes additional social history: Tenzin- Emission Technician History 1 Elective abortions Hx Para 0 [...] ctx 04 (more content not included)... Normal [facility] Rule out Beta Strep (Grp. B) on 11-18-2024 UQE Rule out Beta Strep (Grp. B) 11/16 SUB CAMP. Streptococcus group B Amount Growth Growth Streptococcus group B: REACTION Ampicillin Islt HONORIO <=0.25 Cefotaxime Islt HONORIO <=0.12 S cefTRIAXone Islt HONORIO <=0.12 S Clindamycin Islt HONORIO >=1 R Erythromycin Islt HONORIO >=8 R Linezolid Islt HONORIO <=2 S Vancomycin Islt HONORIO 0.5 S Normal [facility] Comment on above: Performed By: #### M 100.7730 #### [facility] Laboratory [facility] [place], [address] Laboratory - Chemistry and C hemistry - challengeOrdered By: Zulay Ruby on 2024 Glucose Ql (U) Negative [facility] Laboratory - UrinalysisOrder ed By: Zulay Ruby on 2024 Protein Ql (U) Negative [facility] Labor And Employment Paralegal Office Visit Reporton 2024 Labor And Employment Paralegal Office Visit Report [facility] [address], [address] [place] [address] OFFICE VISIT Date of Service: 11/14/24 MR#: [id number] Acct: [id number] Name: SEAN MATOS Rep #: [id number] : 2000 Provider: Dr. Zulay lehman MD Age/Sex: 24/F Location[place] [facility] [place]: Signed Intake Vital Signs 10/03/24 10:16 10/29/24 08:30 11/14/24 08:50 11/14/24 08:55 Height 5 ft 7 in 5 ft 7 in 5 ft 7 in 5 ft 7 in Weight: 155 lb 8 oz BMI 24.3 BP 123/82 H Intake Visit Reasons: 36 wk ob Wet Inspector Optical Glass Required: No Is patient in pain?: No [...] spouse current occupational status: employed current occupation: [employer] current occupational exposures/hazards: No pets and animals: [...] times per week duration: 15-30 minutes/day vernon/confucianist: Worship seatbelt use: always do you feel safe at home: Yes additional social history: Tenzin- Emission Technician History 1 Elective abortions Hx Para 0 [...] 22 - (more content not included)... Normal [facility] Laboratory - Chemistry and C hemistry - challengeOrdered By: Malina Antunez on 10-29-2024 Glucose Ql (U) Negative [facility] Laboratory - UrinalysisOrder ed By: Malina Antunez on 10-29-2024 Protein Ql (U) Negative [facility] Labor And Employment Paralegal Office Visit Reporton 10-29-2024 Labor And Employment Paralegal Office Visit Report [facility] [address], [address] [place] [address] OFFICE VISIT Date of Service: 10/29/24 MR#: [id number] Acct: [id number] Name: SEAN MATOS Rep #: [id number] : 2000 Provider: JULIAN campos Age/Sex: 23/F Location[place] [facility] [place]: Signed Intake Vital Signs 09/19/24 08:31 10/17/24 10:03 10/29/24 08:30 Height 5 ft 7 in 5 ft 7 in 5 ft 7 in Weight: 151 lb 6 oz BMI 23.7 BP 124/80 H Intake Visit Reasons: 34 wk ob Chief Complaint: 34 Week OB Wet Inspector Optical Glass Required: No Is patient in pain?: No [...] spouse current occupational status: employed current occupation: [employer] current occupational exposures/hazards: No pets and animals: [...] times per week duration: 15-30 minutes/day vernon/confucianist: Worship seatbelt use: always do you feel safe at home: Yes additional social history: Tenzin- Emission Technician History 1 Elective abortions Hx Para 0 [...] -???-???-???-???-??? -? (more content not included)... Normal [facility] Laboratory - Chemistry and C hemistry - challengeOrdered By: Padmini Vasquez on 10-17-2024 Glucose Ql (U) Negative [facility] Laboratory - UrinalysisOrder ed By: Padmini Vasquez on 10-17-2024 Protein Ql (U) Negative [facility] Labor And Employment Paralegal Office Visit Reporton 10-17-2024 Labor And Employment Paralegal Office Visit Report [facility] [address], [address] [place] [address] OFFICE VISIT Date of Service: 10/17/24 MR#: [id number] Acct: [id number] Name: SEAN MATOS Rep #: [id number] : 2000 Provider: CRISS Awad ams Age/Sex: 23/F Location[place] [facility] [place]: Signed Intake Vital Signs 10/03/24 10:16 10/17/24 10:03 Height 5 ft 7 in 5 ft 7 in Weight: 151 lb 8 oz BMI 23.7 BP 128/77 H Intake Visit Reasons: 32 wk ob Chief Complaint: 32wk OB Wet Inspector Optical Glass Required: No Is patient in pain?: No [...] spouse current occupational status: employed current occupation: [employer] current occupational exposures/hazards: No pets and animals: [...] times per week duration: 15-30 minutes/day vernon/confucianist: Worship seatbelt use: always do you feel safe at home: Yes additional social history: Tenzin- Emission Technician History 1 Elective abortions Hx Para 0 [...] labor support person: Tenzin, potentially having a trench digger helper labor intervention preferences: [] pain management options [...] -???-???-???-???-??? -???-???- (more content not included)... Normal [facility] Laboratory - Chemistry and C hemistry - challengeOrdered By: Faith Pagan on 10-03-2024 Glucose Ql (U) Negative [facility] Laboratory - UrinalysisOrder ed By: Faith Pagan on 10-03-2024 Protein Ql (U) Negative [facility] Labor And Employment Paralegal Office Visit Reporton 10-03-2024 Labor And Employment Paralegal Office Visit Report [facility] [address], [address] [place] [address] OFFICE VISIT Date of Service: 10/03/24 MR#: [id number] Acct: [id number] Name: SEAN MATOS Rep #: [id number] : 2000 Provider: Dr. Faith Wood DO Age/Sex: 23/F Location[place] [facility] [place] Status: Signed Intake Vital Signs 09/19/24 08:31 10/03/24 10:16 10/03/24 10:16 Height 5 ft 7 in 5 ft 7 in 5 ft 7 in Weight: 152 lb 6 oz BMI 23.8 BP 131/80 H Intake Visit Reasons: 30 wk ob Wet Inspector Optical Glass Required: No Is patient in pain?: No [...] spouse current occupational status: employed current occupation: [employer] current occupational exposures/hazards: No pets and animals: [...] times per week duration: 15-30 minutes/day vernon/confucianist: Worship seatbelt use: always do you feel safe at home: Yes additional social history: Tenzin- Emission Technician History 1 Elective abortions Hx Para 0 [...] labor support person: Tenzin, potentially having a trench digger helper labor intervention preferences: [] pain management options [...] -???-???-???-???-??? -???-???-? (more content not included)... Normal [facility] Absolute lymphocyte countOrd ered By: Hilda Hall on 09-19-2024 Lymphocytes Auto (Unsp spec) [#/Vol] 1.57 10*3/uL 0.83-4.51 [facility] Absolute neutrophil countOrd ered By: Hilda Hall on 09-19-2024 Neutrophils (Bld) [#/Vol] 7.9 10*3/uL High 2.0-7.7 [facility] Automated lymphocyte count a s percentage of total leukocytesOrdered By: Hilda Hall on 09-19-2024 Lymphocytes/100 WBC Auto (Unsp spec) 15.1 % Low 19-41 [facility] Basophil percentageOrdered B y: Hilda Hall on 09-19-2024 Basophils/100 WBC (Bld) 0.3 % 0-1 [facility] CBC W/Diff, Automatedon 08-27 Absolute Lymph 1.57 X10 3/uL Normal 0.83-4.51 [facility] Comment on above: Performed By: #### L 501.0250, BTS, L100.0100, L3890.6006, L509.8002 #### [facility] [address] [place], [address] Absolute Neut 7.9 X10 3/uL High 2.0-7.7 [facility] Comment on above: Performed By: #### L 501.0250, BTS, L100.0100, L3890.6006, L509.8002 #### [facility] [address] [place], [address] Basophils/100 WBC (Bld) 0.3 % Normal 0-1 [facility] Comment on above: Performed By: #### L 501.0250, BTS, L100.0100, L3890.6006, L509.8002 #### [facility] [address] [place], [address] Eosinophils/100 WBC (Bld) 0.4 % Normal 0-5 [facility] Comment on above: Performed By: #### L 501.0250, BTS, L100.0100, L3890.6006, L509.8002 #### [facility] [address] [place], [address] Erythrocyte distribution width (RBC) [Ratio] 12.8 % Normal 11.6-14.6 [facility] Comment on above: Performed By: #### L 501.0250, BTS, L100.0100, L3890.6006, L509.8002 #### [facility] [address] [place], [address] Hematocrit (Bld) [Volume fraction] 34.5 % Low 37-47 [facility] Comment on above: Performed By: #### L 501.0250, BTS, L100.0100, L3890.6006, L509.8002 #### [facility] [address] [place], [address] Hemoglobin (Bld) [Mass/Vol] 11.8 g/dL Low 12.0-15.0 [facility] Comment on above: Performed By: #### L 501.0250, BTS, L100.0100, L3890.6006, L509.8002 #### [facility] [address] [place], [address] IG% 2.800 High 0.0-0.9 [facility] Comment on above: Result Comment: IG% - Immature Granulocytes (promyelocytes, myelocytes and metamyelocytes) > 1% indicates that a LEFT SHIFT is Present. Performed By: #### L 501.0250, BTS, L100.0100, L3890.6006, L509.8002 #### [facility] [address] [place], [address] Lymphocytes/100 WBC (Bld) 15.1 % Low 19-41 [facility] Comment on above: Performed By: #### L 501.0250, BTS, L100.0100, L3890.6006, L509.8002 #### [facility] [address] [place], [address] MCH (RBC) [Entitic mass] 32.2 pg High 27.0-32.0 [facility] Comment on above: Performed By: #### L 501.0250, BTS, L100.0100, L3890.6006, L509.8002 #### [facility] [address] [place], [address] MCHC (RBC) [Mass/Vol] 34.2 g/dL Normal 32-36 [facility] Comment on above: Performed By: #### L 501.0250, BTS, L100.0100, L3890.6006, L509.8002 #### [facility] [address] [place], [address] MCV (RBC) [Entitic vol] 94.0 fL Normal 81-99 [facility] Comment on above: Performed By: #### L 501.0250, BTS, L100.0100, L3890.6006, L509.8002 #### [facility] [address] [place], [address] Monocytes/100 WBC (Bld) 5.8 % Normal 0-10 [facility] Comment on above: Performed By: #### L 501.0250, BTS, L100.0100, L3890.6006, L509.8002 #### [facility] [address] [place], [address] Neutrophils/100 WBC (Bld) 75.6 % High 47-70 [facility] Comment on above: Performed By: #### L 501.0250, BTS, L100.0100, L3890.6006, L509.8002 #### [facility] [address] [place], [address] Nucleated RBC (Bld) [#/Vol] 0 10*3/uL Normal 0-5 [facility] Comment on above: Performed By: #### L 501.0250, BTS, L100.0100, L3890.6006, L509.8002 #### [facility] [address] [place], [address] Platelet mean volume (Bld) [Entitic vol] 9.1 fL Normal 6.2-12.0 [facility] Comment on above: Performed By: #### L 501.0250, BTS, L100.0100, L3890.6006, L509.8002 #### [facility] [address] [place], [address] Platelets (Bld) [#/Vol] 133 10*3/uL Low 150-450 [facility] Comment on above: Performed By: #### L 501.0250, BTS, L100.0100, L3890.6006, L509.8002 #### [facility] [address] [place], [address] RBC (Bld) [#/Vol] 3.67 10*6/uL Low 4.2-5.4 [facility] Comment on above: Performed By: #### L 501.0250, BTS, L100.0100, L3890.6006, L509.8002 #### [facility] [address] [place], [address] RDW SD 44.0 fl High 35.1-43.9 [facility] Comment on above: Performed By: #### L 501.0250, BTS, L100.0100, L3890.6006, L509.8002 #### [facility] [address] [place], [address] WBC (Bld) [#/Vol] 10.4 10*3/uL Normal 4.4-11.0 [facility] Comment on above: Performed By: #### L 501.0250, BTS, L100.0100, L3890.6006, L509.8002 #### [facility] [address] [place], [address] Eosinophil percentageOrdered By: Hilda Hall on 09-19-2024 Eosinophils/100 WBC (Bld) 0.4 % 0-5 [facility] Erythrocyte distribution wid th ratioOrdered By: Hilda Hall on 09-19-2024 Erythrocyte distribution width (RBC) [Ratio] 12.8 % 11.6-14.6 [facility] Erythrocyte distribution wid th standard deviationOrdered By: Hilda Hall on 09-19-2024 Erythrocyte distribution width (RBC) [Ratio] 44.0 fl High 35.1-43.9 [facility] Glucose Challenge Gest 1H 50 bessie 09-19-2024 GLU GEST 50g 1H 81 mg/dL Normal 70-140 [facility] Comment on above: Performed By: #### L 501.0250, BTS, L100.0100, L3890.6006, L509.8002 ####[facility] [address] [place], [address] Glucose measurement at 2 giovany rs post-dose gestational glucose tolerance testOrdered By: Hilda Hall on 09-19-2024 Glucose [Mass/Vol] 81 mg/dL 70-140 [facility] HIVon 09-19-2024 HIV Non-Reactive Normal Nonreactive [facility] Comment on above: Result Comment: Non- Reactive Reactive Repeatedly reactive samples must be confirmed according to CDC recommended confirmatory algorithms. The subresults for either HIVAG or AHIV can be used as an aid in the selection of the confirmation algorithm for reactive samples. Send out specimens with Reactive results to [facility] for confirmation. Order the HIV antibody detection and differentiation: lc#[id number] Performed By: #### L 501.0250, BTS, L100.0100, L3890.6006, L509.8002 ####[facility] [address] [place], [address] Hematocrit Auto (Bld) [Volum e fraction]Ordered By: Hilda Hall on 09-19-2024 Hematocrit (Bld) [Volume fraction] 34.5 % Low 37-47 [facility] Hemoglobin measurementOrdere d By: Hilda Hall on 09-19-2024 Hemoglobin (Bld) [Mass/Vol] 11.8 g/dL Low 12.0-15.0 [facility] Immature granulocytes/100 WB C Auto (Bld)Ordered By: Hilda Hall on 09-19-2024 Immature granulocytes/100 WBC (Bld) 2.800 % High 0.0-0.9 [facility] Comment on above: IG% - Immature Granu locytes (promyelocytes, myelocytes and metamyelocytes) > 1% indicates that a LEFT SHIFT is Present. Laboratory - Chemistry and C hemistry - challengeOrdered By: Hilda Hall on 09-19-2024 Glucose Ql (U) 100 g/dL [facility] Comment on above: did glucose test thi s morning Laboratory - UrinalysisOrder ed By: Hilda Hall on 09-19-2024 Protein Ql (U) Negative [facility] MCV (mean corpuscular volume ) determinationOrdered By: Hilda Hall on 09-19-2024 MCV (RBC) [Entitic vol] 94.0 fL 81-99 [facility] Mean corpuscular hemoglobin (MCH) determinationOrdered By: Hilda Hall on 09-19-2024 MCH (RBC) [Entitic mass] 32.2 pg High 27.0-32.0 [facility] Mean corpuscular hemoglobin concentration (MCHC) determinationOrdered By: Hilda Hall on 09-19-2024 MCHC (RBC) [Mass/Vol] 34.2 g/dL 32-36 [facility] Mean platelet volume determi nationOrdered By: Hilda Hall on 09-19-2024 Platelet mean volume (Bld) [Entitic vol] 9.1 fL 6.2-12.0 [facility] Monocyte percentageOrdered B y: Hilda Hall on 09-19-2024 Monocytes/100 WBC (Bld) 5.8 % 0-10 [facility] Neutrophil percentageOrdered By: Hilda Hall on 09-19-2024 Neutrophils/100 WBC (Bld) 75.6 % High 47-70 [facility] No Panel InformationOrdered By: Hilda Hall on 09-19-2024 HIV (1&2) Antibody Non-Reactive Nonreactive [facility] Comment on above: Non-ReactiveReactive Repeatedly reactive samples must be confirmed according to CDC recommended confirmatory algorithms. The subresults for either HIVAG or AHIV can be used as an aid in the selection of the confirmation algorithm for reactive samples.Send out specimens with Reactive results to [facility] for confirmation.Order the HIV antibody detection and differentiation: #[id number] Nucleated red blood cell per centageOrdered By: Hilda Hall on 09-19-2024 Nucleated RBC/100 WBC (Bld) [Ratio] 0 % 0-5 [facility] Labor And Employment Paralegal Office Visit Reporton 09-19-2024 Labor And Employment Paralegal Office Visit Report [facility] [address], [address] [place] [address] OFFICE VISIT Date of Service: 09/19/24 MR#: [id number] Acct: [id number] Name: SEAN MATOS Rep #: [id number] : 2000 Provider: CRISS fox Age/Sex: 23/F [place] [facility] [place] Status: Signed with Addenda ADDENDUM by Michelle Winslow on 09/19/24 at 0926 Office Procedure Documentation entered by Michelle Winslow 09/19/24 09:26: Injections Is this a patient provided medication?: No Office Meds RhoGAM Ultra-Filtered PLUS 1,500 unit (300 mcg) intramuscular syringe Performing Provider: Hilda Hall CNM Performing Location: [facility] Administered by: Michelle Winslow on 09/19/24 09:24 Dose Route Admin Location Dispensed Lot Number Expiration Date NDC Man ufacturer 1,500 unit IM rt gluteus 1,500 ea [id number] 10/31/26 37774-706-75 [employer] cc: * Signed Intake Vital Signs 06/11/24 08:59 09/05/24 15:19 09/19/24 08:31 Height 5 ft 7 in 5 ft 7 in 5 ft 7 in Weight: 148 lb 6 oz BMI 23.2 BP 119/78 Intake Visit Reasons: 28 wk ob/glucose Wet Inspector Optical Glass Required: No Is patient in pain?: No [...] spouse current occupational status: employed current occupation: [employer] current occupational exposures/hazards: No pets and animals: [...] times per week duration: 15-30 minutes/day vernon/confucianist: Worship seatbelt use: always do you feel safe at home: Yes additional social history: Tenzin- Emission Technician History 1 Elective abortions Hx Para 0 [...] labor support person: Tenzin, potentially having a trench digger helper labor intervention preferences: [] pain management options [...] 155 -???-??? (more content not included)... Normal [facility] Platelet countOrdered By: Ana Hall on 09-19-2024 Platelets (Bld) [#/Vol] 133 10*3/uL Low 150-450 [facility] RBC Auto (Bld) [#/Vol]Ordere d By: Hilda Hall on 09-19-2024 RBC (Bld) [#/Vol] 3.67 10*6/uL Low 4.2-5.4 [facility] Syphilis Antibodieson 2024 Syphilis Abs Non-Reactive Normal Nonreactive [facility] Comment on above: Performed By: #### L 501.0250, BTS, L100.0100, L3890.6006, L509.8002 ####[facility] [address] [place], [place], [id number] Type AND Screenon 09-19-2024 Ab SCREEN GEL Negative Normal [facility] [facility] Comment on above: Order Comment: PN Performed By: #### L 501.0250, BTS, L100.0100, L3890.6006, L509.8002 ####[facility] [address] [place], [address] ABO and Rh group Nom (Bld) Blood group O Rh(D) negative Normal [facility] Comment on above: Order Comment: PN Performed By: #### L 501.0250, BTS, L100.0100, L3890.6006, L509.8002 ####[facility] [address] [place], [place], [id number] White blood cell (WBC) count Ordered By: Hilda Hall on 09-19-2024 WBC (Bld) [#/Vol] 10.4 10*3/uL 4.4-11.0 [facility] Laboratory - Chemistry and C hemistry - challengeOrdered By: Hilda Hall on 09-05-2024 Glucose Ql (U) Negative [facility] Laboratory - UrinalysisOrder ed By: Hilda Hall on 09-05-2024 Protein Ql (U) Negative [facility] Labor And Employment Paralegal Office Visit Reporton 09-05-2024 Labor And Employment Paralegal Office Visit Report [facility], [address] [place] [address] OFFICE VISIT Date of Service: 09/05/24 MR#: [id number] Acct: [id number] Name: SEAN MATOS Rep #: [id number] : 2000 Provider: CRISS fox Age/Sex: 23/F Location[place] [facility] [place] Status: Signed Intake Vital Signs 08/08/24 11:03 09/05/24 15:14 09/05/24 15:19 Height 5 ft 7 in 5 ft 7 in 5 ft 7 in Weight: 136 lb 4 oz BMI 21.3 BP 131/81 H Intake Visit Reasons: 26 wk ob Wet Inspector Optical Glass Required: No Is patient in pain?: No [...] spouse current occupational status: employed current occupation: [employer] current occupational exposures/hazards: No pets and animals: [...] times per week duration: 15-30 minutes/day vernon/confucianist: Worship seatbelt use: always do you feel safe at home: Yes additional social history: Tenzin- Emission Technician History 1 Elective abortions Hx Para 0 Spontaneous abortions Hx # Term Pregnancies Ectopic pregnancies Hx # Pregnancies Multiple births # of living children HPI 26 wk ob Details: SEAN MATOS is a 23 year old who presents for routine OB visit. OB Visit FOLRIDALMA Calculator Estimated Delivery Date Method Current WG [...] -???-???-???-???-??? -???-???-???-? (more content not included)... Normal [facility] Laboratory - Chemistry and C hemistry - challengeOrdered By: Zulay Ruby on 08-08-2024 Glucose Ql (U) Negative [facility] Laboratory - UrinalysisOrder ed By: Zulay Ruby on 08-08-2024 Protein Ql (U) Negative [facility] Labor And Employment Paralegal Office Visit Reporton 08-08-2024 Labor And Employment Paralegal Office Visit Report [facility] [address], [address] [place] [address] OFFICE VISIT Date of Service: 08/08/24 MR#: [id number] Acct: [id number] Name: SEAN MATOS Rep #: [id number] : 2000 Provider: Dr. Zulay lehman MD Age/Sex: 23/F [place] [facility] [place]: Signed Intake Vital Signs 07/09/24 08:29 08/08/24 10:59 08/08/24 11:03 Height 5 ft 7 in 5 ft 7 in 5 ft 7 in Weight: 141 lb BMI 22.1 BP 110/70 Intake Visit Reasons: 21 wk ob Wet Inspector Optical Glass Required: No Is patient in pain?: No [...] spouse current occupational status: employed current occupation: [employer] current occupational exposures/hazards: No pets and animals: [...] times per week duration: 15-30 minutes/day vernon/confucianist: Worship seatbelt use: always do you feel safe at home: Yes additional social history: Tenzin- Emission Technician History 1 Elective abortions Hx Para 0 [...] First T (more content not included)... Normal [facility] OB Anatomy w/ Transvaginalon 07-28-2024 OB Anatomy w/ Transvaginal [facility] [address] [place] [address] OB Anatomy w/ Transvaginal MR#: [id number] Acct: [id number] Name: SEAN MATOS Rep #: [id number] : 2000 F 23 From: Ron Madsen MD PCP: Care Physician,No Primary Status: REG CLI Study: OB Anatomy w/ Transvaginal Date of Exam: 07/28 Exam# [id number] Ordering Dr: Faith Moreland DO PROCEDURE: OB [...] 0 days. UNREMARKABLE ANATOMIC SURVEY. Reading Location: [facility] CC: Dr. Faith Moreland, DO; No Primary Care Physician Environmental Services Aide: Signed Normal [facility] Laboratory - Chemistry and C hemistry - challengeOrdered By: Malina Tulio on 07-09-2024 Glucose Ql (U) Negative [facility] Laboratory - UrinalysisOrder ed By: Malina Antunez on 07-09-2024 Protein Ql (U) Negative [facility] Labor And Employment Paralegal Office Visit Reporton 07-09-2024 Labor And Employment Paralegal Office Visit Report [facility] [address], [address] [place] [address] OFFICE VISIT Date of Service: 07/09/24 MR#: [id number] Acct: [id number] Name: SEAN MATOS Rep #: [id number] : 2000 Provider: JULIAN campos Age/Sex: 23/F [place] [facility] [place] Status: Signed Intake Vital Signs 06/11/24 08:59 07/09/24 08:29 Height 5 ft 7 in 5 ft 7 in Weight: 138 lb 4 oz BMI 21.6 BP 116/78 Intake Visit Reasons: 17 wk ob Chief Complaint: 17 Week OB Wet Inspector Optical Glass Required: No Is patient in pain?: No [...] spouse current occupational status: employed current occupation: [employer] current occupational exposures/hazards: No pets and animals: [...] times per week duration: 15-30 minutes/day vernon/confucianist: Worship seatbelt use: always do you feel safe at home: Yes additional social history: Tenzin- Emission Technician History 1 Elective abortions Hx Para 0 [...] Pain M (more content not included)... Normal [facility] Laboratory - Chemistry and C hemistry - challengeon 06-11-2024 Glucose Ql (U) Negative [facility] Laboratory - Urinalysison Protein Ql (U) Negative [facility] Labor And Employment Paralegal Office Visit Reporton 06-11-2024 Labor And Employment Paralegal Office Visit Report [facility] [address], [address] [place] [address] OFFICE VISIT Date of Service: 06/11/24 MR#: [id number] Acct: [id number] Name: SEAN MATOS Rep #: [id number] : 2000 Provider: Dr. Faith Wood DO Age/Sex: 23/F Location[place] [facility] [place] Status: Signed Intake Vital Signs 06/11/24 08:59 Height 5 ft 7 in Weight: 133 lb 6 oz BMI 20.9 BP 129/83 H Intake Visit Reasons: 13wk OB Wet Inspector Optical Glass Required: No Is patient in pain?: No [...] spouse current occupational status: employed current occupation: [employer] current occupational exposures/hazards: No pets and animals: [...] times per week duration: 15-30 minutes/day vernon/confucianist: Worship seatbelt use: always do you feel safe at home: Yes additional social history: Tenzin- Emission Technician History 1 Elective abortions Hx Para 0 [...] and Symptoms of Preeclampsia, Feeding No , [place] Education and Family Medical Leave or Disability Forms Results POC Urinalysis 2 Dip (Clinic) Office Urine Glucose Negative Last Edit by Rosana Escobar on 06/11/24 09:03 O (more content not included)... Normal [facility] PAP I-G w/rfx hrHPV-Aptimaon 05-15-2024 ADEQ Comment Normal . [facility] Comment on above: Order Comment: Aura black Comment: [id number] Comment: Source.............Cervix;EndocervixSpecimen Comment: Other..............Specimen Comment: No. of containers..01 ThinPrep Vial Result Comment: Sati sfactory for evaluation. No endocervical component is identified. An endocervical component is not commonly seen in the patient. Performed By: #### M 100.2200, L7400.0353, L7000.1800 ####[facility] [address] [place], [place], [address] COMM . Normal . [facility] Comment on above: Order Comment: Aura black Comment: [id number] Comment: Source.............Cervix;EndocervixSpecimen Comment: Other..............Specimen Comment: No. of containers..01 ThinPrep Vial Performed By: #### M 100.2200, L7400.0353, L7000.1800 ####[facility] [address] [place], [place], [phone] COMMENT Comment Normal . [facility] Comment on above: Order Comment: Speci men Comment: [id number] Comment: Source.............Cervix;EndocervixSpecimen Comment: Other..............Specimen Comment: No. of containers..01 ThinPrep Vial Result Comment: This liquid based ThinPrep(R) pap test was screened with the use of an image guided system. Performed By: #### M 100.2200, L7400.0353, L7000.1800 ####[facility] [address] [place], [address] DIAG Comment Normal . [facility] Comment on above: Order Comment: Speci men Comment: [id number] Comment: Source.............Cervix;EndocervixSpecimen Comment: Other..............Specimen Comment: No. of containers..01 ThinPrep Vial Result Comment: NEGA TIVE FOR INTRAEPITHELIAL LESION OR MALIGNANCY. Performed By: #### M 100.2200, L7400.0353, L7000.1800 ####[facility] [address] [place], [place], [address] HPV RFLX Comment Normal . [facility] Comment on above: Order Comment: Speci men Comment: [id number] Comment: Source.............Cervix;EndocervixSpecimen Comment: Other..............Specimen Comment: No. of containers..01 ThinPrep Vial Result Comment: The HPV DNA reflex criteria were not met with this specimen result therefore, no HPV testing was performed. Performed at: [address] [place] [id number] Product/Industry Consultant: Lisadnra Crews MD, Phone: [phone] Performed By: #### M 100.2200, L7400.0353, L7000.1800 ####[facility] [address] [place], [place], [phone] PAPSMR Comment Normal . [facility] Comment on above: Order Comment: Speci men Comment: [id number] Comment: Source.............Cervix;EndocervixSpecimen Comment: Other..............Specimen Comment: No. of [...] Performed By: #### M 100.2200, L7400.0353, L7000.1800 ####[facility] [address] [place], [place], [phone] PERFORM Comment Normal . [facility] Comment on above: Order Comment: Speci men Comment: [id number] Comment: Source.............Cervix;EndocervixSpecimen Comment: Other..............Specimen Comment: No. of containers..01 ThinPrep Vial Result Comment: Carmen Castellanos, Consulting Business Developer (ASCP) Performed By: #### M 100.2200, L7400.0353, L7000.1800 ####[facility] [address] [place], [place], [address] Chlamydia/GC SYED aptimaon CHLAMY,NUC ACID Negative Normal Negative [facility] Comment on above: Performed By: #### M 100.2200, L7400.0353, L7000.1800 ####[facility] [address] [place], [address] GC BY NUC ACID Negative Normal Negative [facility] Comment on above: Result Comment: Perf ormed at: =G - [facility] [address], [place] [id number] Product/Industry Consultant: Lisandra Crews MD, Phone: [phone] Performed By: #### M 100.2200, L7400.0353, L7000.1800 ####[facility] [address] [place], [address] Urine Cultureon 05-09-2024 URC Culture exhibits no growth. Normal [facility] Comment on above: Performed By: #### M 100.2200, L7400.0353, L7000.1800 ####[facility] [address] [place], [place], [phone] Absolute neutrophil countOrd ered By: Padmini Vasquez on 05-08-2024 Neutrophils (Bld) [#/Vol] 4.8 10*3/uL 2.0-7.7 [facility] Basophil percentageOrdered B y: Padmini Vasquez on 05-08-2024 Basophils/100 WBC (Bld) 0.4 % 0-1 [facility] C. trachomatis rRNA SYED+prob e Ql (Unsp spec)Ordered By: Padmini Vasquez on 05-08-2024 Chlamydia DNA (SYED) Negative Negative [facility] CBC W/Diff, Automatedon 04-27 Absolute Lymph 1.50 X10 3/uL Normal 0.83-4.51 [facility] Comment on above: Performed By: #### L 3890.6005, L3890.6300, L3890.6100, L100.0100, BTS, L509.4005, L509.8000 ####[facility] [address] [place], [address] Absolute Neut 4.8 X10 3/uL Normal 2.0-7.7 [facility] Comment on above: Performed By: #### L 3890.6005, L3890.6300, L3890.6100, L100.0100, BTS, L509.4005, L509.8000 ####[facility] [address] [place], [address] Basophils/100 WBC (Bld) 0.4 % Normal 0-1 [facility] Comment on above: Performed By: #### L 3890.6005, L3890.6300, L3890.6100, L100.0100, BTS, L509.4005, L509.8000 ####[facility] [address] [place], [address] Eosinophils/100 WBC (Bld) 0.4 % Normal 0-5 [facility] Comment on above: Performed By: #### L 3890.6005, L3890.6300, L3890.6100, L100.0100, BTS, L509.4005, L509.8000 ####[facility] [address] [place], [address] Erythrocyte distribution width (RBC) [Ratio] 12.0 % Normal 11.6-14.6 [facility] Comment on above: Performed By: #### L 3890.6005, L3890.6300, L3890.6100, L100.0100, BTS, L509.4005, L509.8000 ####[facility] [address] [place], [address] Hematocrit (Bld) [Volume fraction] 41.7 % Normal 37-47 [facility] Comment on above: Performed By: #### L 3890.6005, L3890.6300, L3890.6100, L100.0100, BTS, L509.4005, L509.8000 ####[facility] [address] [place], [address] Hemoglobin (Bld) [Mass/Vol] 13.8 g/dL Normal 12.0-15.0 [facility] Comment on above: Performed By: #### L 3890.6005, L3890.6300, L3890.6100, L100.0100, BTS, L509.4005, L509.8000 ####[facility] [address] [place], [address] IG% 0.300 Normal 0.0-0.9 [facility] Comment on above: Result Comment: IG% - Immature Granulocytes (promyelocytes, myelocytes and metamyelocytes) > 1% indicates that a LEFT SHIFT is Present. Performed By: #### L 3890.6005, L3890.6300, L3890.6100, L100.0100, BTS, L509.4005, L509.8000 ####[facility] [address] [place], [address] Lymphocytes/100 WBC (Bld) 22.0 % Normal 19-41 [facility] Comment on above: Performed By: #### L 3890.6005, L3890.6300, L3890.6100, L100.0100, BTS, L509.4005, L509.8000 ####[facility] [address] [place], [address] MCH (RBC) [Entitic mass] 29.1 pg Normal 27.0-32.0 [facility] Comment on above: Performed By: #### L 3890.6005, L3890.6300, L3890.6100, L100.0100, BTS, L509.4005, L509.8000 ####[facility] [address] [place], [address] MCHC (RBC) [Mass/Vol] 33.1 g/dL Normal 32-36 [facility] Comment on above: Performed By: #### L 3890.6005, L3890.6300, L3890.6100, L100.0100, BTS, L509.4005, L509.8000 ####[facility] [address] [place], [address] MCV (RBC) [Entitic vol] 87.8 fL Normal 81-99 [facility] Comment on above: Performed By: #### L 3890.6005, L3890.6300, L3890.6100, L100.0100, BTS, L509.4005, L509.8000 ####[facility] [address] [place], [address] Monocytes/100 WBC (Bld) 6.5 % Normal 0-10 [facility] Comment on above: Performed By: #### L 3890.6005, L3890.6300, L3890.6100, L100.0100, BTS, L509.4005, L509.8000 ####[facility] [address] [place], [address] Neutrophils/100 WBC (Bld) 70.4 % High 47-70 [facility] Comment on above: Performed By: #### L 3890.6005, L3890.6300, L3890.6100, L100.0100, BTS, L509.4005, L509.8000 ####[facility] [address] [place], [address] Nucleated RBC (Bld) [#/Vol] 0 10*3/uL Normal 0-5 [facility] Comment on above: Performed By: #### L 3890.6005, L3890.6300, L3890.6100, L100.0100, BTS, L509.4005, L509.8000 ####[facility] [address] [place], [address] Platelet mean volume (Bld) [Entitic vol] 8.8 fL Normal 6.2-12.0 [facility] Comment on above: Performed By: #### L 3890.6005, L3890.6300, L3890.6100, L100.0100, BTS, L509.4005, L509.8000 ####[facility] [address] [place], [address] Platelets (Bld) [#/Vol] 150 10*3/uL Normal 150-450 [facility] Comment on above: Performed By: #### L 3890.6005, L3890.6300, L3890.6100, L100.0100, BTS, L509.4005, L509.8000 ####[facility] [address] [place], [address] RBC (Bld) [#/Vol] 4.75 10*6/uL Normal 4.2-5.4 [facility] Comment on above: Performed By: #### L 3890.6005, L3890.6300, L3890.6100, L100.0100, BTS, L509.4005, L509.8000 ####[facility] [address] [place], [address] RDW SD 38.9 fl Normal 35.1-43.9 [facility] Comment on above: Performed By: #### L 3890.6005, L3890.6300, L3890.6100, L100.0100, BTS, L509.4005, L509.8000 ####[facility] [address] [place], [address] WBC (Bld) [#/Vol] 6.8 10*3/uL Normal 4.4-11.0 [facility] Comment on above: Performed By: #### L 3890.6005, L3890.6300, L3890.6100, L100.0100, BTS, L509.4005, L509.8000 ####[facility] [address] [place], [place], [phone] Fire Support Specialist Cyto stain Nom (C vx/Vag) [ID]Ordered By: Padmini Vasquez on 05-08-2024 Pap Smear Performed By Comment . [facility] Comment on above: Joslyn Castellanos, Cytot echnologist (ASCP) Cytology report Cyto stain D oc (Cvx/Vag)Ordered By: Padmini Vasquez on 05-08-2024 Thin Prep Pap Smear Comment . [facility] Comment on above: The Pap smear is a s creening test designed to aid in thedetection of premalignant and malignant conditions of theuterine cervix. It is not a diagnostic procedure andshould not be used as the sole means of detecting cervicalcancer. Both false-positive and false-negative reports dooccur. Eosinophil percentageOrdered By: Padmini Vasquez on 05-08-2024 Eosinophils/100 WBC (Bld) 0.4 % 0-5 [facility] Erythrocyte distribution wid th ratioOrdered By: Padmini Vasquez on 05-08-2024 Erythrocyte distribution width (RBC) [Ratio] 12.0 % 11.6-14.6 [facility] Erythrocyte distribution wid th standard deviationOrdered By: Padmini Vasquez on 05-08-2024 Erythrocyte distribution width (RBC) [Entitic vol] 38.9 fL 35.1-43.9 [facility] HIV - WCHon 05-08-2024 HIV Non-Reactive Normal Nonreactive [facility] Comment on above: Order Comment: Reaso n for Exam: Performed By: #### L 3890.6005, L3890.6300, L3890.6100, L100.0100, BTS, L509.4005, L509.8000 ####[facility] [address] [place], [place], [id number] HIV 1+2 Ab+HIV1 p24 Ag IA Ql Ordered By: Padmini Vasquez on 05-08-2024 HIV (1&2) Antibody Non-Reactive Nonreactive [facility] Hematocrit Auto (Bld) [Volum e fraction]Ordered By: Padmini Vasquez on 05-08-2024 Hematocrit (Bld) [Volume fraction] 41.7 % 37-47 [facility] Hemoglobin measurementOrdere d By: Padmini Vasquez on 05-08-2024 Hemoglobin (Bld) [Mass/Vol] 13.8 g/dL 12.0-15.0 [facility] Hepatitis B Surface Antigeno n 05-08-2024 HEP B Surf Ag Non-Reactive Normal Nonreactive [facility] Comment on above: Order Comment: Reaso n for Exam: Performed By: #### L 3890.6005, L3890.6300, L3890.6100, L100.0100, BTS, L509.4005, L509.8000 ####[facility] [address] [place], [place], [id number] Hepatitis B surface antigen detectionOrdered By: Padmini Vasquez on 05-08-2024 Hepatitis B Surface Antigen Non-Reactive Nonreactive [facility] Hepatitis C Antibodyon 05-08 Hepatitis C AB Non-Reactive Normal Nonreactive [facility] Comment on above: Order Comment: Reaso n for Exam: Result Comment: Non Reactive: < 0.8 Equivocal: >/= 0.8 to < 1.0 Reactive: >/= 1.0 The CDC requires that a reactive/equivocal HCV antibody result be sent out for confirmation. HCV Quant by PCR testing. Performed By: #### L 3890.6005, L3890.6300, L3890.6100, L100.0100, BTS, L509.4005, L509.8000 ####[facility] [address] [place], [place], [address] Hepatitis C virus antibody a ssayOrdered By: Padmini Vasquez on 05-08-2024 Hepatitis C Antibody Non-Reactive Nonreactive [facility] Comment on above: Non Reactive: < 0.8 Equivocal: >/= 0.8 to < 1.0 Reactive: >/= 1.0The CDC requires that a reactive/equivocal HCV antibody result be sent out for confirmation. HCV Quant by PCR testing. Image-guided ThinPrep PapOrd ered By: Padmini Vasquez on 05-08-2024 Pap Smear Note Comment . [facility] Comment on above: This liquid based Th inPrep(R) pap test was screened withthe use of an image guided system. Image-guided liquid-based Pa pOrdered By: Padmini Vasquez on 05-08-2024 Pap Smear Diagnosis Comment . [facility] Comment on above: NEGATIVE FOR INTRAEP ITHELIAL LESION OR MALIGNANCY. Image-guided liquid-based ce rvical Pap w high-risk HPV+reflex to HPV 16+18Ordered By: Padmini Vasquez on 05-08-2024 Human Papillomavirus Screen Comment . [facility] Comment on above: The HPV DNA reflex c riteria were not met with this specimenresult therefore, no HPV testing was performed.Performed at: [facility] - [facility] [address] [id number] Director: Lisandra Crews MD, Phone: [phone] Immature granulocytes/100 WB C Auto (Bld)Ordered By: Padmini Vasquez on 05-08-2024 Immature granulocytes/100 WBC (Bld) 0.300 % 0.0-0.9 [facility] Comment on above: IG% - Immature Granu locytes (promyelocytes, myelocytes and metamyelocytes) > 1% indicates that a LEFT SHIFT is Present. L509.8000on 05-08-2024 Syphilis Abs Non-Reactive Normal [facility] Comment on above: Order Comment: Reaso n for Exam: Performed By: #### L 3890.6005, L3890.6300, L3890.6100, L100.0100, BTS, L509.4005, L509.8000 ####[facility] [address] [place], [place], [phone] Lymphocytes Auto (Unsp spec) [#/Vol]Ordered By: Padmini Vasquez on 05-08-2024 Lymphocytes (Bld) [#/Vol] 1.50 10*3/uL 0.83-4.51 [facility] Lymphocytes/100 WBC Auto (Un sp spec)Ordered By: Padmini Vasquez on 05-08-2024 Lymphocytes/100 WBC (Bld) 22.0 % 19-41 [facility] MCV (mean corpuscular volume ) determinationOrdered By: Padmini Vasquez on 05-08-2024 MCV (RBC) [Entitic vol] 87.8 fL 81-99 [facility] Mean corpuscular hemoglobin (MCH) determinationOrdered By: Padmini Vasquez on 05-08-2024 MCH (RBC) [Entitic mass] 29.1 pg 27.0-32.0 [facility] Mean corpuscular hemoglobin concentration (MCHC) determinationOrdered By: Padmini Vasquez on 05-08-2024 MCHC (RBC) [Mass/Vol] 33.1 g/dL 32-36 [facility] Mean platelet volume determi nationOrdered By: Padmini Vasquez on 05-08-2024 Platelet mean volume (Bld) [Entitic vol] 8.8 fL 6.2-12.0 [facility] Monocyte percentageOrdered B y: Padmini Vasquez on 05-08-2024 Monocytes/100 WBC (Bld) 6.5 % 0-10 [facility] Neisseria gonorrhoeae nuclei c acid detection by amplified probe techniqueOrdered By: Padmini Vasquez on 05-08-2024 N. gonorrhoeae DNA SYED+probe Ql (Unsp spec) Negative Negative [facility] Comment on above: Performed at: =[address] [id number] Director: Lisandra Crews MD, Phone: [phone] Neutrophil percentageOrdered By: Padmini Vasquez on 05-08-2024 Neutrophils/100 WBC (Bld) 70.4 % High 47-70 [facility] Nucleated red blood cell per centageOrdered By: Padmini Vasquez on 05-08-2024 Nucleated RBC/100 WBC (Bld) [Ratio] 0 % 0-5 [facility] Labor And Employment Paralegal Office Visit Reporton 05-08-2024 Labor And Employment Paralegal Office Visit Report [facility] [address], [address] [place] [address] OFFICE VISIT Date of Service: 05/08/24 MR#: [id number] Acct: [id number] Name: SEAN MATOS Rep #: [id number] : 2000 Provider: CRISS Awad ams Age/Sex: 23/F [place] [facility] [place]: Signed Intake Vital Signs 05/08/24 11:31 05/08/24 11:39 Weight: 135 lb BP 133/80 H Intake Visit Reasons: NEW OB Wet Inspector Optical Glass Required: No Is patient in pain?: No [...] No current occupational status: employed current occupation: [employer] current occupational exposures/hazards: No pets and animals: [...] times per week duration: 15-30 minutes/day vernon/confucianist: Worship seatbelt use: always do you feel safe at home: Yes additional social history: Tenzin- Emission Technician History 1 Elective abortions Hx Para 0 [...] US: No, (more content not included)... Normal [facility] Platelet countOrdered By: Osmany Vasquez on 05-08-2024 Platelets (Bld) [#/Vol] 150 10*3/uL 150-450 [facility] RBC Auto (Bld) [#/Vol]Ordere d By: Padmini Vasquez on 05-08-2024 RBC (Bld) [#/Vol] 4.75 10*6/uL 4.2-5.4 [facility] Rubella IgGon 05-08-2024 Rubella IgG Reactive Normal Nonreactive [facility] Comment on above: Order Comment: Reaso n for Exam: Result Comment: Anti body Results Interpretation of Immune Status Non Reactive Presumed Non-Immune Equivocal Equivocal Reactive Presumed Immune Performed By: #### L 3890.6005, L3890.6300, L3890.6100, L100.0100, BTS, L509.4005, L509.8000 ####[facility] [id number] [place], [place], [id number] Rubella immune status IgGOrd ered By: Padmini Vasquez on 05-08-2024 Rubella IgG Antibody Reactive Nonreactive [facility] Comment on above: Antibody Results Int erpretation of Immune Status Non Reactive Presumed Non-Immune Equivocal Equivocal Reactive Presumed Immune Service comment (Unsp spec) [Interp]Ordered By: Padmini Vasquez on 05-08-2024 Pap Smear Comment (3) . . [facility] Treponema sp Ab Ql (S)Ordere d By: Padmini Vasquez on 05-08-2024 Syphilis Total Antibody Non-Reactive [facility] Type AND Screenon 05-08-2024 Ab SCREEN GEL Negative Normal [facility] Comment on above: Order Comment: PN Performed By: #### L 3890.6005, L3890.6300, L3890.6100, L100.0100, BTS, L509.4005, L509.8000 ####[facility] [id number] [place], [address] Urine cultureOrdered By: Peter Vasquez on 05-08-2024 Bacteria identified Cx Nom (U) Culture exhibits no growth. [facility] White blood cell (WBC) count Ordered By: Padmini Vasquez on 05-08-2024 WBC (Bld) [#/Vol] 6.8 10*3/uL 4.4-11.0 [facility] Vital Signs Date Time Vital Sign Value Performing Clinician Faci lity 11-27-2024 14:49-0400 Body height 172.72 cm No Primary Care Physician [facility] 11-27-2024 14:46-0400 Body mass index (BMI) [Ratio] 23.8 kg/m2 No Primary Care Physician [facility] 11-27-2024 14:46-0400 Body weight 71.21 kg No Primary Care Physician [facility] 11-27-2024 14:46-0400 Diastolic blood pressure 76 mm[Hg] No Primary Care Physician [facility] 11-27-2024 14:46-0400 Systolic blood pressure 108 mm[Hg] No Primary Care Physician [facility] 11-21-2024 15:44-0400 Body height 172.72 cm No Primary Care Physician [facility] 11-21-2024 15:44-0400 Body mass index (BMI) [Ratio] 23.8 kg/m2 No Primary Care Physician [facility] 11-21-2024 15:44-0400 Body weight 71.21 kg No Primary Care Physician [facility] 11-21-2024 15:39-0400 Body temperature 98.6 [degF] No Primary Care Physician [facility] 11-21-2024 15:39-0400 Diastolic blood pressure 71 mm[Hg] No Primary Care Physician [facility] 11-21-2024 15:39-0400 Heart rate 105 /min No Primary Care Physician [facility] 11-21-2024 15:39-0400 Respiratory rate 16 /min No Primary Care Physician [facility] 11-21-2024 15:39-0400 Systolic blood pressure 124 mm[Hg] No Primary Care Physician [facility] 11-20-2024 15:37-0400 Body height 170.18 cm No Primary Care Physician [facility] 11-20-2024 15:37-0400 Body mass index (BMI) [Ratio] 24.5 kg/m2 No Primary Care Physician [facility] 11-20-2024 15:37-0400 Body weight 70.93 kg No Primary Care Physician [facility] 11-20-2024 15:37-0400 Diastolic blood pressure 79 mm[Hg] No Primary Care Physician [facility] 11-20-2024 15:37-0400 Systolic blood pressure 125 mm[Hg] No Primary Care Physician [facility] 2024 08:55-0400 Body height 170.18 cm No Primary Care Physician [facility] 2024 08:50-0400 Body mass index (BMI) [Ratio] 24.3 kg/m2 No Primary Care Physician [facility] 2024 08:50-0400 Body weight 70.53 kg No Primary Care Physician [facility] 2024 08:50-0400 Diastolic blood pressure 82 mm[Hg] No Primary Care Physician [facility] 2024 08:50-0400 Systolic blood pressure 123 mm[Hg] No Primary Care Physician [facility] 10-29-2024 08:30-0400 Body height 170.18 cm No Primary Care Physician [facility] 10-29-2024 08:30-0400 Body mass index (BMI) [Ratio] 23.7 kg/m2 No Primary Care Physician [facility] 10-29-2024 08:30-0400 Body weight 68.66 kg No Primary Care Physician [facility] 10-29-2024 08:30-0400 Diastolic blood pressure 80 mm[Hg] No Primary Care Physician [facility] 10-29-2024 08:30-0400 Systolic blood pressure 124 mm[Hg] No Primary Care Physician [facility] 10-17-2024 10:03-0400 Body mass index (BMI) [Ratio] 23.7 kg/m2 No Primary Care Physician [facility] 10-17-2024 10:03-0400 Body weight 68.71 kg No Primary Care Physician [facility] 10-17-2024 10:03-0400 Diastolic blood pressure 77 mm[Hg] No Primary Care Physician [facility] 10-17-2024 10:03-0400 Systolic blood pressure 128 mm[Hg] No Primary Care Physician [facility] 10-03-2024 10:16-0400 Body mass index (BMI) [Ratio] 23.8 kg/m2 No Primary Care Physician [facility] 10-03-2024 10:16-0400 Body weight 69.11 kg No Primary Care Physician [facility] 10-03-2024 10:16-0400 Diastolic blood pressure 80 mm[Hg] No Primary Care Physician [facility] 10-03-2024 10:16-0400 Systolic blood pressure 131 mm[Hg] No Primary Care Physician [facility] 09-19-2024 08:31-0400 Body mass index (BMI) [Ratio] 23.2 kg/m2 No Primary Care Physician [facility] 09-19-2024 08:31-0400 Body weight 67.3 kg No Primary Care Physician [facility] 09-19-2024 08:31-0400 Diastolic blood pressure 78 mm[Hg] No Primary Care Physician [facility] 09-19-2024 08:31-0400 Systolic blood pressure 119 mm[Hg] No Primary Care Physician [facility] 09-05-2024 15:14-0400 Body mass index (BMI) [Ratio] 21.3 kg/m2 No Primary Care Physician [facility] 09-05-2024 15:14-0400 Body weight 61.8 kg No Primary Care Physician [facility] 09-05-2024 15:14-0400 Diastolic blood pressure 81 mm[Hg] No Primary Care Physician [facility] 09-05-2024 15:14-0400 Systolic blood pressure 131 mm[Hg] No Primary Care Physician [facility] 08-08-2024 11:03-0400 Body height 170.18 cm Padmini Vasquez CNM Work Phone: [facility] 08-08-2024 10:59-0400 Body mass index (BMI) [Ratio] 22.1 kg/m2 Padmini Vasquez CNM Work Phone: [facility] 08-08-2024 10:59-0400 Body weight 63.95 kg Padmini Vasquez CNM Work Phone: [facility] 08-08-2024 10:59-0400 Diastolic blood pressure 70 mm[Hg] Padmini Vasquez CNM Work Phone: [facility] 08-08-2024 10:59-0400 Systolic blood pressure 110 mm[Hg] Padmini Vasquez CNM Work Phone: [facility] 07-09-2024 08:29-0500 Body mass index (BMI) [Ratio] 21.6 kg/m2 Padmini Vasquez CNM Work Phone: [facility] 07-09-2024 08:29-0500 Body weight 62.7 kg Padmini Vasquez CNM Work Phone: [facility] 07-09-2024 08:29-0500 Diastolic blood pressure 78 mm[Hg] Padmini Vasquez CNM Work Phone: [facility] 07-09-2024 08:29-0500 Systolic blood pressure 116 mm[Hg] Padmini Vasquez CNM Work Phone: [facility] 06-11-2024 08:59-0500 Body mass index (BMI) [Ratio] 20.9 kg/m2 Padmini Vasquez CNM Work Phone: [facility] 06-11-2024 08:59-0500 Body weight 60.49 kg Padmini Vasquez CNM Work Phone: [facility] 06-11-2024 08:59-0500 Diastolic blood pressure 83 mm[Hg] Padmini Vasquez CNM Work Phone: [facility] 06-11-2024 08:59-0500 Systolic blood pressure 129 mm[Hg] Padmini Vasquez CNM Work Phone: [facility] 05-08-2024 11:39-0500 Body weight 61.23 kg Padmini Vasquez CNM Work Phone: [facility] 05-08-2024 11:31-0500 Diastolic blood pressure 80 mm[Hg] Padmini Vasquez CNM Work Phone: [facility] 05-08-2024 11:31-0500 Systolic blood pressure 133 mm[Hg] Padmini Vasquez CNM Work Phone: [facility] Encounters Encounter Date Encounter Type Care Provider Facility Start: 12-12-2024 ambulatory No Primary Car e Physician Facility:[facility] Start: 11-30-2024 ambulatory Hilda Hall Facilit y:[facility] Start: 11-27-2024 End: 11-27-[address] Zulay Ruby MD -[facility] Work Phone: Start: 11-27-2024 End: 11-27-2024 ambulatory No Primary Care Physician -[facility] Start: 11-21-2024 ambulatory Faith Marksty:[facility] Start: 11-21-2024 Non-patient / Non-visit Dr. Faith Moreland DO -[facility] Start: 11-21-2024 End: 11-21-2024 ambulatory No Primary Care Physician -[facility] Start: 11-21-2024 End: 11-21-[address] Faith Moreland DO -[facility] Work Phone: Start: 11-20-2024 End: 11-20-[address] Zulay Ruby MD -[facility] Work Phone: Start: 11-20-2024 End: 11-20-2024 ambulatory No Primary Care Physician [facility] Work Phone: Start: 2024 End: 2024 ambulatory No Primary Care Physician [facility] Work Phone: Start: 2024 End: [address] Zulay Ruby MD -[facility] Work Phone: Start: 2024 End: [address] Zulay Ruby MD -[facility] Work Phone: Start: 2024 End: 2024 ambulatory No Primary Care Physician [facility] Work Phone: Start: 2024 End: 2024 ambulatory No Primary Care Physician Facility:[facility] Start: 10-29-2024 End: 10-29-2024 Patient encounter procedure Malina JORDAN -[facility] Work Phone: Start: 10-29-2024 End: 10-29-2024 ambulatory No Primary Care Physician [facility] Work Phone: Start: 10-17-2024 End: 10-17-2024 Patient encounter procedure Padmini OAKES -[facility] Work Phone: Start: 10-17-2024 End: 10-17-2024 ambulatory No Primary Care Physician Facility:[facility] Start: 10-03-2024 End: 10-03-[address] Faith Moreland DO -[facility] Work Phone: Start: 10-03-2024 End: 10-03-2024 ambulatory No Primary Care Physician Facility:[facility] Start: 09-19-2024 End: 09-19-2024 Patient encounter procedure Hilda Hall CNM -[facility] Work Phone: Start: 09-19-2024 End: 09-19-2024 ambulatory No Primary Care Physician Facility:[facility] Start: 09-19-2024 End: 09-19-2024 ambulatory No Primary Care Physician Facility:[facility] Start: 09-05-2024 End: 09-05-2024 Patient encounter procedure Hilda Hall CNM -[facility] Work Phone: Start: 09-05-2024 End: 09-05-2024 ambulatory No Primary Care Physician Facility:[facility] Start: 08-08-2024 End: 08-08-[address] Zulay Ruby MD -[facility] Work Phone: Start: 08-08-2024 End: 08-08-2024 ambulatory No Primary Care Physician Facility:[facility] Start: 07-28-2024 End: 07-28-2024 ambulatory Padmini Vasquez CNM Work Phone: [facility] Work Phone: Start: 07-28-2024 End: 07-28-[address] Faith Moreland DO -[facility] Work Phone: Start: 07-28-2024 End: 07-28-2024 ambulatory Faith Moreland Facility:[facility] Start: 07-09-2024 End: 07-09-2024 Patient encounter procedure Malina JORDAN -[facility] Work Phone: Start: 07-09-2024 End: 07-09-2024 ambulatory No Primary Care Physician Facility:[facility] Start: 06-11-2024 End: 06-11-[address] Faith Moreland DO -[facility] Work Phone: Start: 06-11-2024 End: 06-11-2024 ambulatory Faith Moreland Facility:[facility] Start: 05-08-2024 End: 05-08-2024 Patient encounter procedure Padmini Vasquez CNM -Lab, [facility] Start: 05-08-2024 End: 05-08-2024 Patient encounter procedure Padmini Vasquez CNM -[facility] Work Phone: Start: 05-08-2024 End: 05-08-2024 ambulatory Padmini Vasquez Facility:[facility] Start: 05-08-2024 End: 05-08-2024 ambulatory Padmini Vasquez Facility:[facility] Procedures Date Procedure Procedure Detail Performing [...] Author Start: 11-21-2024 Ultrasound scan for growth [facility] Start: 11-21-2024 [facility] Start: 11-21-2024 Vital signs measurements [facility] Start: 11-21-2024 Patient discharge [facility] Patient Education Kick Counts ED False Labor OB Triage: Return to Hospital or Notify Physician if you Experience: [facility] Work Phone: Streptococcus agalac tiae [Presence] in Unspecified specimen by Organism specific culture [facility] Ultrasound scan for growth [facility] Payers Date Payer Category Payer Unknown [id number] 2024 Unknown [id number] 2024 Self-pay Unknown [id number] 2.16.8 [id number] Unknown [id number] 2.16.8 40.1.314121.3.579.2.462 Unknown [id number] 2.16.8 40.1.454515.3.579.2.462 Unknown [id number] 2.16.8 40.1.169394.3.579.2.462 Unknown [id number] 2.16.8 40.1.551696.3.579.2.462 Unknown [id number] 2.16.8 40.1.760288.3.579.2.462 Unknown [id number] 2.16.8 40.1.647492.3.579.2.462 Unknown [id number] 2.16.8 40.1.870026.3.579.2.462 Unknown [id number] 2.16.8 40.1.220218.3.579.2.462 Unknown [id number] 2.16.8 40.1.005756.3.579.2.462 Unknown [id number] 2.16.8 40.1.072511.3.579.2.462 Unknown [id number] 2.16.8 40.1.810742.3.579.2.462 Unknown [id number] 2.16.8 40.1.299256.3.579.2.462 Unknown [id number] 2.16.8 40.1.124925.3.579.2.462 Unknown [id number] 2.16.8 40.1.152199.3.579.2.462 Unknown [id number] 2.16.8 40.1.756894.3.579.2.462 Unknown [id number] 2.16.8 40.1.781335.3.579.2.462 Unknown [id number] 2.16.8 40.1.091266.3.579.2.462 Unknown [id number] 2.16.8 40.1.058544.3.579.2.462 Unknown [id number] 2.16.8 40.1.221878.3.579.2.462 Social History Date Type Detail Facility [facility]: [facility] Start: 08-08-2024 Sex Female (finding) [facility] Start: 2000 Sex Assigned At Female [facility] Clinical Notes 05-08-2024 to 11-27-2024 Note Date & Type Note Facility 11-27-2024 Progress note [facility] 11-27-2024 Progress note Note Date/Time November 27, 2024 3:10pm [facility] [address], [address] [place] [address] OFFICE VISIT Date of Service: 11/27/24 MR#: [id number] Acct: [id number] Name: SEAN MATOS Rep #: [id number] : 2000 Provider: Dr. Narayan Ruby MD Age/Sex: 24/F [place] [facility] [place]: Signed Intake Vital Signs 10/17/24 10:03 11/21/24 15:44 11/27/24 14:46 11/27/24 14:49 Height 5 ft 7 in 5 ft 8 in 5 ft 8 in 5 ft 8 in Weight: 157 lb BMI 23.8 BP 108/76 Intake Visit Reasons: 38 wk ob Wet Inspector Optical Glass Required: No Is patient in pain?: No [...] spouse current occupational status: employed current occupation: [employer] current occupational exposures/hazards: No pets and animals: [...] times per week duration: 15-30 minutes/day vernon/confucianist: Worship seatbelt use: always do you feel safe at home: Yes additional social history: Tenzin- Emission Technician History 1 Elective abortions Hx Para 0 [...] Cosigner Signature: Date (if applicable) CC: ~ [facility] Work Phone: 1(778) 975-812206-26-2025 Progress [facility] [address] [place] [address], [address] [place], [place] [id number] OFFICE VISIT Date of Service: 11/20/24 MR#: [id number] Acct: [id number] Name: SEAN MATOS Rep #: [id number] : 2000 Provider: Dr. Narayan Ruby MD Age/Sex: 24/F Location[place] [facility] [place] Status: Signed Intake Vital Signs 10/03/24 10:16 11/14/24 08:55 11/20/24 15:37 Height 5 ft 7 in 5 ft 7 in 5 ft 7 in Weight: 156 lb 6 oz BMI 24.5 BP 125/79 H Intake Visit Reasons: 37 wk ob Wet Inspector Optical Glass Required: No Is patient in pain?: No [...] spouse current occupational status: employed current occupation: [employer] current occupational exposures/hazards: No pets and animals: [...] times per week duration: 15-30 minutes/day vernon/confucianist: Worship seatbelt use: always do you feel safe at home: Yes additional social history: Tenzin- Emission Technician History 1 Elective abortions Hx Para 0 [...] and Symptoms of Preeclampsia, Feeding No , [place] Education, Family Medical Leave or Disability Forms [...] Cosigner Signature: Date (if applicable) CC: ~ [facility]06-26-2025 Progress note Author Zulay Ruby [facility] Note Date/Time November 20, 2024 4:10 pm [facility] [address] [place] [address], [address] [place] [address] OFFICE VISIT Date of Service: 11/20/24 MR#: [id number] Acct: [id number] Name: SEAN MATOS Rep #: [id number] : 2000 Provider: Dr. Narayan Ruby MD Age/Sex: 24/F Location[place] [facility] [place] Status: Signed Intake Vital Signs 10/03/24 10:16 11/14/24 08:55 11/20/24 15:37 Height 5 ft 7 in 5 ft 7 in 5 ft 7 in Weight: 156 lb 6 oz BMI 24.5 BP 125/79 H Intake Visit Reasons: 37 wk ob Wet Inspector Optical Glass Required: No Is patient in pain?: No [...] spouse current occupational status: employed current occupation: [employer] current occupational exposures/hazards: No pets and animals: [...] times per week duration: 15-30 minutes/day vernon/confucianist: Worship seatbelt use: always do you feel safe at home: Yes additional social history: Tenzin- Emission Technician History 1 Elective abortions Hx Para 0 [...] Cosigner Signature: Date (if applicable) CC: ~ [facility] Work Phone: [phone]) 918-581306-20-2025 Progress [facility] [address] [place] [address], [address] [place] [address] OFFICE VISIT Date of Service: 11/14/24 MR#: [id number] Acct: [id number] Name: SEAN MATOS Rep #: [id number] : 2000 Provider: Dr. Narayan Ruby MD Age/Sex: 24/F Location[place] [facility] [place] Status: Signed Intake Vital Signs 10/03/24 10:16 10/29/24 08:30 11/14/24 08:50 11/14/24 08:55 Height 5 ft 7 in 5 ft 7 in 5 ft 7 in 5 ft 7 in Weight: 155 lb 8 oz BMI 24.3 BP 123/82 H Intake Visit Reasons: 36 wk ob Wet Inspector Optical Glass Required: No Is patient in pain?: No [...] spouse current occupational status: employed current occupation: [employer] current occupational exposures/hazards: No pets and animals: [...] times per week duration: 15-30 minutes/day vernon/confucianist: Worship seatbelt use: always do you feel safe at home: Yes additional social history: Tenzin- Emission Technician History 1 Elective abortions Hx Para 0 [...] Cosigner Signature: Date (if applicable) CC: ~ [facility]03-14-2025 Evaluation note* Diagnosis Onset Date Resolution [...] Supervision of normal first acute 2024 8:48am [facility] Work Phone: 1([phone]) 329-356903-14-2025 Evaluation note* Diagnosis Onset Date Resolution Status [...] third trimester acute November 20, 2024 3:30pm [facility] Work Phone: 1(278) 628-499903-14-2025 Evaluation note* Diagnosis Onset Date Resolution Status [...] trimester acute November 27, 2024 2 :42pm [facility] Work Phone: 1(715) 594-441703-03-2025 Radiology Diagnostic study note [facility] Imaging Services [address] [place] [address] OB Anatomy w/ Transvaginal MR#: [id number] Acct: [id number] Name: SEAN MATOS Rep #: [id number] : 2000 F 23 From: Ekta Madsen MD PCP: Care Physician,No Primary Status: REG CLI Study:OB Anatomy w/ Transvaginal Date of Exam : 07/28/24 Exam# [id number] Ordering Dr: Faith Lui DO PROCEDURE: OB [...] Moreland, DO; No Primary Care Physician ~ Environmental Services Aide: Signed [facility]02-12-2025 Evaluation note* Diagnosis Onset Date Resolution [...] first acute October 29, 2024 8 :26am [facility] Work Phone: 1(480) 510-960512-12-2024 NotePap Smear Specimen [facility] 20[facility] 12:59amComment.Satisfactory for evaluation. No endocervical component is identified.An endocervical component is not commonly seen in the patient.[facility] A#[id number] Hospital CompanyComment on above: Satisfactory for evaluation. No endocervical [...] normal first acute August 08, 2024 10:54am [facility] Work Phone: Progress note Author Zulay Ruby [facility] Note Date/Time 2024 9:32 am [facility] [address] [place] [address], [address] [place] [address] OFFICE VISIT Date of Service: 11/14/24 MR#: [id number] Acct: [id number] Name: SEAN MATOS Rep #: [id number] : 2000 Provider: Dr. Narayan Ruby MD Age/Sex: 24/F [place] [facility] [place] Status: Signed Intake Vital Signs 10/03/24 10:16 10/29/24 08:30 11/14/24 08:50 11/14/24 08:55 Height 5 ft 7 in 5 ft 7 in 5 ft 7 in 5 ft 7 in Weight: 155 lb 8 oz BMI 24.3 BP 123/82 H Intake Visit Reasons: 36 wk ob Wet Inspector Optical Glass Required: No Is patient in pain?: No [...] spouse current occupational status: employed current occupation: [employer] current occupational exposures/hazards: No pets and animals: [...] times per week duration: 15-30 minutes/day vernon/confucianist: Worship seatbelt use: always do you feel safe at home: Yes additional social history: Tenzin- Emission Technician History 1 Elective abortions Hx Para 0 [...] Cosigner Signature: Date (if applicable) CC: ~ [facility] Work Phone: Reason for referral (narrative)No reason for referral information available[facility] Work Phone: Chief Complaint and Reason for [...] Rh negative state in antepartum period F [facility] 2024 8:26am Supervision of normal first Fe [facility] 2024 8:26am August 08, 2024 10: 54am Rh negative state in antepartum period M [facility] 2024 10:54am Supervision of normal first [facility] 2024 10:54am Chief Complaint Admit Date 17 [...] Rh negative state in antepartum period F [facility] 2024 8:26am Supervision of normal first Fe bruary 2024 8:26am August 08, 2024 10: 54am Rh negative state in antepartum period M [facility] 2024 10:54am Supervision of normal first Ma [facility] 2024 10:54am September 05, 2024 3:0 7pm [...] 2024 10:54am Supervision of normal first Ma [facility] 2024 10:54am September 05, 2024 3:0 7pm [...] Rh negative state in antepartum period J [facility] 2024 8:26am Supervision of normal first Ju pa 2024 8:26am 2024 8:48 am Rh negative state in antepartum period J [facility] 2024 8:48am Supervision of normal first Ju pa 2024 8:48am Positive GBS test November 20, 2024 3:30 pm November 20, 2024 3:30 pm Rh negative state in antepartum period J [facility] 2024 3:30pm Supervision of normal first Ju pa 2024 3:30pm Uterine size-date discrepancy, third tri [...] 54am Rh negative state in antepartum period [facility] 2024 10:54am Supervision of normal first [facility] 2024 10:54am September 05, 2024 3:0 7pm [...] Rh negative state in antepartum period J [facility] 2024 8:26am Supervision of normal first Ju pa 2024 8:26am 2024 8:48 am Rh negative state in antepartum period J [facility] 2024 8:48am Supervision of normal first Ju pa 2024 8:48am Positive GBS test November 20, 2024 3:30 pm November 20, 2024 3:30 pm Rh negative state in antepartum period J [facility] 2024 3:30pm Supervision of normal first Ju pa 2024 3:30pm Uterine size-date discrepancy, third tri mester November 20, 2024 3:30pm Positive GBS test November 21, 2024 3:28 pm November 21, 2024 3:28 pm Rh negative state in antepartum period J [facility] 2024 3:28pm Supervision of normal first Ju [...] 08, 2024 End: May 08, 2024 Padmini Vsaquez CNM Referring Provider Active S tart: May [...] Member Role Status Dates Malina Antunez NP, ENGINEERING ILLUSTRATOR-C Attending Provider Active Start: July 09, 2024 [...] End: October 29, 2024 Malina Antunez NP, ENGINEERING ILLUSTRATOR-C Attending Provider Active Start: October 29, 2024 [...] 2024 End: October 29, 2024 Malina Antunez ENGINEERING ILLUSTRATOR, ENGINEERING ILLUSTRATOR-C Attending Provider Active Start: October 29, 2024 [...] End: October 29, 2024 Malina Antunez NP, ENGINEERING ILLUSTRATOR-C Attending Provider Active Start: October 29, 2024 [...] 2024 End: November 21, 2024 Dr. Faith Morelnad DO Referring Provider Activ e Start: November [...] section and content) DATE CREATED AUTHOR 11/30/2024 [facility] FOR RECORDS PERTAINING TO PATIENTS WHO ARE [...] BE BASED ON THE PRIMARY CLINICAL RECORDS. [facility] [employer] Card To Get Approved For [facility]. provides no warranty or guarantee of the accuracy or completeness of information in this document.
[2024-11-30] MEDS: Penicillin G 3,000,000 Units 50 ML 100 UNITS IV (15:41)
[2024-11-30] MEDS: Lactated Ringers 1,000 ML 200 ML IV (17:07)
[2024-11-30] MEDS: Lidocaine 1% (20 ml mdv) 20 ML Vial INFILT (18:45)
[2024-11-30] MEDS: Oxytocin 15 Units/NS 250ml 15 UNITS/250 ML IV.SOLN 334 UNITS IV (19:10)
--- NOTE | 2024-11-30 19:29 | OB.VAGDELI_ITS ---
Assessment & Plan (1) (spontaneous vaginal delivery): COMMENT: LC IAL Augie Maternal Data Information FLORIDALMA Calculator Estimated Delivery Date Method Current WG Current Estimate 12/12/24 LMP (Certain) 38w 2d Other Estimates 12/09/24 Ultrasound #1 38w 5d Final FLORIDALMA: 12/12/24 Final FLORIDALMA Source: LMP Gestational age: 38.2 Vaginal Delivery Maternal Presentation Maternal Presentation: Active Labor Maternal Presentation: at 38.2 presenting with increased contractions Vaginal Delivery Information Procedure Performed: Spontaneous Vaginal Delivery Pre-Procedure Diagnosis: see problem list Post-Procedure Diagnosis: Type of anesthesia: None Estimated Blood Loss: 400 Time of Delivery: 16:45 Findings Description of procedure: Patient began pushing and delivered the head in the BRITT presentation. The head was delivered atraumatically. The anterior and posterior shoulders delivered without complication followed by the rest of the and the infant was placed on the maternal abdomen. Delayed cord clamping was employed for approximately 60 seconds. Cord was clamped and cut and gentle traction was applied to the cord and the placenta delivered spontaneously immediately following it was noted to be intact with three-vessel cord. The perineum and vagina were inspected and noted to have first degree laceration repaired with 3.0 vicryl in usual fashion. EBL was 400cc. Patient and infant tolerated delivery well. Presentation: Vertex Amniotic Fluid Description: Clear Placental Delivery Description: Spontaneous Placenta Disposition: [facility] Cord Vessel Description: 3 Vessels Cord Entanglement: None A Gender: Male (1 minute): 8 (5 minute): 9 Delayed Cord Clamping: Yes Post Vaginal Deli Medications given after delivery: IV Pitocin Episiotomy Description: None Laceration: 1st degree Procedures Urinary/Genital [id number]: [id number] Vaginal Delivery [facility]
--- NOTE | 2024-11-30 19:30 | NURSING ---
Report received from Ira RN, taking over pt care at this time.
[2024-11-30] MEDS: Oxytocin 15 Units/NS 250ml 15 UNITS/250 ML IV.SOLN 83 UNITS IV (19:40)
--- NOTE | 2024-11-30 20:14 | DCINST_ITS ---
Discharge Instructions Diet Discharge Diet: No restrictions DC O2, CPAP, BIPAP needs Home O2 Discharge instructions: No Dressing / Incision Discharge Activity: May Not Drive and May Shower May resume sexual activity in: 6 weeks Weight Bearing Status: Full weight bearing Dressing / Incision Call your doctor if your incision/area has: Sudden Increased Bleeding, Increased Pain/ Swelling and Foul Smelling Discharge Call your doctor if you observe: Fever of 101 or Higher, Numbness or Tingling, Change in Color, Inability to urinate, Inability to have a bowel movement, Using more than 1 pad per hour, Shortness of breath, Dizziness, Fainting spells, Chest pain, Calf discomfort and Uncontrolled pain Follow Up Care Please Follow Up With: Hilda Hall CNM When: 6 weeks , please call office to make an appointment. Congratulations on the of your baby! Test Results: Test results from this visit will be discussed in further detail at your follow- up appointment, if applicable. Discharge Plan Admission Admit Date/Time: 11/30/24 09:59 Attending Provider: Hilda Hall Primary Care Provider: Care Physician,Shanti Primary Discharge Orders/Prescriptions Prescriptions: No Action PNV-DHA 27 mg iron-1 mg -300 mg capsule 1 cap PO DAILY Referrals / Follow Up: Care Physician,No Primary [Primary Care Provider] -
[2024-12-01 00:15] VITALS: BP 113/69; PULSE 105; RESP 16; TEMP 36.6; O2SAT 97
[2024-12-01 04:26] VITALS: BP 105/68; PULSE 93; RESP 16; TEMP 36.7; O2SAT 100
[2024-12-01] MEDS: 0.9% Saline Lock 10 ML Syringe IV (04:29)
[2024-12-01] MEDS: Rho(D) Immune Globulin 300 MCG (1500 Unit) Syringe IV (04:29)
[2024-12-01 07:47] VITALS: BP 117/61; PULSE 113; RESP 16; TEMP 36.8; O2SAT 99
--- NOTE | 2024-12-01 08:17 | PN.OBGYN_ITS ---
Subjective Subjective Patient doing well without complaints. Tolerating PO. Ambulating and voiding without difficulty. Feeding well. Denies chest pain, shortness of breath, calf pain/swelling, fevers, chills, lightheadedness. Objective Data Objective Data Vital Signs: Vital Signs Temp Pulse Resp BP Pulse Ox O2 Del Method 98.2 F 113 H 16 117/61 99 Room Air 12/01/24 07:47 12/01/24 07:47 12/01/24 07:47 12/01/24 07:47 12/01/24 07:47 12/01/24 04:26 Oxygen Delivery Method Room Air Weight: 158 lb Body Mass Index (BMI) 24.7 Intake & Output: Intake and Output for Last 24 Hours 11/29/24 11/30/24 12/01/24 23:59 23:59 23:59 Intake Total 2054.50 / 2054.50 Output Total 800 / 800 900 / 900 Balance 1254.50 / 1254.50 -900 / -900 Lab / Micro Data 11/30/24 10:15 Labs: Laboratory Results - last 24 hr 11/30/24 10:15: WBC 15.7 H, RBC 4.09 L, Hgb 12.7, Hct 35.7 L, MCV 87.3, MCH 31.1, MCHC 35.6, RDW Std Deviation 40.1, RDW Coeff of Bethanie 12.4, Plt Count 162, MPV 9.0, Immature Gran % (Auto) 1.700 H, Neut % (Auto) 85.2 H, Lymph % (Auto) 8.5 L, [place] % (Auto) 4.0, Eos % (Auto) 0.3, Baso % (Auto) 0.3, Absolute Neuts (auto) 13.4 H, Absolute Lymphs (auto) 1.34, Nucleated RBC % 0, Syphilis Total Ab Nonreactive, Blood Type Cancelled, Antibody Screen Cancelled 11/30/24 11:05: Blood Type O NEGATIVE, Antibody Screen POSITIVE, Antibody Identification ANTI-D 12/01/24 01:35: Screen NEGATIVE, Baby's Blood Type A POSITIVE, Baby's BESSY NEGATIVE ROS Constitutional Constitutional: Reports systems reviewed and no addt'l complaints, except as documented; Denies anorexia or headache(s) Cardiovascular Cardiovascular: Reports systems reviewed and no addt'l complaints, except as documented; Denies dizziness, dyspnea, nausea or tachypnea Respiratory/Chest Respiratory/Chest: Reports systems reviewed and no addt'l complaints, except as documented; Denies cough, dyspnea, shortness of breath at rest or tachypnea Gastrointestinal Gastrointestinal: Reports systems reviewed and no addt'l complaints, except as documented; Denies abdominal pain, constipation or nausea Genitourinary Genitourinary: Reports systems reviewed and no addt'l complaints, except as documented; Denies burning urination, difficulty urinating, dysuria, urinary frequency or urinary incontinence Musculoskeletal Musculoskeletal: Reports systems reviewed and no addt'l complaints, except as documented Integumentary Integumentary: Reports systems reviewed and no addt'l complaints, except as documented Neurologic Neurologic: Reports systems reviewed and no addt'l complaints, except as documented; Denies abnormal speech, dizziness or headache(s) Psychiatric Psychiatric: Reports systems reviewed and no addt'l complaints, except as documented Endocrine Endocrinology: Reports systems reviewed and no addt'l complaints, except as documented Hematologic/Lymphatic Hematologic/Lymphatic: Reports systems reviewed and no addt'l complaints, except as documented Physical Exam Const alert, oriented x3 and no apparent distress Neck full ROM Resp normal respiratory effort, normal air movement and no retractions Effort and Inspection: able to speak in complete sentences and symmetric chest movement GI soft to palpation Bladder / Kidney Exam: bladder normal to palpation Uterus Palpation: uterus fundus firm Extremity normal to inspection and full ROM Psych mental status grossly normal, thought process normal and cooperative Assessment & Plan (1) (spontaneous vaginal delivery): COMMENT: BALWINDER Ghosh PLAN: s/p PPD # 1 1. routine post delivery care 2. breast feeding- support given 3. rh positive 4. rubella immune (2) Spontaneous onset of labor: (3) Uterine size-date discrepancy, third trimester: COMMENT: growth US ordered (4) Positive GBS test: COMMENT: PCN in labor (5) Supervision of normal first : QUALIFIERS: Trimester: third trimester Qualified Code(s): Z34.03 - Encounter for supervision of normal first , third trimester COMMENT: PRR , FLORIDALMA 12/12/24, boy Tenzin (6) : QUALIFIERS: Weeks of gestation: 37 weeks Qualified Code(s): Z 3A.37 - 37 weeks gestation of COMMENT: NIPT, ntd, & Carrier testing - declines. nl anatomy, nl glucose (7) Rh negative state in antepartum period: COMMENT: needs rhogam at 28 weeks and PRN Charges/Coding Multi Select Codes Urinary/Genital Urinary/Genital CPT Codes: No Charge
[2024-12-01 13:39] VITALS: BP 105/69; PULSE 105; RESP 16; TEMP 36.8; O2SAT 99
[2024-12-01 18:30] VITALS: BP 101/70; PULSE 99; RESP 18; TEMP 36.7; O2SAT 98
[2024-12-01 19:45] VITALS: BP 109/73; PULSE 99; RESP 16; TEMP 36.6; O2SAT 100
[2024-12-02 01:36] VITALS: BP 127/69; PULSE 103; RESP 16; TEMP 36.7; O2SAT 98
--- NOTE | 2024-12-02 08:01 | PCM.PN.CNM ---
Subjective Subjective Patient doing well without complaints. Tolerating PO. Ambulating and voiding without difficulty. Feeding well. Denies chest pain, shortness of breath, calf pain/swelling, fevers, chills, lightheadedness. Objective Data Objective Data Vital Signs: Vital Signs Temp Pulse Resp BP Pulse Ox O2 Del Method 98.0 F 103 H 16 127/69 H 98 Room Air 12/02/24 01:36 12/02/24 01:36 12/02/24 01:36 12/02/24 01:36 12/02/24 01:36 12/02/24 01:36 Oxygen Delivery Method Room Air Weight: 158 lb Body Mass Index (BMI) 24.7 Intake & Output: Intake and Output for Last 24 Hours 11/30/24 12/01/24 12/02/24 23:59 23:59 23:59 Intake Total 2054.50 / 2054.50 800 / 800 Output Total 800 / 800 900 / 900 Balance 1254.50 / 1254.50 -100 / -100 Lab / Micro Data 11/30/24 10:15 Physical Exam Const alert, oriented x3 and no apparent distress Neck full ROM Resp normal respiratory effort, normal air movement and no retractions Effort and Inspection: able to speak in complete sentences and symmetric chest movement GI soft to palpation Bladder / Kidney Exam: bladder normal to palpation Uterus Palpation: uterus fundus firm Extremity normal to inspection and full ROM Psych mental status grossly normal, thought process normal and cooperative Assessment & Plan (1) (spontaneous vaginal delivery): COMMENT: LC ANDREA Ghosh (2) Positive GBS test: COMMENT: PCN in labor (3) Rh negative state in antepartum period: COMMENT: needs rhogam at 28 weeks and PRN PLAN: Plan s/p PPD # 2 1. routine post delivery care 2. breast feeding- support given 3. rh positive 4. rubella immune 5. d/c home today
--- NOTE | 2024-12-02 08:02 | PCM.DC.SUM ---
Providers Date of Admission: 11/30/24 Primary Care Physician: No Primary Care Phys Reason For Visit: VAGINAL Diagnosis Discharge Diagnosis (1) (spontaneous vaginal delivery): Status: Acute Code(s): O80 - Encounter for full-term uncomplicated delivery (2) Positive GBS test: Status: Acute Code(s): B95.1 - Streptococcus, group B, as the cause of diseases classified elsewhere (3) Rh negative state in antepartum period: Status: Acute Code(s): O26.899 - Other specified related conditions, unspecified trimester; Z67.91 - Unspecified blood type, Rh negative Plan s/p PPD # 2 1. routine post delivery care 2. breast feeding- support given 3. rh positive 4. rubella immune 5. d/c home today Medications at Discharge Home Medications multivitamin no.47-iron fum 27 mg-folate no.1 1 mg-dha 300 mg capsule (PNV-DHA) 1 cap PO DAILY 05/02/24 Hospital Course Operations None Procedures None Summary of Care Provided Hospital Course: at 38.4 s/p with normal course. Physical Exam Const alert, oriented x3 and no apparent distress Neck full ROM Resp normal respiratory effort, normal air movement and no retractions Effort and Inspection: able to speak in complete sentences and symmetric chest movement GI soft to palpation Bladder / Kidney Exam: bladder normal to palpation Uterus Palpation: uterus fundus firm Extremity normal to inspection and full ROM Psych mental status grossly normal, thought process normal and cooperative Weight / BMI Weight Weight: 158 lb Body Mass Index (BMI) 24.7 ABG / Lab / Microbiology Data 11/30/24 10:15 D/C Instructions Discharge Diet: No restrictions May resume sexual activity in: 6 weeks Weight Bearing Status: Full weight bearing Call your doctor if your incision/area has: Sudden Increased Bleeding, Increased Pain/ Swelling and Foul Smelling Discharge Call your doctor if you observe: Fever of 101 or Higher, Numbness or Tingling, Change in Color, Inability to urinate, Inability to have a bowel movement, Using more than 1 pad per hour, Shortness of breath, Dizziness, Fainting spells, Chest pain, Calf discomfort and Uncontrolled pain DC O2, CPAP, BIPAP Needs Home O2 Discharge instructions: No Please Follow Up With: Hilda Hall CNM When: 6 weeks , please call office to make an appointment. Congratulations on the of your baby! Meaningful Use Info Meaningful Use Meaningful Use Diagnoses (Choose all that apply): None applicable Ischemic Stroke Statin Dosing Therapy Reference: STATIN DOSE THERAPY REFERENCE: * Patients > 75 years receive moderate or high dose statin therapy. * Patients 75 years or YOUNGER should receive HIGH intensity statin dose unless contraindicated. You will be required to document reason for non-treatment if statin daily dose does not meet guidelines. HIGH DOSE STATIN THERAPY DAILY Atorvastatin > than or = to 40 mg Rosuvastatin > than or = to 20 mg Amlodipine + Atorvastatin > than or = to 2.5/40 mg Ezetimibe + Simvastatin 10/80 mg Simvastatin 80mg Discharge Plan Admission Admit Date/Time: 11/30/24 09:59 Attending Provider: Hilda Hall Primary Care Provider: Care Physician,No Primary Discharge Orders/Prescriptions Prescriptions: No Action PNV-DHA 27 mg iron-1 mg -300 mg capsule 1 cap PO DAILY Referrals / Follow Up: Care Physician,No Primary [Primary Care Provider] - Disposition Disposition (needs filled in before D/C Order can be placed): Home, Self Care
[2024-12-02 08:10] VITALS: BP 102/67; PULSE 100; RESP 16; TEMP 36.6; O2SAT 100
== END 2024-12-02 11:30 | disposition home or self-care (01) | DRG 807 ==
LOC: WP 11:47
PROVIDERS: Admitting Provider Registered Nurse; Referring Provider Registered Nurse; Visit Provider Registered Nurse
DX: O26.843 Uterine size-date discrepancy, third trimester (principal); Z37.0 Single live birth; B95.1 Streptococcus, group B, as the cause of diseases classified elsewhere; Z3A.38 38 weeks gestation of pregnancy; O26.893 Other specified pregnancy related conditions, third trimester; Z67.91 Unspecified blood type, Rh negative; O70.0 First degree perineal laceration during delivery; O99.824 Streptococcus B carrier state complicating childbirth
CPT/HCPCS: 59025; 59050; 85025; 85461; 86780; 86850; 86870; 86900; 86901; 90384; 99221; A4216; G0378; J2790; J2791